=== PATIENT | female | born 1970 | race Hispanic/Latino ===

== ENCOUNTER 2024-11-06 13:07 | Emergency (ER) | payer OTHER, SELFPAY ==
[2024-11-06 13:12] VITALS: BP 153/74; PULSE 92; RESP 16; TEMP 36.8; O2SAT 100
--- NOTE | 2024-11-06 13:32 | ED.GENADULT ---
HPI - General Adult General Chief complaint: Upper Respiratory Infection Stated complaint: Chest Pain Time Seen by Provider: 11/06/24 13:32 Source: patient Mode of arrival: ambulatory Limitations: no limitations History of Present Illness HPI narrative: 54 y/o female with hx HTN presented for c/o palpitations and chest tightness today. States the palpitations cause her to cough. She was seen by cardiology in April for elevated heart rate, after she wore a monitor for a month she was told everything was ok. Denies dizziness, chest pain, n/v or fatigue.. Related Data Home Medications ?Medication ?Instructions ?Recorded ?Confirmed ?Last Taken ?Type amlodipine 10 mg tablet mg 11/06/24 Unknown History duloxetine 30 mg capsule,delayed mg PO 11/06/24 Unknown History release ergocalciferol (vitamin D2) 1,250 11/06/24 Unknown History mcg (50,000 unit) capsule famotidine 20 mg tablet mg 11/06/24 Unknown History folic acid 1 mg tablet 11/06/24 Unknown History lisinopril 20 tablet 11/06/24 Unknown History mg-hydrochlorothiazide 12.5 mg tablet meloxicam 15 mg tablet mg 11/06/24 Unknown History methotrexate sodium 2.5 mg tablet mg 11/06/24 Unknown History spironolactone 50 mg tablet mg 11/06/24 Unknown History Allergies Allergy/AdvReac Type Severity Reaction Status Date / Time No Known Allergies Allergy Verified 11/06/24 13:28 Review of Systems Review of Systems: CONSTITUTIONAL: Denies body aches, fever, chills, or sweats. EYES: Denies visual changes, redness, or discharge. ENT: Denies rhinorrhea, congestion, sore throat, or otalgia. CARDIOVASCULAR: Denies chest pain, reports palpitations RESPIRATORY: reports cough denies dyspnea. GASTROINTESTINAL: Denies abdominal pain, nausea, vomiting, or diarrhea. MUSCULOSKELETAL: Denies back pain, joint pain, or myalgia. NEUROLOGIC: Denies headache All systems reviewed & are unremarkable except as noted in HPI and below PMFSH Past Medical History Medical History (Updated 11/06/24 @ 14:05 by Tiffanie Puentes APRN) HTN (hypertension) Comments At time of signature, I have reviewed and agree with nursing past medical, surgical, social and family history unless otherwise noted. Please see nursing chart for further information. There is no relevant family history pertinent to the presenting complaint Exam Narrative: GENERAL: Well-appearing EYES: EOMI. No redness or drainage. Conjunctivae normal. ENT: Mucous membranes pink and moist. No rhinorrhea. TMs normal bilaterally. Throat normal. Uvula midline. NECK: Normal AROM. Supple. No lymphadenopathy. CHEST: No respiratory distress. Clear to auscultation. HEART: Regular rate and rhythm. murmur is appreciated. EXTREMITIES: Normal range of motion. No edema. SKIN: Warm, dry, no rash. Capillary refill normal. Normal skin turgor. NEURO: No focal deficits. Alert and oriented x3. Gait steady. PSYCH: Normal affect. Course Course Emergency Course: Patient is aware of diagnosis, understands and agrees to treatment plan. Anticipatory guidance given. Patient agrees to follow-up as directed and is aware of reasons to seek care at the emergency department. Portions of this record may have been created with voice recognition software Level of Care: Express Care Visit Vital Signs Vital signs: Vital Signs Temperature 98.2 F 11/06/24 13:12 Pulse Rate 92 11/06/24 13:12 Respiratory Rate 16 11/06/24 13:12 Blood Pressure 153/74 H 11/06/24 13:12 Pulse Oximetry 100 11/06/24 13:12 Oxygen Delivery Room Air 11/06/24 13:12 Temperature 98.2 F 11/06/24 13:12 Pulse Rate 92 11/06/24 13:12 Respiratory Rate 16 11/06/24 13:12 Blood Pressure 153/74 H 11/06/24 13:12 Pulse Oximetry 100 11/06/24 13:12 Oxygen Delivery Room Air 11/06/24 13:12 Medical Decision Making [facility] Narrative Medical decision making narrative: discussed physical exam findings EKG, normal sinus rhythm. Advised ER transfer for complaint of palpitations and chest tightness today Differential Diagnosis Differential Diagnosis: STEMI, AAA, PE, pneumothorax, cardiac tamponade, esophageal rupture, pneumonia, GERD, musculoskeletal pain, endocarditis, pericarditis, URI, bronchitis, anxiety Vital Signs Vital Signs: Vital Signs Temperature 98.2 F 11/06/24 13:12 Pulse Rate 92 11/06/24 13:12 Respiratory Rate 16 11/06/24 13:12 Blood Pressure 153/74 H 11/06/24 13:12 Pulse Oximetry 100 11/06/24 13:12 Oxygen Delivery Room Air 11/06/24 13:12 Temperature 98.2 F 11/06/24 13:12 Pulse Rate 92 11/06/24 13:12 Respiratory Rate 16 11/06/24 13:12 Blood Pressure 153/74 H 11/06/24 13:12 Pulse Oximetry 100 11/06/24 13:12 Oxygen Delivery Room Air 11/06/24 13:12 reviewed ECG Data EKG #1: Attestation: I personally reviewed and interpreted this ECG as follows: (NSR 89, [place] 182, QRS 90, QT/QTc 376/423) ECG completion date: 11/06/24 ECG completion time: 13:51 Prior ECG tracings: not available for review EKG Interpretation: normal rate and sinus rhythm Discharge Plan Discharge Clinical Impression: Heart palpitations Patient Disposition: Acute Care Hospital Condition: Stable Patient Language: Slovak Prescriptions: No Action lisinopril-hydrochlorothiazide 20-12.5 mg tablet meloxicam 15 mg tablet famotidine 20 mg tablet methotrexate sodium 2.5 mg tablet amlodipine 10 mg tablet folic acid 1 mg tablet ergocalciferol (vitamin D2) 1,250 mcg (50,000 unit) capsule spironolactone 50 mg tablet duloxetine 30 mg capsule,delayed release(DR/EC) PO Follow-up/Referrals: PHYSICIAN,CHIEF OF PRODUCTION [Primary Care Provider] - Time of Disposition: 14:04
--- NOTE | 2024-11-06 13:43 | ECG_ITS ---
Test Date: 2024-11-06 13:51:26 Measurements Intervals [place] Rate: 89 P: 57 LA: 182 QRS: 34 QRSD: 90 T: 62 QT: 376 QTc: 460 Interpretive Statements SINUS RHYTHM NONSPECIFIC T-WAVE ABNORMALITY No previous ECG available for comparison Electronically Signed On 11-06-2024 19:01:36 CAMBERING MACHINE OPERATOR by Neto Larkin
== END 2024-11-06 14:08 | disposition short-term general hospital (02) ==
PROVIDERS: Emergency Provider Nurse Practitioner Family
DX: R00.2 Palpitations (principal); I10 Essential (primary) hypertension
CPT/HCPCS: 93005; 99203; G0463

== ENCOUNTER 2025-01-12 13:38 | Emergency (ER) | payer OTHER, SELFPAY ==
--- OUTSIDE RECORDS SUMMARY | 2025-01-12 13:40 | XMS_ITS | Referral Summary ---
Author Organization [facility] Address [address] [facility] [place] [address] Care Team Providers Care Gospel Worker Name Role Phone Kerry Tejeda MD Unavailable Leo Bliss MD Unavailable [phone] Nasreen Nicholson PA-C Primary Care Pr ovider Source Comments [facility],non-owned Affiliates and Associated Physician Practices is amultiple site organization consisting of ambulatory clinics and hospital sitesin [place], [place], [place] and [place]. This disclosure is being madepursuant to the Care Everywhere program and may not contain all information available regarding this patient. Last updated 18.[facility] Encounters Date Type Department Care Team Description 12/29/2024 Refill [facility] - Rheumatology [address] [facility] [address] [place] [address] Lilibeth Smith MD Refill Request 12/18/2024 10:05 AM CORPORATE DIRECTOR - 12/18/2024 11:59 PM CORPORATE DIRECTOR Hospital Encounter [facility] Imaging Services - Radiology [address] [place], [place] [id number] David Childs MD Discharge Disposition: Home or Self Care 12/18/2024 Travel 12/18/2024 9:00 AM CORPORATE DIRECTOR Office Visit [facility] Care [address] [facility] [address] [facility] [place] [address] David Childs MD Lumbar facet arthropathy (Primary Dx); HNP (herniated nucleus pulposus), lumbar; Spinal stenosis of lumbar region, unspecified whether neurogenic claudication present; Lumbosacral radiculitis; Gait difficulty 12/16/2024 Refill [facility] Rheumatology [id number] [place] [address] [address] [place] [address] Lilibeth Smith MD Refill Request 12/11/2024 Travel 12/11/2024 1:15 PM CORPORATE DIRECTOR Office Visit [address] [place] [address] Lilibeth Smith MD Psoriatic arthritis (HCC) (Primary Dx); Immunosuppressed status (HCC); Vitamin D deficiency; Polyarthralgia; High risk medications (not anticoagulants) long-term use; Elevated sed rate 11/24/2024 Refill [facility] [id number] [place] [address] [address] [place] [address] Lilibeth Smith MD MEDICATION REFILL 11/19/2024 Refill [facility] [id number] [place] [address] [address] [place] [address] Lilibeth Smith MD Refill Request 10/13/[address] [address] Lilibeth Smith MD Refill Request from Last 3 Months Allergies No known active allergies Medications * Be aware that medications may not be up to date on this document. Alwaysverify current medications with the patient. Medication Sig Dispensed Refills Start Date End Date Status fluticasone propionate (FLONASE) 50 MCG/ACT nasal spray Augusta 1 [place]a into each nostril 2 times daily. 1 Bottle 0 1 Active HYDROcodone-ac etaminophen (NORCO) 5-325 MG tablet Take 1 Tab by mouth every 4 hours as needed for Pain 15 Tab 7 Active Additional Information Patient not taking.Reported on 08/16/2023 lisinopril-hyd roCHLOROthiazi de (PRINZIDE; ZESTORETIC) 20-12.5 MG tablet 0 Active amLODIPine (NORVASC) 5 MG tablet TK 1 T PO D FOR HIGH BP 0 Active acetaminophen CR (TYLENOL ARTHRITIS PAIN) 650 MG tablet Active cyclobenzaprin e (FLEXERIL) 5 MG tablet Take 1 (one) tablet by mouth nightly as needed Active traMADol-aceta minophen (Ultracet) 37.5-325 MG tablet Take 1 (one) tablet by mouth every 6 hours as needed for Pain 12 tablet 3 Active Additional Information Patient not taking.Reported on 04/09/2024 predniSONE (Deltasone) 5 MG tablet 4 tab po daily x 1 week, then 3 tab po daily x 1 week and then 2 tab po daily x 1 week and then 1 tab daily until finished and then stop 70 tablet 3 Active Additional Information Patient not taking.Reported on 12/20/2023 folic acid (Folvite) 1 MG tablet Take 1 (one) tablet by mouth once daily 90 tablet 1 4 Active meloxicam (Mobic) 15 MG tablet TAKE 1 TABLET BY MOUTH EVERY DAY WITH FOOD NEEDED FOR PAIN 90 tablet 4 Active vitamin D, ergocalciferol , (Drisdol) 1.25 MG (53524 UT) capsuleIndicat ions:Psoriatic arthritis (HCC),Immunosu ppressed status (HCC),Vitamin D deficiency Take 1 (one) capsule by mouth every 7 days 12 capsule 4 Active cefadroxil (Duricef) 500 MG capsule 4 Active famotidine (Pepcid) 20 MG tablet Take 1 (one) tablet by mouth 2 times daily Active omeprazole (PriLOSEC) 40 MG capsule Take 1 (one) capsule by mouth once daily 4 Active prednisoLONE acetate (Pred Forte) 1 % ophthalmic suspension INSTILL 1 DROP INTO LEFT EYE FOUR TIMES A DAY FOR 10 DAYS. 4 Active spironolactone (Aldactone) 50 MG tablet Take 1 (one) tablet by mouth once daily 4 Active DULoxetine (Cymbalta) 30 MG capsule Take 1 (one) capsule by mouth once daily 30 capsule 2 5 Active etanercept (Enbrel SureClick) 50 MG/ML auto-injector pen Inject 50 (fifty) mg subcutaneously every 7 days 4 mL 3 5 Active methotrexate 2.5 MG tabletIndicati ons:Psoriatic arthritis (HCC) TAKE 6 TABLETS BY MOUTH EVERY 7 DAYS. 72 tablet 5 Active methotrexate 2.5 MG tabletIndicati ons:Psoriatic arthritis (HCC) TAKE 6 TABLETS BY MOUTH EVERY 7 DAYS. 72 tablet 4 12/30/19 25 Discontinued etanercept (Enbrel SureClick) 50 MG/ML auto-injector pen Inject 50 (fifty) mg subcutaneously every 7 days 4 mL 3 5 12/16/19 25 Discontinued(Re order) Active Problems Patient Care Coordination No te Formatting of this note migh t be different from the original. Primary Care Provider: Kerry Tejeda MD [address] [phone] Referring Provider: Kerry Tejeda MD [address] [place] [address] Nurse prat: itzel nunez Problem Noted Date Diagnosed Date Gastroesophageal reflux disease 03/03/2022 Pain of upper abdomen 03/03/2022 Screen for colon cancer 03/03/2022 Anemia 03/03/2022 Chondromalacia of patellofemoral joint 7 Immunizations Name Administration Dates Next Due INFLUENZA VACCINE, TRIV. (AF LURIA, FLUZONE TRIVALENT; 6MO+) (IIV3) 09/22/2021 Covid Moderna primary monovalent 12+ yr 0.5mL ,02/17/2021 HEP A VACCINE, ADULT 02/05/2008 INFLUENZA VACCINE, QUADR. (A FLURIA, FLUZONE QUADRIVALENT; 6MO+) (IIV4) 10/29/2019 INFLUENZA VACCINE, QUADR. (F LUZONE; FLULAVAL; FLUARIX; AFLURIA QUADRIVALENT; 6MO+), 0.5 ML (IIV4) 12/18/2016 Social History Tobacco Use Types Packs/Day Years Used Date Smoking Tobacco: Never Smokeless Tobacco: Never Tobacco Cessation:Counseling Given: Not Answered Alcohol Use Standard Drinks/Week Comments No 0 (1 standard drink = 0.6 oz pur e alcohol) PHQ-2 Answer Date Recorded Patient Health Questionnaire-2 Score 0 12/18/2024 Sex and Gender Information Value Date Recorded Sex Assigned at Female 09/02/2021 8:47 PM CDT Gender Identity Female 09/02/2021 8:47 PM CDT Sexual Orientation Straight 09/02/2021 8: 47 PM CDT Last Filed Vital Signs Vital Sign Reading Time Taken Comments Blood Pressure 174/94 12/18/2024 9:22 AM CORPORATE DIRECTOR Pulse 94 12/18/2024 9:20 AM CORPORATE DIRECTOR Temperature 37 C (98.6 F) 08/14/2023 9:15 AM CDT Respiratory Rate 16 08/14/2023 9:15 AM CDT Oxygen Saturation 98% 08/07/2024 1:16 PM CDT Inhaled Oxygen Concentration - - Weight 81.6 kg (180 lb) 12/18/2024 9:20 AM CORPORATE DIRECTOR Height 149.9 cm (4' 11 ) 12/18/2024 9:20 AM CORPORATE DIRECTOR Body Mass Index 36.36 12/18/2024 9:20 AM CORPORATE DIRECTOR Functional Status Functional Status Response Date of Assess ment Is person deaf or have serious hearing difficult y? No 04/05/2022 Is person blind or have serious difficulty seein g? No 04/05/2022 Does person have serious dif ficulty walking/climbing stairs? No 04/05/2022 Does person have difficulty dressing/bathing? No 04/05/2022 Does person have difficulty doing errands alone? No 04/05/2022 Cognitive Status Response Date of Assessm ent Does person have difficulty concentrating/remembering/making decisions? No 04/05/2022 Plan of Treatment Upcoming Encounters Date Type Department Care Team (Late st Contact Info) Description 01/29/2025 9:20 AM CORPORATE DIRECTOR Office Visit [facility] [id number] [place] [address] [address] [facility] [place] [id number] [place] [id number] [place] [address] [address] [place] [address] 04/11/2025 8:30 AM CDT Office Visit [facility] - Rheumatology [address] [facility] [address] [place] [address] Ami Mclaughlin, NAIL MACHINE OPERATOR-SLAB INSPECTOR [address] [place] [address] Procedures Procedure Name Priority Date/Time Associated Diagnosis Comments XR LUMBAR SPINE 4VW OR MORE Routine 12/18/2024 10:17 AM CORPORATE DIRECTOR Lumbar facet arthropathy HNP (herniated nucleus pulposus), lumbar Spinal stenosis of lumbar region, unspecified whether neurogenic claudication present Lumbosacral radiculitis HEPATITIS SCREEN ACUTE ([facility]) Routine 12/04/2024 1:06 PM CORPORATE DIRECTOR Psoriatic arthritis (HCC) Immunosuppressed status (HCC) Vitamin D deficiency Polyarthralgia High risk medications (not anticoagulants) long-term use Elevated sed rate CBC W AUTO DIFFERENTIAL Routine 12/04/2024 1:06 PM CORPORATE DIRECTOR Psoriatic arthritis (HCC) Immunosuppressed status (HCC) Vitamin D deficiency Polyarthralgia High risk medications (not anticoagulants) long-term use Elevated sed rate VITAMIN D 25-HYDROXY Routine 12/04/2024 1:05 PM CORPORATE DIRECTOR Psoriatic arthritis (HCC) Immunosuppressed status (HCC) Vitamin D deficiency Polyarthralgia High risk medications (not anticoagulants) long-term use Elevated sed rate QUANTIFERON TB-GOLD Routine 12/04/2024 1 :05 PM CORPORATE DIRECTOR Psoriatic arthritis (HCC) Immunosuppressed status (HCC) Vitamin D deficiency Polyarthralgia High risk medications (not anticoagulants) long-term use Elevated sed rate ERYTHROCYTE SEDIMENTATION RATE Routine 12/04/2024 1:05 PM CORPORATE DIRECTOR Psoriatic arthritis (HCC) Immunosuppressed status (HCC) Vitamin D deficiency Polyarthralgia High risk medications (not anticoagulants) long-term use Elevated sed rate C-REACTIVE PROTEIN Routine 12/04/2024 1: 05 PM CORPORATE DIRECTOR Psoriatic arthritis (HCC) Immunosuppressed status (HCC) Vitamin D deficiency Polyarthralgia High risk medications (not anticoagulants) long-term use Elevated sed rate COMPREHENSIVE METABOLIC PANEL Routine 12/04/2024 1:05 PM CORPORATE DIRECTOR Psoriatic arthritis (HCC) Immunosuppressed status (HCC) Vitamin D deficiency Polyarthralgia High risk medications (not anticoagulants) long-term use Elevated sed rate MAMMO BILAT SCREENING W AZUCENA Routine 08/17/2023 2:49 PM CDT Encounter for screening mammogram for malignant neoplasm of breast HIV-1 HIV-2 ANTIBODY + HIV P24 AG PANEL STAT 07/03/2022 11:37 PM CDT ENDOSCOPY, COLON, SCREENING Routine 04/05/2022 8:43 AM CDT LIPID PROFILE AM Draw 12/18/2016 1:40 AM CORPORATE DIRECTOR from Last 3 Months or Most Recently Relevant to Health Maintenance Results * XR Lumbar Spine 4Vw or More (12/18/2024 10:17 AM CORPORATE DIRECTOR) Anatomical Region Laterality Modality Spine Computed Radiogr aphy 12/18/2024 2:34 PM CORPORATE DIRECTOR Impressions 12/18/2024 3:17 PM CORPORATE DIRECTOR IMPRESSION: No acute osseous abnormality. Edited by Tracey Hodges on 12/18/2024 2:51 PM > Interpreting Provider: Deshaun Bella MD on 12/18/2024 3:17 PM Narrative 12/18/2024 3:17 PM CORPORATE DIRECTOR PROCEDURE: XR LUMBAR SPINE 4VW OR MORE DATE/TIME OF EXAM: 12/18/2024 10:17 AM INDICATION: M47.816: Spondylosis without myelopathy or radiculopathy, lumbar region. M51.26: Other intervertebral disc displacement, lumbar region. M48.061: Spinal stenosis, lumbar region without neurogenic claudication. M54.17: Radiculopathy, lumbosacral region. Additional History: COMPARISON: None. TECHNIQUE: 5 views. FINDINGS: Mild endplate degenerative changes are present. There is no acute fracture, subluxation or dislocation. Procedure Note Deshaun Bella MD - 12/18/2024 PROCEDURE: XR LUMBAR SPINE 4VW OR MORE DATE/TIME OF EXAM: 12/18/2024 10:17 AM INDICATION: M47.816: Spondylosis without myelopathy or radiculopathy, lumbar region. M51.26: Other intervertebral disc displacement, lumbar region. M48.061: Spinal stenosis, lumbar region without neurogenic claudication. M54.17: Radiculopathy, lumbosacral region. Additional History: COMPARISON: None. TECHNIQUE: 5 views. FINDINGS: Mild endplate degenerative changes are present. There is no acutefracture, subluxation or dislocation. IMPRESSION: No acute osseous abnormality. Edited by Tracey Hodges on 12/18/2024 2:51 PM > Interpreting Provider: Deshaun Bella MD on 12/18/2024 3:17 PM David Childs MD DIAGNOSTIC IMAGING O RDERABLES * HEPATITIS SCREEN ACUTE ([facility]) (12/04/2024 1:06 PM CORPORATE DIRECTOR) Hepatitis A Virus Antibody IgM Negative Negative [facility] ACCOUNT BILL Comment: A negative anti-HAV IgM result suggests no recent or current HAV infection. Hepatitis B Virus Surface Antigen Negative Negative [facility] ACCOUNT BILL Hepatitis B Core Virus Antibody IgM Negative Negative [facility] ACCOUNT BILL Hepatitis C Antibody Non Reactive Non Reactive [facility] ACCOUNT BILL Comment: Performed at: - [facility] [address] [id number] Relations Mgr: Asa Perdomo PhD, Phone: [phone] Interpretation Comment [facility] ACCOUNT BILL Comment: Not infected with HCV unless early or acute infection is suspected (which may be delayed in an immunocompromised individual), or other evidence exists to indicate HCV infection. Blood BLOOD SPECIMEN / Unknown 12/04/2024 1:06 PM CORPORATE DIRECTOR 12/04/2024 Narrative [facility] ACCOUNT BILL - 12/05/2024 7:09 AM CORPORATE DIRECTOR Performed at: - [facility] [address] [id number] Relations Mgr: Asa Perdomo PhD, Phone: [phone] Lilibeth Smith MD LAB - CHEMISTRY ROBERTH STEPHENSON [facility] ACCOUNT BILL [address] [place] [address] * (ABNORMAL) CBC WITH DIFFERENTIAL (12/04/2024 1:06 PM CORPORATE DIRECTOR) WBC 6.3 3.4 - 10.8 x10E3/uL [facility] ACCOUNT BILL RBC 3.72(L) 3.77 - 5.28 x10E6/uL [facility] ACCOUNT BILL Hemoglobin 12.0 11.1 - 15.9 g/dL [facility] ACCOUNT BILL Hematocrit 36.8 34.0 - 46.6 % [facility] ACCOUNT BILL MCV 99(H) 79 - 97 fL [facility] ACCOUNT BILL MCH 32.3 26.6 - 33.0 pg [facility] ACCOUNT BILL MCHC 32.6 31.5 - 35.7 g/dL [facility] ACCOUNT BILL RDW 12.8 11.7 - 15.4 % [facility] ACCOUNT BILL Platelet Count 307 150 - 450 x10E3/uL [facility] ACCOUNT BILL Granulocytes % 55 Not Estab. % [facility] ACCOUNT BILL Lymphocytes % 28 Not Estab. % [facility] ACCOUNT BILL Monocytes % 10 Not Estab. % [facility] ACCOUNT BILL Eosinophils % 5 Not Estab. % [facility] ACCOUNT BILL Basophils % 1 Not Estab. % [facility] ACCOUNT BILL Granulocytes Absolute 3.5 1.4 - 7.0 x10E3/uL [facility] ACCOUNT BILL Lymphocytes Absolute 1.8 0.7 - 3.1 x10E3/uL [facility] ACCOUNT BILL Monocytes Absolute 0.6 0.1 - 0.9 x10E3/uL [facility] ACCOUNT BILL Eosinophils Absolute 0.3 0.0 - 0.4 x10E3/uL [facility] ACCOUNT BILL Basophils Absolute 0.0 0.0 - 0.2 x10E3/uL [facility] ACCOUNT BILL Immature Granulocytes 1 Not Estab. % [facility] ACCOUNT BILL Immature Granulocytes Absolute 0.1 0.0 - 0.1 x10E3/uL [facility] ACCOUNT BILL Blood BLOOD SPECIMEN / Unknown 12/04/2024 1:06 PM CORPORATE DIRECTOR 12/04/2024 Narrative [facility] ACCOUNT BILL - 12/05/2024 6:10 AM CORPORATE DIRECTOR Performed at: - [address], [place], [place] [id number] Relations Mgr: Asa Perdomo PhD, Phone: [phone] Lilibeth Smith MD LAB - HEMATOLOGY ORD ERABLES [facility] ACCOUNT BILL [address] [place] [address] * C-REACTIVE PROTEIN (12/04/2024 1:05 PM CORPORATE DIRECTOR) C-Reactive Protein 2 0 - 10 mg/L [facility] ACCOUNT BILL Blood BLOOD SPECIMEN / Unknown 12/04/2024 1:05 PM CORPORATE DIRECTOR 12/04/2024 Narrative [facility] ACCOUNT BILL - 12/05/2024 7:09 AM CORPORATE DIRECTOR Performed at: - [facility] [address] [id number] Relations Mgr: Asa Perdomo PhD, Phone: [phone] Lilibeth Smith MD LAB - CHEMISTRY ORDE RABCHIQUITA Performing Organization Address City/[facility]/ZIP Co de Phone Number [facility] ACCOUNT BILL [address] [place] [address] * VITAMIN D 25-HYDROXY (12/04/2024 1:05 PM CORPORATE DIRECTOR) Vitamin D, 25 Hydroxy 37.3 30.0 - 100.0 ng/mL [facility] ACCOUNT BILL Comment: Vitamin D deficiency has been defined by the Roosevelt of Medicine and an Endocrine Society practice guideline as a level of serum 25-OH vitamin D less than 20 ng/mL (1,2). The Endocrine Society went on to further define vitamin D insufficiency as a level between 21 and 29 ng/mL (2). 1. IOM (Roosevelt of Medicine). 2010. Dietary reference intakes for calcium and D. [place]: The National Academies Press. 2. Gunjan MF, Kam [place], Huy BELLO, et al. Evaluation, treatment, and prevention of vitamin D deficiency: an Endocrine Society clinical practice guideline. JCEM. 2010; 96(7):1911-30. Blood BLOOD SPECIMEN / Unknown 12/04/2024 1:05 PM CORPORATE DIRECTOR 12/04/2024 Narrative [facility] ACCOUNT BILL - 12/05/2024 8:13 AM CORPORATE DIRECTOR Performed at: [address] [place] [id number] Relations Mgr: Asa Perdomo PhD, Phone: [phone] Lilibeth Smith MD LAB - CHEMISTRY ROBERTH STEPHENSON [facility] ACCOUNT BILL [address] [place] [address] * QUANTIFERON TB-GOLD (12/04/2024 1:05 PM CORPORATE DIRECTOR) [facility] QuantiFERON Incubation Incubation performed. [facility] ACCOUNT BILL QuantiFERON-TB Gold Plus Negative Negative [facility] ACCOUNT BILL Comment: No response to M tuberculosis antigens detected. Infection with M tuberculosis is unlikely, but high risk individuals should be considered for additional testing (ATS/IDSA/CDC Clinical Practice Guidelines, 2017). The reference range is an Antigen minus Nil result of <0.35 IU/mL. Chemiluminescence immunoassay methodology Performed at: [address] [place] [id number] Relations Mgr: Asa Perdomo PhD, Phone: [phone] QuantiFERON Criteria Comment [facility] ACCOUNT BILL Comment: QuantiFERON-TB Gold Plus is a qualitative indirect test for M tuberculosis infection (including disease) and is intended for use in conjunction with risk assessment, radiography, and other medical and diagnostic evaluations. The QuantiFERON-TB Gold Plus result is determined by subtracting the Nil value from either TB antigen (Ag) value. The Mitogen tube serves as a control for the test. QuantiFERON TB1 Ag Value 0.05 IU/mL [facility] ACCOUNT BILL QuantiFERON TB2 Ag Value 0.07 IU/mL [facility] ACCOUNT BILL QuantiFERON Nil Value 0.01 IU/mL [facility] ACCOUNT BILL QuantiFERON Mitogen Value >10.00 IU/mL [facility] ACCOUNT BILL Blood BLOOD SPECIMEN / Unknown 12/04/2024 1:05 PM CORPORATE DIRECTOR 12/04/2024 Narrative [facility] ACCOUNT BILL - 12/06/2024 7:07 PM CORPORATE DIRECTOR Performed at: [address] [place] [id number] Relations Mgr: Asa Perdomo PhD, Phone: [phone] Lilibeth Smith MD LAB - CHEMISTRY ORDKarina STEPHENSON Performing Organization Address City/[facility] Co de Phone Number [facility] ACCOUNT BILL [address] [place] [address] * ERYTHROCYTE SEDIMENTATION RATE (12/04/2024 1:05 PM CORPORATE DIRECTOR) Erythrocyte Sedimentation Rate Westergren 23 0 - 40 mm/hr [facility] ACCOUNT BILL Blood BLOOD SPECIMEN / Unknown 12/04/2024 1:05 PM CORPORATE DIRECTOR 12/04/2024 Narrative [facility] ACCOUNT BILL - 12/05/2024 7:09 AM CORPORATE DIRECTOR Performed at: - [address] [id number] Relations Mgr: Asa Perdomo PhD, Phone: [phone] Lilibeth Smith MD LAB - HEMATOLOGY ORD LANA Performing Organization Address [facility] Co de Phone Number [facility] ACCOUNT BILL [address] [place] [address] * (ABNORMAL) COMPREHENSIVE METABOLIC PANEL (12/04/2024 1:05 PM CORPORATE DIRECTOR) Pathologist [facility] Glucose 139(H) 70 - 99 mg/dL [facility] ACCOUNT BILL BUN 11 6 - 24 mg/dL [facility] ACCOUNT BILL Creatinine 0.56(L) 0.57 - 1.00 mg/dL [facility] ACCOUNT BILL eGFR by CKD-EPI 109 >59 mL/min/1.7 3 [facility] ACCOUNT BILL BUN/Creatinine Ratio 20 9 - 23 [facility] ACCOUNT BILL Sodium 139 134 - 144 mmol/L [facility] ACCOUNT BILL Potassium 3.9 3.5 - 5.2 mmol/L [facility] ACCOUNT BILL Chloride 101 96 - 106 mmol/L [facility] ACCOUNT BILL CO2 22 20 - 29 mmol/L [facility] ACCOUNT BILL Calcium 10.1 8.7 - 10.2 mg/dL [facility] ACCOUNT BILL Protein Total 7.9 6.0 - 8.5 g/dL [facility] ACCOUNT BILL Albumin 4.4 3.8 - 4.9 g/dL [facility] ACCOUNT BILL Globulin Total 3.5 1.5 - 4.5 g/dL [facility] ACCOUNT BILL Bilirubin Total <0.2 0.0 - 1.2 mg/dL [facility] ACCOUNT BILL Alkaline Phosphatase 84 44 - 121 IU/L [facility] ACCOUNT BILL AST 26 0 - 40 IU/L [facility] ACCOUNT BILL ALT 30 0 - 32 IU/L [facility] ACCOUNT BILL Blood BLOOD SPECIMEN / Unknown 12/04/2024 1:05 PM CORPORATE DIRECTOR 12/04/2024 Narrative [facility] ACCOUNT BILL - 12/05/2024 7:09 AM CORPORATE DIRECTOR Performed at: 01 - [facility] [address], [place] [id number] Relations Mgr: Asa Perdomo PhD, Phone: [phone] Lilibeth Smith MD LAB - CHEMISTRY ROBERTH STEPHENSON [facility] ACCOUNT BILL [address] [place] [address] * MAMMO BILAT SCREENING W AZUCENA (08/17/2023 2:49 PM CDT) Anatomical Region Laterality Modality Breast Bilateral Mammography 08/18/2023 8:23 AM CDT Impressions 08/18/2023 8:34 AM CDT : There is no mammographic evidence of malignancy. OVERALL FINAL ASSESSMENT: BI-RADS Category 2: Benign. Annual screening mammography is recommended. > Interpreting Provider: Jigna Mcbride MD on 08/18/2023 8:34 AM Narrative 08/18/2023 8:34 AM CDT EXAMINATION: BILATERAL DIGITAL SCREENING MAMMOGRAM AND BILATERAL BREAST TOMOSYNTHESIS HISTORY: Screening. COMPARISON: Serial examinations dating back to 2020. TECHNIQUE: BILATERAL digital breast tomosynthesis (DBT) and synthetic 2D digital mammogram images were obtained (bilateral craniocaudal and mediolateral oblique projections) including computer aided detection (CAD.) BREAST PARENCHYMAL COMPOSITION:Category C: The breasts are heterogeneously dense which may obscure small masses. MAMMOGRAM FINDINGS: There are no new suspicious masses, calcifications, or areas of architectural distortion in either breast, and there has been no significant interval change. There is a stable benign cyst in the left breast. Melisa Marvin NAIL MACHINE OPERATOR-SLAB INSPECTOR MAMMO ORDERABLES * HIV-1 HIV-2 ANTIBODY + HIV P24 AG PANEL (07/03/2022 11:37 PM CDT) HIV1/2 Ab + P24 Ag Non Reactive Non Reactive 07/04/2022 12:37 AM CDT [facility] Blood BLOOD SPECIMEN / Unknown Venipuncture / Unknown 07/03/2022 11:37 PM CDT 07/03/2022 11:56 PM CDT Narrative [facility] - 07/04/2022 12:37 AM CDT No Laboratory evidence of HIV infection. Lizette Mazariegos MD LAB - CHEMISTRY ROBERTH STEPHENSON [facility] Organization Address City/State/ZIP Co de Phone Number [facility] [address] [place] [address] * ENDOSCOPY, COLON, SCREENING (04/05/2022 8:43 AM CDT) Report Endoscopy POC _ Patient Name: Ghada Coto Procedure Date: 04/05/2022 8:43 AM Date of : 1970 Admit Type: Outpatient Age: 51 Gender: Female Attending MD: Shira Hogan MD _ Procedure: Colonoscopy Indications: Screening for colorectal malignant neoplasm Providers: Shira Hogan MD (Doctor) Referring MD: Ivet Tejeda MD (Referring MD) Medicines: Monitored Anesthesia Care Complications: No immediate complications. _ Estimated Blood Loss: Estimated blood loss: none. Procedure: Pre-Anesthesia Assessment: - Prior to the procedure, a History and Physical was performed, and patient medications and allergies were reviewed. The patient's tolerance of previous anesthesia was also reviewed. The risks and benefits of the procedure and the sedation options and risks were discussed with the patient. All questions were answered, and informed consent was obtained. Prior Anticoagulants: The patient has taken no previous anticoagulant or antiplatelet agents. After reviewing the risks and benefits, the patient was deemed in satisfactory condition to undergo the procedure. After I obtained informed consent, the scope was passed under direct vision. Throughout the procedure, the patient's blood pressure, pulse, and oxygen saturations were monitored continuously. The Colonoscope was introduced through the anus and advanced to the terminal ileum. The colonoscopy was performed without difficulty. The patient tolerated the procedure well. The quality of the bowel preparation was evaluated using the BBPS (Dillon Bowel Preparation Scale) with scores of: Right Colon = 3, Transverse Colon = 3 and Left Colon = 3 (entire mucosa seen well with no residual staining, small fragments of stool or opaque liquid). The total BBPS score equals 9. Findings: The perianal and digital rectal examinations were normal. A 3 mm polyp was found in the sigmoid colon. The polyp was sessile. The polyp was removed with a cold biopsy forceps. Resection and retrieval were complete. The exam was otherwise without abnormality on direct and retroflexion views. The terminal ileum appeared normal. Internal hemorrhoids were found during retroflexion. _ Impression: - One 3 mm polyp in the sigmoid colon, removed with a cold biopsy forceps. Resected and retrieved. - The examination was otherwise normal on direct and retroflexion views. - The examined portion of the ileum was normal. - Internal hemorrhoids. Recommendation: - Repeat colonoscopy in 5 years for surveillance. Procedure Code(s): --- Professional --- 84152, Colonoscopy, flexible; with biopsy, single or multiple --- Technical --- 31130, Colonoscopy, flexible; with biopsy, single or multiple Diagnosis Code(s): --- Professional --- Z12.11, Encounter for screening for malignant neoplasm of colon K63.5, Polyp of colon --- Technical --- Z12.11, Encounter for screening for malignant neoplasm of colon K63.5, Polyp of colon CPT copyright 2019 [employer]. All rights reserved. The codes documented in this report are preliminary and upon dynamic balancer set up worker review may be revised to meet current compliance requirements. __ Shira Hogan MD 04/05/2022 10:22:06 AM Number of Addenda: 0 Note Initiated On: 04/05/2022 8:43 AM [facility] 04/05/2022 8:43 AM CDT Shira Hogan MD GI PROCEDURE ORDERAB LES [facility] [place] [address] * LIPID PROFILE (12/18/2016 1:40 AM CORPORATE DIRECTOR) Cholesterol 193 <200 mg/dL 12/18/2016 2:25 AM CORPORATE DIRECTOR [facility] Triglycerides 135 <150 mg/dL 12/18/2016 2:25 AM CORPORATE DIRECTOR [facility] HDL Cholesterol 47 >40 mg/dL 7 2:25 AM CORPORATE DIRECTOR [facility] LDL Calculated 119 <130 mg/dL 12/18/2016 2:25 AM CORPORATE DIRECTOR [facility] VLDL Calculated 27 <=30 mg/dL 7 2:25 AM [facility] Chol HDL Ratio 4.1 <4.5 12/18/2016 2:25 AM CORPORATE DIRECTOR [facility] LDL/HDL Ratio 2.5 <5.0 12/18/2016 2:25 AM [facility] Blood BLOOD SPECIMEN / Unknown 12/18/2016 1:40 AM CORPORATE DIRECTOR 12/18/2016 2:02 AM CORPORATE DIRECTOR Matt Busch DO LAB - CHEMISTRY ORD ERABLES [facility] [address] [place] [address] from Last 3 Months or Most Recently Relevant to Health Maintenance Administered Medications Advance Directives * Full Code (Latest Code Status on File) Date Activated Date Inactivated Comments 12/17/2016 6:19 AM 12/18/2016 3:34 PM Care Teams Gospel Worker Relationship Specialty Start Date End Date Nasreen Nicholson PA-C [address] [place] [address] PCP - General Physician Frame Trimmer 12/11/24 Kerry Tejeda MD [address] [place] [address] Internal Medicine 08/05/20 [place] [address] [place] [id number] Orthopedic Surgery 07/26/17
--- OUTSIDE RECORDS SUMMARY | 2025-01-12 13:40 | XMS_ITS | Clinical Summary ---
Author Organization [facility] Address [address] [place] [address] Care Team Providers Care Insurance Case Manager Name Role Phone Nasreen Nicholson Primary Care Prov ider Allergies No known active allergies Medications lisinopril-hydr oCHLOROthiazide (ZESTORETIC) 20-12.5 mg per tablet Take 1 tablet by mouth daily Active etanercept (ENBREL) 25 mg/0.5 mL (0.5) injection Inject 1 mL (50 mg total) under the skin once a week Takes on Monday Active methotrexate 2.5 mg tablet Take 1 tablet (2.5 mg total) by mouth every 7 days Takes on Mondays Active folic acid (FOLVITE) 1 mg tablet Take 1 tablet (1 mg total) by mouth daily Active amLODIPine (NORVASC) 5 mg tablet Take 1 tablet (5 mg total) by mouth daily Active omeprazole (PriLOSEC) 40 mg capsule Take 1 capsule (40 mg total) by mouth daily 30 capsule Active Active Problems Problem Noted Date Diagnosed Date Anxiety 03/05/2024 Diastolic dysfunction 02/13/2024 Left ventricular hypertrophy 02/13/2024 Low vitamin D level 02/13/2024 Migraine 02/13/2024 Mitral valve insufficiency 02/13/2024 Psoriatic arthritis 02/13/2024 Overview (07/18/2024): RHEUM follows Palpitations 02/09/2024 Assessment & Plan (02/09/2024 4:59 AM CDT): Patient presents with tachycardia from home. Appears to be spontaneous and has never happened before. ECG read by myself, sinus tachycardia, no axis deviation, no ST-T deviations, probable left atrial enlargement noted. There was a soft murmur noted on physical exam. She did have a feeling of impending doom with 1 episode of tachycardia. Differential includes but not limited to SVT and/or anxiety and/or other arrhythmia and/or endocrine disorder (thyroid disorder ruled out) - continue on telemetry - daily CBC, CMP, magnesium, phosphorus - echocardiogram - PT/OT Arthritis 02/09/2024 Assessment & Plan (02/09/2024 5:00 AM CDT): Unsure of type of arthritis, patient had DMARD therapy. Most likely rheumatoid arthritis due to deformity in the nails. -continue home methotrexate and etanercept Essential hypertension 02/09/2024 Assessment & Plan (02/09/2024 4:59 AM CDT): Continue home amlodipine and lisinopril, blood pressure not controlled Class 1 obesity 02/09/2024 Assessment & Plan (02/09/2024 4:59 AM CDT): Body mass index is 34.5 kg/m . - nutrition consultation Anemia 03/03/2022 Gastroesophageal reflux disease without esophagi tis 03/03/2022 Pain of upper abdomen 03/03/2022 Chondromalacia of patellofemoral joint 7 Facial cellulitis 03/14/2015 Lip pain 03/14/2015 Lip swelling 03/14/2015 Encounters Date Type Department Care Team Description 11/06/2024 6:27 PM TIRE BEADER MAKER - 11/06/2024 8:21 PM TIRE BEADER MAKER Emergency [facility] Emergency Department [address] [place] [address] Chest pain, unspecified type (Primary Dx) Discharge Disposition: Discharge to home or self care 10/31/2024 12:20 PM TIRE BEADER MAKER - 10/31/2024 11:59 PM TIRE BEADER MAKER Hospital Encounter [facility] [address] [place] [address] Encounter for disability determination Discharge Disposition: Discharge to home or self care from Last 3 Months Immunizations Immunization Administration Dates Next Due Hep A, Adult 02/05/2008 Influenza, Quadrivalent, Split, Intramuscular Influenza, Quadrivalent, Spl it, Preservative Free, Intramuscular 12/18/2016 Influenza, Trivalent, IM (MDV) 09/22/2021 Moderna SARS-CoV-2 Monovalent Vaccination (12+ Y RS) 03/17/2021,02/17/2021 PPD TEST 06/27/2008 Surgical History Surgery Date Site/Laterality Comments TUBAL LIGATION Medical History Medical History Date Comments Personal history of other di seases of the female genital tract History of - (Adde d by TW Conv) Hypertension Family History Medical History Relation Name Comments Diabetes Mother Heart disease Mother Kidney disease Mother Heart attack Sister Kidney disease Sister Diabetes Son Relation Name Status Comments Mother Sister Son Social History Tobacco Use Types Packs/Day Years Used Date Smoking Tobacco: Never Smokeless Tobacco: Never Tobacco Cessation:Counseling Given: No [employer] Utilities Answer Date Recorded In the past 12 months has [place], gas, oil, or water isocket threatened to shut off services in your home? No 02/09/2024 Social Connection and Isolat ion Panel [NHANES] Answer Date Recorded In a typical week, how many times do you talk on the phone with family, friends, or neighbors? Three times a week 02/09/2024 How often do you get togethe r with friends or relatives? More than three times a week 02/09/2024 How often [facility] you attend [facility] or [facility] services? Never 02/09/2024 Do you belong to any clubs o r organizations such as jain groups, unions, fraternal or athletic groups, or school groups? No 02/09/2024 How often do you attend meet ings of the clubs or organizations you belong to? Never 02/09/2024 Are you , , di vorced, , never , or living with a partner? 02/09/2024 AUDIT-C Answer Date Recorded Q1: How often do you have a drink containing alcohol? Never 02/09/2024 Q2: How many drinks containi ng alcohol do you have on a typical day when you are drinking? Patient does not drink Q3: How often do you have si x or more drinks on one occasion? Never 02/09/2024 Overall Financial Resource Strain (CARDIA) Answe r Date Recorded How hard is it for you to pa y for the very basics like food, housing, medical care, and heating? Not very hard 02/09/2024 Hunger Vital Sign Answer Date Recorded Within the past 12 months, y ou worried that your food would run out before you got the money to buy more. Never true 02/09/20 24 Within the past 12 months, t he food you bought just didn't last and you didn't have money to get more. Never true 02/09/2024 PRAPARE - Transportation Answer Date Re corded In the past 12 months, has l ack of transportation kept you from medical appointments or from getting medications? No 01/25 In the past 12 months, has l ack of transportation kept you from meetings, work, or from getting things needed for daily living? No 02/09/2024 Housing Stability Vital Sign Answer Ismael e Recorded In the last 12 months, was t here a time when you were not able to pay the mortgage or rent on time? No 02/09/2024 In the last 12 months, how many places have you lived? 1 02/09/2024 In the last 12 months, was t here a time when you did not have a steady place to sleep or slept in a usp (including now)? No 02/09/2024 Personal Safety Answer Date Recorded Have you ever been in or are you currently in a harmful physical or emotional relationship or is someone making you feel afraid or unsafe? Denies 11/06/2024 Education Answer Date Recorded What is the highest level of school you have completed or the highest degree you have received? Associate degree: occupational, technical, or vocational program 02/09/2024 Comments No Sex and Gender Information Value Date Recorded Sex Assigned at Not on file Legal Sex Female 7:24 AM TIRE BEADER MAKER Gender Identity Not on file Sexual Orientation Not on file Obstetrics History Para Term AB IAB SAB Ectopic Multiple Livin g Live Births 4 4 4 0 0 0 0 0 0 0 0 Date Outcome GA Total Labor Labor/2nd/3rd Weight Sex Type Anes PTL Renetta A1 A5 Name Clin 992 Term M Vag-Sp ont 999 Term M CS-Uns pec 005 Term F CS-Uns pec 009 Term F CS-Uns pec Last Filed Vital Signs Vital Sign Reading Time Taken Comments Blood Pressure 128/59 11/06/2024 7:53 PM TIRE BEADER MAKER Pulse 86 11/06/2024 7:53 PM TIRE BEADER MAKER Temperature 36.8 C (98.2 F) 11/06/2024 2:41 PM TIRE BEADER MAKER Respiratory Rate 15 11/06/2024 7:53 PM TIRE BEADER MAKER Oxygen Saturation 97% 11/06/2024 7:53 PM TIRE BEADER MAKER Inhaled Oxygen Concentration - - Weight 78.9 kg (174 lb) 11/06/2024 2:41 PM TIRE BEADER MAKER Height 149.9 cm (4' 11 ) 11/06/2024 2:41 PM TIRE BEADER MAKER Body Mass Index 35.14 11/06/2024 2:41 PM TIRE BEADER MAKER Plan of Treatment Health Maintenance Due Date Last Done Comments Colon Cancer Screening-Colonoscopy 1971 Depression Screening 1971 Hepatitis C Screening 1971 Pneumococcal vaccine <65 (1 of 2 - PCV) 1977 DTaP/Tdap/Td Vaccine (1 - Tdap) 1982 Hepatitis B Screening 1989 Zoster Vaccine (1 of 2) 1990 Covid-19 Vaccine (3 - Modern a risk series) 04/14/2021 03/17/2021, 02/17/2021 Influenza Vaccine (#1) 2024 , 10/29/2019, 12/18/2016 Breast Cancer Screening-Mammogram 08/08/2025 08/08/2024, 08/17/2023, 08/17/2023, Additional history exists Cervical Cancer Screening 08/08/2025 08/08/2024, 10/2024 Regular Well Visit/Exam 18-64 08/08/2025 08/08/2024 Procedures Procedure Name Priority Date/Time Associated Diagnosis Comments PRO B-TYPE NATRIURETIC PEPTIDE STAT 11/06/2024 7:14 PM TIRE BEADER MAKER TROPONIN T HIGH-SENSITIVITY 4-HR Timed 11/06/2024 7:14 PM TIRE BEADER MAKER XR CHEST 1 VIEW ED 11/06/2024 4:05 PM TIRE BEADER MAKER EGFR STAT 11/06/2024 2:54 PM TIRE BEADER MAKER DIFFERENTIAL AUTO STAT 11/06/2024 2:5 4 PM TIRE BEADER MAKER TROPONIN T HIGH-SENSITIVITY SERIES (BASELINE, 2HR, 4HR, 6HR) STAT 11/06/2024 2:54 PM TIRE BEADER MAKER COMPREHENSIVE METABOLIC PANEL STAT 11/06/2024 2:54 PM TIRE BEADER MAKER CBC WITH AUTO DIFFERENTIAL STAT 11/06/2024 2:54 PM TIRE BEADER MAKER ECG 12-LEAD STAT 11/06/2024 2:38 PM TIRE BEADER MAKER XR HAND RIGHT 2 VIEWS Schedule Routine, Read Routine (OP Routine) 10/31/2024 12:33 PM TIRE BEADER MAKER Encounter for disability determination XR HAND LEFT 2 VIEWS Schedule Routine, Read Routine (OP Routine) 10/31/2024 12:33 PM TIRE BEADER MAKER Encounter for disability determination HIGH RISK HPV DNA DETECTION WITH GENOTYPING Routine 08/08/2024 11:11 AM CDT Screening for malignant neoplasm of cervix SCREENING MAMMOGRAM BILATERAL W FRANCISCO J Schedule Routine, Read Routine (OP Routine) 08/08/2024 11:04 AM CDT Encounter for screening mammogram for malignant neoplasm of breast from Last 3 Months or Most Recently Relevant to Health Maintenance Results * Troponin T high-sensitivity 4-hour (11/06/2024 7:14 PM TIRE BEADER MAKER) Trop T hs <6 <=14 ng/L Comment: Interpretive Data For further hscTnT resources including the diagnostic algorithm and an aid in interpretation, copy and paste this link: https://nrl.testcatalog.org/show/hsTrop Current Interpretive Data last revised 2020. Trop T hs delta 0 ng/L [facility] ([facility]) Trop T hs interp Insignificant [facility] ([facility]) Blood 11/06/2024 7:14 PM TIRE BEADER MAKER 11/06/2024 7:17 PM TIRE BEADER MAKER us Angel Parekh MD LAB BLOOD ORDERABLES Final R esult [facility] ([place]) 1 [facility] Department [place] [address] * Pro B-type natriuretic peptide (11/06/2024 7:14 PM TIRE BEADER MAKER) NT-proBNP <36 <=300 pg/mL Comment: Interpretive Comments: A. Dyspnea in Acute Care Setting All Ages: < 300 pg/ml, acute heart failure unlikely. < 50 yrs: 300 - 450 pg/ml, further investigation warranted. > 450 pg/ml, acute heart failure likely. 50 - 74 yrs: 300 - 900 pg/ml, further investigation warranted. > 900 pg/ml, acute heart failure likely . > or = 75 yrs: 450 - 1800 pg/ml, further investigation warranted. > 1800 pg/ml, acute heart failure likely. B. Non-acute Setting < 75 yrs < 125 pg/ml, rules out heart failure. > or = 125 pg/ml, further investigation warranted. > or = 75 yrs < 450 pg/ml, rules out heart failure. > or = 450 pg/ml, further investigation warranted. - Knowledge of each individual patient's NT-proBNP range may be more useful than using similar cut-points for every patient. Please note that marked elevations in NT-proBNP levels may be observed in state other than Left Ventricular Congestive Failure, including: acute coronary syndromes, right heart strain/failure (including pulmonary embolism and cor pulmonale), critical illness, renal failure, as well as advanced age. - References: 1. Omar BELTRAN et.al. Eur Heart J. 2006:27:330-337. 2. Norman KEITH, Janet LOPEZ. J. AM Robson Cardiol: Cardiovasc Imag. 2009;2: 216- 225. Interpretive Data Last Revised Date: 2018. Blood 11/06/2024 7:14 PM TIRE BEADER MAKER 11/06/2024 7:17 PM TIRE BEADER MAKER us Shyanne HARPER LAB BLOOD ORDERABLES Final Resu lt [facility] NANCY) 1 [facility] [place] [address] * XR Chest 1 Vw Portable (if patient condition/safety warrant portable) (11/06/2024 4:05 PM TIRE BEADER MAKER) Anatomical Region Laterality Modality Body, Chest N/A Computed Radiogr aphy 11/06/2024 4:32 PM TIRE BEADER MAKER Narrative 11/06/2024 4:34 PM TIRE BEADER MAKER EXAM DESCRIPTION: XR CHEST 1 VIEW REASON FOR STUDY: chest pain Pt to ED for c/o heart palpitations, chest pressure and heart burn x 1-2 hours. No cardiac hx. TECHNIQUE: Sing radiographic view(s) of the chest. COMPARISON: Radiograph dated February 14, 2024 FINDINGS: LUNGS: No focal opacity, pleural effusion, or pneumothorax. HEART/MEDIASTINUM: Cardiac silhouette normal in size. Mediastinal and hilar contours appear normal. LINES/TUBES: None. BONES: No acute osseous abnormality. IMPRESSION: No acute cardiopulmonary abnormality. THIS IS AN ELECTRONICALLY VERIFIED FINAL REPORT 11/06/2024 4:34 PM - Electronically signed by Tong Monge M.D. JA: SHARLENE Report ID: [id number] Reading Location: [id number] Procedure Note Tong Monge MD - 11/06/2024 EXAM DESCRIPTION: XR CHEST 1 VIEW REASON FOR STUDY: chest pain Pt to ED for c/o heart palpitations, chest pressure and heart burn x 1-2 hours. No cardiac hx. TECHNIQUE: Sing radiographic view(s) of the chest. COMPARISON: Radiograph dated February 14, 2024 FINDINGS: LUNGS: No focal opacity, pleural effusion, or pneumothorax. HEART/MEDIASTINUM: Cardiac silhouette normal in size. Mediastinal andhilar contours appear normal. LINES/TUBES: None. BONES: No acute osseous abnormality. IMPRESSION: No acute cardiopulmonary abnormality. THIS IS AN ELECTRONICALLY VERIFIED FINAL REPORT 11/06/2024 4:34 PM - Electronically signed by Tong Monge M.D. JA: SHARLENE Report ID: [id number] Reading Location: [id number] Angel Parekh MD IMG XR PROCEDURES Final Resu lt * Troponin T high-sensitivity series (baseline, 2hr, 4hr, 6hr) (11/06/2024 2:54 PM TIRE BEADER MAKER) Trop T hs <6 <=14 ng/L Comment: Interpretive Data For further hscTnT resources including the diagnostic algorithm and an aid in interpretation, copy and paste this link: https://nrl.testcatalog.org/show/hsTrop Current Interpretive Data last revised 2020. Blood 11/06/2024 2:54 PM TIRE BEADER MAKER 11/06/2024 2:59 PM TIRE BEADER MAKER Angel Parekh MD LAB BLOOD ORDERABLES Final R esult [facility] [place]) [address] [facility] Department [place] [address] * eGFR (11/06/2024 2:54 PM TIRE BEADER MAKER) eGFR >90 >=60 mL/min/1. 73 m2 Comment: Interpretive Data Reference Interval Normal >/= 90 mL/min/1.73m2 Mildly decreased* 60 - 89 mL/min/1.73m2 Mildly to moderately decreased 45 - 59 mL/min/1.73m2 Moderately to severely decreased 30 - 44 mL/min/1.73m2 Severely decreased 15 - 29 mL/min/1.73m2 Kidney Failure < 15 mL/min/1.73m2 *Relative to young adult level Estimated glomerular filtration rate is determined by the 2020 CKD-EPI equation recommended by the National Kidney Foundation (A Unifying Approach to GFR Estimation: Recommendations of the NKF-ASK Task Force on Reassessing the Inclusion of Race in Diagnosing Kidney Disease, JASN 2020). The CKD-EPI equation should not be used for patients with unstable renal function and has not been validated in children and those over 70. Current interpretive data was last reviewed 2021. Blood 11/06/2024 2:54 PM TIRE BEADER MAKER 11/06/2024 2:59 PM TIRE BEADER MAKER us Angel Parekh MD LAB BLOOD ORDERABLES Final R esult [facility] ([place]) 1 [facility] Department [place] [address] * (ABNORMAL) Differential, auto (11/06/2024 2:54 PM TIRE BEADER MAKER) Neutrophil abs 5.0 1.5 - 6.5 K/cumm Imm gran abs 0.1 0.0 - 0.1 K/cumm [facility] ([place]) Lymphocyte abs 2.3 0.8 - 3.3 K/cumm [facility] ([place]) Monocyte abs 0.9(H) 0.2 - 0.8 K/cumm [facility] ([place]) Eosinophil abs 0.3 0.0 - 0.5 K/cumm [facility] ([place]) Basophil abs 0.1 0.0 - 0.1 K/cumm [facility] ([place]) Neutrophil pct 57.5 % [facility] ([place]) Comment: Interpretive Data Percent cell count reference ranges are not reported, since discordance with absolute values may lead to misinterpretation of CBC data. Current Interpretive Data was last revised on 2018. Imm gran pct 1.2 % [facility] ([place]) Comment: Interpretive Data Percent cell count reference ranges are not reported, since discordance with absolute values may lead to misinterpretation of CBC data. Current Interpretive Data was last revised on 2018. Lymphocyte pct 27.1 % [facility] ([place]) Comment: Interpretive Data Percent cell count reference ranges are not reported, since discordance with absolute values may lead to misinterpretation of CBC data. Current Interpretive Data was last revised on 2018. Monocyte pct 10.3 % [facility] ([place]) Comment: Interpretive Data Percent cell count reference ranges are not reported, since discordance with absolute values may lead to misinterpretation of CBC data. Current Interpretive Data was last revised on 2018. Eosinophil pct 3.3 % [facility] ([place]) Comment: Interpretive Data Percent cell count reference ranges are not reported, since discordance with absolute values may lead to misinterpretation of CBC data. Current Interpretive Data was last revised on 2018. Basophil pct 0.6 % [facility] ([place]) Comment: Interpretive Data Percent cell count reference ranges are not reported, since discordance with absolute values may lead to misinterpretation of CBC data. Current Interpretive Data was last revised on 2018. Blood 11/06/2024 2:54 PM TIRE BEADER MAKER 11/06/2024 2:59 PM TIRE BEADER MAKER Angel Parekh MD LAB BLOOD ORDERABLES Final R esult [facility] ([place]) 1 [facility] Department [place] [address] * (ABNORMAL) CBC with auto differential (11/06/2024 2:54 PM TIRE BEADER MAKER) WBC 8.6 3.8 - 9.9 K/cumm Hgb 12.5 11.9 - 15.5 g/dL [facility] ([place]) Hct 36.9 35.6 - 45.5 % [facility]) Plt 319 150 - 400 K/cumm [facility] ([place]) MPV 9.4 9.1 - 12.3 fL [facility]) RBC 3.82(L) 3.90 - 5.20 M/cumm [facility] ([place]) MCV 96.6(H) 81.3 - 96.4 fL [facility] ([place]) MCH 32.7 27.1 - 33.3 pg [facility] ([place]) MCHC 33.9 32.3 - 35.7 g/dL [facility] ([place]) RDW CV 14.2 11.1 - 14.9 % [facility] ([place]) RDW SD 50.1(H) 35.7 - 48.1 fL [facility] ([place]) NRBC abs 0.00 0.00 - 0.01 K/cumm [facility] Blood (Blood, Venous) 11/06/2024 2:54 PM TIRE BEADER MAKER 11/06/2024 2:59 PM TIRE BEADER MAKER Angel Parekh MD LAB BLOOD ORDERABLES Final R esult [facility] [address] [facility] Department [place] [address] * (ABNORMAL) Comprehensive metabolic panel (11/06/2024 2:54 PM TIRE BEADER MAKER) Sodium 133(L) 135 - 145 mmol/L Potassium, pl 4.0 3.3 - 4.9 mmol/L [facility] ([place]) Chloride 100 97 - 110 mmol/L [facility] CO2 24 22 - 32 mmol/L [facility] ([place]) Anion gap 9 2 - 15 mmol/L [facility] ([place]) BUN 17 6 - 25 mg/dL [facility] ([place]) Creatinine 0.63 0.60 - 1.10 mg/dL [facility] ([place]) Glucose 93 70 - 199 mg/dL [facility] Comment: Interpretive Data Fasting glucose >/= 126 mg/dl is diagnostic for diabetes. Fasting is defined as no caloric intake for at least 8 hours. Fasting glucose between 100 mg/dl to 125 mg/dl is diagnostic of prediabetes. In a patient with classic symptoms of hyperglycemia or hyperglycemic crisis, a random glucose >/= 200 mg/dl is diagnostic for diabetes. In the absence of unequivocal hyperglycemia, results should be confirmed by repeat testing. The classification and Diagnosis of Diabetes Diabetes Care 202; 46: S19-S40. Current interpretive data was last revised 2022. Calcium 10.2 8.5 - 10.3 mg/dL [facility] ([place]) Bilirubin, total 0.3 0.1 - 1.2 mg/dL [facility] ([place]) Protein, pl 8.6(H) 6.5 - 8.5 g/dL [facility] ([place]) Albumin 4.7 3.5 - 5.0 g/dL [facility] ([place]) Alk phos 68 40 - 130 Units/L [facility] ([place]) ALT 40 7 - 45 Units/L [facility] ([place]) AST 40 10 - 45 Units/L [facility] ([place]) Blood 11/06/2024 2:54 PM TIRE BEADER MAKER 11/06/2024 2:59 PM TIRE BEADER MAKER Angel Parekh MD LAB BLOOD ORDERABLES Final R esult Performing Organization Address [facility] Co de Phone Number [facility] ([place]) [address] [facility] [place] [address] * ECG 12 lead (11/06/2024 2:38 PM TIRE BEADER MAKER) 11/06/2024 2:38 PM TIRE BEADER MAKER Narrative [facility] 11/06/2024 5:32 PM TIRE BEADER MAKER Vent Rate: 93 bpm RR Interval: 639 msec MI Interval: 169 msec QRS Duration: 113 msec QT Interval: 372 msec QTC Interval: 423 msec P-R-T [place]: 53 - 25 - 75 degrees IMPRESSION: SINUS RHYTHM MODERATE INTRAVENTRICULAR CONDUCTION DELAY [110+ ms QRS DURATION] NONSPECIFIC ST \T\ T-WAVE ABNORMALITY BORDERLINE ECG No change from prior EKG Electronically Signed By: Jaden Perry MD Angel Parekh MD ECG ORDERABLES Final Result Performing Organization Address [facility] Co de Phone Number [facility] * XR Hand Right 2 Views (10/31/2024 12:33 PM TIRE BEADER MAKER) Anatomical Region Laterality Modality Upper Extremities, Hand Right Computed Radiography 10/31/2024 9:47 PM TIRE BEADER MAKER Narrative 10/31/2024 9:48 PM TIRE BEADER MAKER EXAM DESCRIPTION: XR HAND LEFT 2 VIEWS; XR HAND RIGHT 2 VIEWS REASON FOR STUDY: Encounter for disability determination Arthritis. NKI Encounter for disability FINDINGS: Two views each hand submitted without comparison. Left hand: There are no erosions. There are no fractures. Ulnar positive variance is present. There is moderate basal thumb and mild polyarticular interphalangeal joint osteoarthritis. There is no dorsal wrist soft tissue swelling. Right hand: There are no erosions. There are no fractures. There is mild basal thumb and polyarticular interphalangeal joint osteoarthritis. There is no dorsal wrist soft tissue swelling. IMPRESSION: No radiographic evidence of inflammatory arthritis. 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 THIS IS AN ELECTRONICALLY VERIFIED FINAL REPORT 10/31/2024 9:48 PM - Electronically signed by Isaac Khan M.D. MF: QUINTIN Report ID: [id number] Reading Location: [id number] Procedure Note Isaac Khan MD - 10/31/2024 EXAM DESCRIPTION: XR HAND LEFT 2 VIEWS; XR HAND RIGHT 2 VIEWS REASON FOR STUDY: Encounter for disability determination Arthritis. NKI Encounter for disability FINDINGS: Two views each hand submitted without comparison. Left hand: There are no erosions. There are no fractures. Ulnar positive varianceis present. There is moderate basal thumb and mild polyarticularinterphalangeal joint osteoarthritis. There is no dorsal wrist soft tissue swelling. Right hand: There are no erosions. There are no fractures. There is mild basal thumband polyarticular interphalangeal joint osteoarthritis. There is no dorsalwrist soft tissue swelling. IMPRESSION: No radiographic evidence of inflammatory arthritis. 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 THIS IS AN ELECTRONICALLY VERIFIED FINAL REPORT 10/31/2024 9:48 PM - Electronically signed by Isaac Khan M.D. MF: QUINTIN Report ID: [id number] Reading Location: [id number] James Smith MD IMG XR PROCEDURES Final Result * XR Hand Left 2 Views (10/31/2024 12:33 PM TIRE BEADER MAKER) Anatomical Region Laterality Modality Upper Extremities, Hand Left Computed Radiography 10/31/2024 9:47 PM TIRE BEADER MAKER Narrative 10/31/2024 9:48 PM TIRE BEADER MAKER EXAM DESCRIPTION: XR HAND LEFT 2 VIEWS; XR HAND RIGHT 2 VIEWS REASON FOR STUDY: Encounter for disability determination Arthritis. NKI Encounter for disability FINDINGS: Two views each hand submitted without comparison. Left hand: There are no erosions. There are no fractures. Ulnar positive variance is present. There is moderate basal thumb and mild polyarticular interphalangeal joint osteoarthritis. There is no dorsal wrist soft tissue swelling. Right hand: There are no erosions. There are no fractures. There is mild basal thumb and polyarticular interphalangeal joint osteoarthritis. There is no dorsal wrist soft tissue swelling. IMPRESSION: No radiographic evidence of inflammatory arthritis. 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 THIS IS AN ELECTRONICALLY VERIFIED FINAL REPORT 10/31/2024 9:48 PM - Electronically signed by Isaac RIBEIRO: QUINTIN Report ID: [id number] Reading Location: [id number] Procedure Note Isaac Khan MD - 10/31/2024 EXAM DESCRIPTION: XR HAND LEFT 2 VIEWS; XR HAND RIGHT 2 VIEWS REASON FOR STUDY: Encounter for disability determination Arthritis. NKI Encounter for disability FINDINGS: Two views each hand submitted without comparison. Left hand: There are no erosions. There are no fractures. Ulnar positive varianceis present. There is moderate basal thumb and mild polyarticularinterphalangeal joint osteoarthritis. There is no dorsal wrist soft tissue swelling. Right hand: There are no erosions. There are no fractures. There is mild basal thumband polyarticular interphalangeal joint osteoarthritis. There is no dorsalwrist soft tissue swelling. IMPRESSION: No radiographic evidence of inflammatory arthritis. 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 THIS IS AN ELECTRONICALLY VERIFIED FINAL REPORT 10/31/2024 9:48 PM - Electronically signed by Isaac Khan M.D. MF: QUINTIN Report ID: [id number] Reading Location: [id number] James Smith MD IMG XR PROCEDURES Final Result * High Risk HPV DNA Detection with Genotyping (Molecular component) (08/08/2024 11:11 AM CDT) HPV HR 16 Not Detected Not Detected [facility] Comment:Testing performed by : [facility], [address] [facility], [id number] HPV HR 18 Not Detected Not Detected [facility] Comment:Testing performed by : [facility], [address] [facility], [id number] HPV HR Non 16/18 Not Detected Not Detected [facility] Comment: Interpretive Data Nucleic acid amplification for detection of high-risk Human Papilloma virus (HPV) is performed by the Dipesh Jose 6800 HPV test. This assay specifically detects HPV-16 and HPV-18 genotypes. The following HPV genotypes are detected as high-risk HPV: HPV-31, 33, 35, ,39, 45, 51, 52, 56, 58, 59, 66, and 68. This assay has been approved by the [place] Food and Drug Administration for detection of HPV in cervical specimens collected by a physician using an endocervical brush/spatula or cervical broom and placed in the ThinPrep Pap Test PreservCyt collection containers. The performance characteristics of this test have been verified by the [facility] Molecular Infectious Disease laboratory. Correlate with separately reported cytology results, as applicable. Interpretive data last revised 23 Testing performed by: [facility], [address] [place]., [address] Endocervical 08/08/2024 11:1 1 AM CDT 08/09/2024 12:01 PM CDT Narrative [facility] - 08/09/2024 11:38 PM CDT Clinical history and diagnosis->Liquid-based PAP test with high risk HPV test- Z12.4 Number of vials->1 Testing type->Screening Last menstrual period (date if known)->02/12/24 us Teto Mcdowell DO LAB BODY FLUIDS AND STO OLS ORDERABLES Final Result [facility] [address] Department [place] [address] [facility] * Screening Mammogram Bilateral W Francisco J (08/08/2024 11:04 AM CDT) Anatomical Region Laterality Modality Breast Bilateral Mammography 08/12/2024 9:47 AM CDT Addenda Addendum by Mahnaz Garrison MD on 08/30/2024 4:56 PM CDT Density: The breasts are extremely dense, which lowers the sensitivity of mammography. Electronically signed by: Mahnaz Garrison M.D. Impressions 08/12/2024 9:47 AM CDT There is no mammographic evidence of malignancy. A 1 year screening mammogram is recommended. BI-RADS: 1 - Negative. The patient has been or will be contacted. The patient will be entered into a reminder system with a target due date of 1 year for her next mammogram. Electronically signed by: Mahnaz Garrison M.D. Narrative 08/12/2024 9:47 AM CDT EXAMINATION: SCREENING MAMMOGRAM BILATERAL W FRANCISCO J ORDERING HEALTHCARE PROVIDER: TETO MCODWELL HISTORY: Routine screening mammography. COMPARISON: 08/17/2023, 09/07/2022, 08/16/2022, 06/22/2021 TECHNIQUE: CC and MLO views of the bilateral breasts were obtained with digital technique using breast tomosynthesis with C view. Computer aided detection was utilized. FINDINGS: DENSITY: The tissue of the breasts is extremely dense, which lowers the sensitivity of mammography. BREASTS: There are no suspicious masses, suspicious calcifications, or other suspicious findings in either breast. There has been no suspicious interval change. Procedure Note Mahnaz Garrison MD - 08/12/2024 EXAMINATION: SCREENING MAMMOGRAM BILATERAL W FRANCISCO J ORDERING HEALTHCARE PROVIDER: TETO MCDOWELL HISTORY: Routine screening mammography. COMPARISON: 08/17/2023, 09/07/2022, 08/16/2022, 06/22/2021 TECHNIQUE: CC and MLO views of the bilateral breasts were obtained with digital technique using breast tomosynthesis with C view. Computer aided detection was utilized. FINDINGS: DENSITY: The tissue of the breasts is extremely dense, which lowers the sensitivity of mammography. BREASTS: There are no suspicious masses, suspicious calcifications, or other suspicious findings in either breast. There has been no suspicious interval change. IMPRESSION: There is no mammographic evidence of malignancy. A 1 year screening mammogram is recommended. BI-RADS: 1 - Negative. The patient has been or will be contacted. The patient will be entered into a reminder system with a target due date of 1 year for her next mammogram. Electronically signed by: Mahnaz Garrison M.D. Teto Mcdowell DO IMG MAMMO PROCEDURES Ed ited Result - Final from Last 3 Months or Most Recently Relevant to Health Maintenance Insurance [facility] CHO[facility] PLUS [facility] CHO[facility] PLUS [place] [employer] Care Teams Insurance Case Manager Relationship Specialty Start Date End Date Nasreen Nicholson PA PCP - General Neurosurgery 03/19/24
--- OUTSIDE RECORDS SUMMARY | 2025-01-12 13:40 | XMS_ITS | Patient Health Summary ---
Author Organization [facility] Address [address] [place] [address] Care Team Providers Care Change Over Name Role Phone Kerry Tejeda MD Unavailable Leo Bliss MD Unavailable [phone] Nasreen Nicholson PA-C Primary Care Pr ovider Note from [facility],non-owned Affiliates and Associated Physician Practices is amultiple site organization consisting of ambulatory clinics and hospital sitesin [place], [place], [place] and [place]. This disclosure is being madepursuant to the Care Everywhere program and may not contain all information available regarding this patient. Last updated 18.[facility] Allergies No known active allergies Medications * Be aware that medications may not be up to date on this document. Alwaysverify current medications with the patient. * fluticasone propionate (FLONASE) 50 MCG/ACT nasal spray(Started 04/24/2011) Fanwood 1 Fanwood into each nostril 2 times daily. * HYDROcodone-acetaminophen (NORCO) 5-325 MG tablet(Started 08/06/2017) Take 1 Tab by mouth every 4 hours as needed for Pain * lisinopril-hydroCHLOROthiazide (PRINZIDE; ZESTORETIC) 20-12.5 MG tablet (Started 07/05/2020) * amLODIPine (NORVASC) 5 MG tablet(Started 06/29/2020) TK 1 T PO D FOR HIGH BP * acetaminophen CR (TYLENOL ARTHRITIS PAIN) 650 MG tablet * cyclobenzaprine (FLEXERIL) 5 MG tablet Take 1 (one) tablet by mouth nightly as needed * traMADol-acetaminophen (Ultracet) 37.5-325 MG tablet(Started 08/16/2023) Take 1 (one) tablet by mouth every 6 hours as needed for Pain * predniSONE (Deltasone) 5 MG tablet(Started 11/02/2023) 4 tab po daily x 1 week, then 3 tab po daily x 1 week and then 2 tab po daily x 1 week and then 1 tab daily until finished and then stop * folic acid (Folvite) 1 MG tablet(Started 04/09/2024) Take 1 (one) tablet by mouth once daily 1 refill by 04/09/2025 * meloxicam (Mobic) 15 MG tablet(Started 09/09/2024) TAKE 1 TABLET BY MOUTH EVERY DAY WITH FOOD NEEDED FOR PAIN * vitamin D, ergocalciferol, (Drisdol) 1.25 MG (20316 UT) capsule(Started 10/04/2024) Take 1 (one) capsule by mouth every 7 days * cefadroxil (Duricef) 500 MG capsule(Started 02/15/2024) * famotidine (Pepcid) 20 MG tablet Take 1 (one) tablet by mouth 2 times daily * omeprazole (PriLOSEC) 40 MG capsule(Started 11/06/2024) Take 1 (one) capsule by mouth once daily * prednisoLONE acetate (Pred Forte) 1 % ophthalmic suspension(Started 02/24/2024) INSTILL 1 DROP INTO LEFT EYE FOUR TIMES A DAY FOR 10 DAYS. * spironolactone (Aldactone) 50 MG tablet(Started 07/05/2024) Take 1 (one) tablet by mouth once daily * DULoxetine (Cymbalta) 30 MG capsule(Started 12/11/2024) Take 1 (one) capsule by mouth once daily 2 refills by 12/11/2025 * etanercept (Enbrel SureClick) 50 MG/ML auto-injector pen(Started 12/16/2024) Inject 50 (fifty) mg subcutaneously every 7 days 3 refills by 12/16/2025 * methotrexate 2.5 MG tablet(Started 12/30/2024) TAKE 6 TABLETS BY MOUTH EVERY 7 DAYS. Ended Medications* methotrexate 2.5 MG tablet(Started 10/04/2024)(Discontinued) TAKE 6 TABLETS BY MOUTH EVERY 7 DAYS. * etanercept (Enbrel SureClick) 50 MG/ML auto-injector pen(Started 12/11/2024) (Discontinued) Inject 50 (fifty) mg subcutaneously every 7 days 3 refills by 12/11/2025 Active Problems Problem Noted Date Diagnosed Date Gastroesophageal reflux disease 03/03/2022 Pain of upper abdomen 03/03/2022 Screen for colon cancer 03/03/2022 Anemia 03/03/2022 Chondromalacia of patellofemoral joint 7 Immunizations * INFLUENZA VACCINE, TRIV. (AFLURIA, FLUZONE TRIVALENT; 6MO+) (IIV3)(Given 09/22/2021) * Covid Moderna primary monovalent 12+ yr 0.5mL(Given 03/17/2021, 02/17/2021) * HEP A VACCINE, ADULT(Given 02/05/2008) * INFLUENZA VACCINE, QUADR. (AFLURIA, FLUZONE QUADRIVALENT; 6MO+) (IIV4)(Given 10/29/2019) * INFLUENZA VACCINE, QUADR. (FLUZONE; FLULAVAL; FLUARIX; AFLURIA QUADRIVALENT; 6MO+), 0.5 ML (IIV4)(Given 12/18/2016) Social History Tobacco Use Types Packs/Day Years [...] Comments Blood Pressure 174/94 12/18/2024 9:22 AM [employer] Pulse 94 12/18/2024 9:20 AM [employer] Temperature 37 C (98.6 F) 08/14/2023 9:15 AM CDT Respiratory Rate 16 08/14/2023 9:15 AM CDT Oxygen Saturation 98% 08/07/2024 1:16 PM CDT Inhaled Oxygen Concentration - - Weight 81.6 kg (180 lb) 12/18/2024 9:20 AM [employer] Height 149.9 cm (4' 11 ) 12/18/2024 9:20 AM [employer] Body Mass Index 36.36 12/18/2024 9:20 AM [employer] Procedures * XR LUMBAR SPINE 4VW OR MORE(Performed 12/18/2024) Performed for Lumbar facet arthropathy, HNP (herniated nucleus pulposus), lumbar, Spinal stenosis of lumbar region, unspecified whether neurogenic claudication present, Lumbosacral radiculitis * HEPATITIS SCREEN ACUTE ([facility])(Performed 12/04/2024) Performed for Psoriatic arthritis (HCC), Immunosuppressed status (HCC), Vitamin D deficiency, Polyarthralgia, High risk medications (not anticoagulants) long- term use, Elevated sed rate * CBC W AUTO DIFFERENTIAL(Performed 12/04/2024) Performed for Psoriatic arthritis (HCC), Immunosuppressed status (HCC), Vitamin D deficiency, Polyarthralgia, High risk medications (not anticoagulants) long- term use, Elevated sed rate * VITAMIN D 25-HYDROXY(Performed 12/04/2024) Performed for Psoriatic arthritis (HCC), Immunosuppressed status (HCC), Vitamin D deficiency, Polyarthralgia, High risk medications (not anticoagulants) long- term use, Elevated sed rate * QUANTIFERON TB-GOLD(Performed 12/04/2024) Performed for Psoriatic arthritis (HCC), Immunosuppressed status (HCC), Vitamin D deficiency, Polyarthralgia, High risk medications (not anticoagulants) long- term use, Elevated sed rate * ERYTHROCYTE SEDIMENTATION RATE(Performed 12/04/2024) Performed for Psoriatic arthritis (HCC), Immunosuppressed status (HCC), Vitamin D deficiency, Polyarthralgia, High risk medications (not anticoagulants) long- term use, Elevated sed rate * C-REACTIVE PROTEIN(Performed 12/04/2024) Performed for Psoriatic arthritis (HCC), Immunosuppressed status (HCC), Vitamin D deficiency, Polyarthralgia, High risk medications (not anticoagulants) long- term use, Elevated sed rate * COMPREHENSIVE METABOLIC PANEL(Performed 12/04/2024) Performed for Psoriatic arthritis (HCC), Immunosuppressed status (HCC), Vitamin D deficiency, Polyarthralgia, High risk medications (not anticoagulants) long- term use, Elevated sed rate * ERYTHROCYTE SEDIMENTATION RATE(Performed 08/01/2024) Performed for Psoriatic arthritis (HCC), Immunosuppressed status (HCC), Polyarthralgia, High risk medications (not anticoagulants) long-term use, Vitamin D deficiency * C-REACTIVE PROTEIN(Performed 08/01/2024) Performed for Psoriatic arthritis (HCC), Immunosuppressed status (HCC), Polyarthralgia, High risk medications (not anticoagulants) long-term use, Vitamin D deficiency * COMPREHENSIVE METABOLIC PANEL(Performed 08/01/2024) Performed for Psoriatic arthritis (HCC), Immunosuppressed status (HCC), Polyarthralgia, High risk medications (not anticoagulants) long-term use, Vitamin D deficiency * CBC W AUTO DIFFERENTIAL(Performed 08/01/2024) Performed for Psoriatic arthritis (HCC), Immunosuppressed status (HCC), Polyarthralgia, High risk medications (not anticoagulants) long-term use, Vitamin D deficiency * T3 FREE(Performed 03/28/2024) * TSH(Performed 03/28/2024) * T4 FREE(Performed 03/28/2024) * COMPREHENSIVE METABOLIC PANEL(Performed 03/28/2024) * C-REACTIVE PROTEIN(Performed 03/28/2024) * ERYTHROCYTE SEDIMENTATION RATE(Performed 03/28/2024) * VITAMIN D 25-HYDROXY(Performed 03/28/2024) * CBC W AUTO DIFFERENTIAL(Performed 03/28/2024) * INTERPRETATION REFLEXED(Performed 11/28/2023) Performed for Psoriatic arthritis (HCC), Immunosuppressed status (HCC), Polyarthralgia, Elevated sed rate, High risk medications (not anticoagulants) long-term use, Vitamin D deficiency * HEPATITIS SCREEN ACUTE ([facility])(Performed 11/28/2023) Performed for Psoriatic arthritis (HCC), Immunosuppressed status (HCC), Polyarthralgia, Elevated sed rate, High risk medications (not anticoagulants) long-term use, Vitamin D deficiency * QUANTIFERON TB-GOLD(Performed 11/28/2023) Performed for Psoriatic arthritis (HCC), Immunosuppressed status (HCC), Polyarthralgia, Elevated sed rate, High risk medications (not anticoagulants) long-term use, Vitamin D deficiency * VITAMIN D 25-HYDROXY(Performed 11/28/2023) Performed for Psoriatic arthritis (HCC), Immunosuppressed status (HCC), Polyarthralgia, Elevated sed rate, High risk medications (not anticoagulants) long-term use, Vitamin D deficiency * ERYTHROCYTE SEDIMENTATION RATE(Performed 11/28/2023) Performed for Psoriatic arthritis (HCC), Immunosuppressed status (HCC), Polyarthralgia, Elevated sed rate, High risk medications (not anticoagulants) long-term use, Vitamin D deficiency * C-REACTIVE PROTEIN(Performed 11/28/2023) Performed for Psoriatic arthritis (HCC), Immunosuppressed status (HCC), Polyarthralgia, Elevated sed rate, High risk medications (not anticoagulants) long-term use, Vitamin D deficiency * COMPREHENSIVE METABOLIC PANEL(Performed 11/28/2023) Performed for Psoriatic arthritis (HCC), Immunosuppressed status (HCC), Polyarthralgia, Elevated sed rate, High risk medications (not anticoagulants) long-term use, Vitamin D deficiency * CBC W AUTO DIFFERENTIAL(Performed 11/28/2023) Performed for Psoriatic arthritis (HCC), Immunosuppressed status (HCC), Polyarthralgia, Elevated sed rate, High risk medications (not anticoagulants) long-term use, Vitamin D deficiency * MAMMO BILAT SCREENING W AZUCENA(Performed 08/17/2023) Performed for Encounter for screening mammogram for malignant neoplasm of breast * XR PELVIS 1 OR 2VW(Performed 08/14/2023) Performed for Fall, initial encounter * XR CHEST 1VW PORTABLE(Performed 08/14/2023) Performed for Fall, initial encounter * CT CERVICAL SPINE WO CONTRAST(Performed 08/14/2023) Performed for Fall, initial encounter * CT FACIAL BONES WO CONTRAST(Performed 08/14/2023) Performed for Fall, initial encounter * CT HEAD WO CONTRAST(Performed 08/14/2023) Performed for Fall, initial encounter * CBC W AUTO DIFFERENTIAL(Performed 07/24/2023) Performed for Psoriatic arthritis (HCC), Vitamin D deficiency, Polyarthralgia, Elevated sed rate, High risk medications (not anticoagulants) long-term use, Immunosuppressed status (HCC) * VITAMIN D 25-HYDROXY(Performed 07/24/2023) Performed for Psoriatic arthritis (HCC), Vitamin D deficiency, Polyarthralgia, Elevated sed rate, High risk medications (not anticoagulants) long-term use, Immunosuppressed status (HCC) * ERYTHROCYTE SEDIMENTATION RATE(Performed 07/24/2023) Performed for Psoriatic arthritis (HCC), Vitamin D deficiency, Polyarthralgia, Elevated sed rate, High risk medications (not anticoagulants) long-term use, Immunosuppressed status (HCC) * C-REACTIVE PROTEIN(Performed 07/24/2023) Performed for Psoriatic arthritis (HCC), Vitamin D deficiency, Polyarthralgia, Elevated sed rate, High risk medications (not anticoagulants) long-term use, Immunosuppressed status (HCC) * COMPREHENSIVE METABOLIC PANEL(Performed 07/24/2023) Performed for Psoriatic arthritis (HCC), Vitamin D deficiency, Polyarthralgia, Elevated sed rate, High risk medications (not anticoagulants) long-term use, Immunosuppressed status (HCC) * CARDIAC EKG ORDER(Performed 06/23/2023) * B-TYPE NATRIURETIC PEPTIDE(Performed 06/21/2023) * TROPONIN I(Performed 06/21/2023) * COMPREHENSIVE METABOLIC PANEL(Performed 06/21/2023) * CBC W AUTO DIFFERENTIAL(Performed 06/21/2023) * EKG 12-LEAD(Performed 06/21/2023) Performed for Leg swelling * VAS BILATERAL VENOUS DUPLEX LE(Performed 06/21/2023) Performed for Leg swelling * XR CHEST 1VW(Performed 06/21/2023) Performed for Leg swelling * INTERPRETATION REFLEXED(Performed 09/07/2022) Performed for Psoriatic arthritis (HCC), Polyarthralgia, Elevated sed rate, High risk medications (not anticoagulants) long-term use, Immunosuppressed status (HCC), Vitamin D deficiency * HEPATITIS SCREEN ACUTE ([facility])(Performed 09/07/2022) Performed for Psoriatic arthritis (HCC), Polyarthralgia, Elevated sed rate, High risk medications (not anticoagulants) long-term use, Immunosuppressed status (HCC), Vitamin D deficiency * QUANTIFERON TB-GOLD(Performed 09/07/2022) Performed for Psoriatic arthritis (HCC), Polyarthralgia, Elevated sed rate, High risk medications (not anticoagulants) long-term use, Immunosuppressed status (HCC), Vitamin D deficiency * VITAMIN D 25-HYDROXY(Performed 09/07/2022) Performed for Psoriatic arthritis (HCC), Polyarthralgia, Elevated sed rate, High risk medications (not anticoagulants) long-term use, Immunosuppressed status (HCC), Vitamin D deficiency * ERYTHROCYTE SEDIMENTATION RATE(Performed 09/07/2022) Performed for Psoriatic arthritis (HCC), Polyarthralgia, Elevated sed rate, High risk medications (not anticoagulants) long-term use, Immunosuppressed status (HCC), Vitamin D deficiency * C-REACTIVE PROTEIN(Performed 09/07/2022) Performed for Psoriatic arthritis (HCC), Polyarthralgia, Elevated sed rate, High risk medications (not anticoagulants) long-term use, Immunosuppressed status (HCC), Vitamin D deficiency * COMPREHENSIVE METABOLIC PANEL(Performed 09/07/2022) Performed for Psoriatic arthritis (HCC), Polyarthralgia, Elevated sed rate, High risk medications (not anticoagulants) long-term use, Immunosuppressed status (HCC), Vitamin D deficiency * CBC W AUTO DIFFERENTIAL(Performed 09/07/2022) Performed for Psoriatic arthritis (HCC), Polyarthralgia, Elevated sed rate, High risk medications (not anticoagulants) long-term use, Immunosuppressed status (HCC), Vitamin D deficiency * US BREAST LEFT LTD(Performed 09/07/2022) Performed for Abnormal mammogram * MAMMO LEFT DIAGNOSTIC W AZUCENA(Performed 09/07/2022) Performed for Abnormal mammogram * MAMMO BILAT SCREENING W AZUCENA(Performed 08/16/2022) Performed for Encounter for screening mammogram for malignant neoplasm of breast * PROCALCITONIN LEVEL(Performed 07/03/2022) * LACTIC ACID BLOOD REFLEX TO REPEAT(Performed 07/03/2022) * CULTURE BLOOD(Performed 07/03/2022) * SARS-COV-2 (COVID-19) RAPID(Performed 07/03/2022) * COMPREHENSIVE METABOLIC PANEL(Performed 07/03/2022) * CBC W AUTO DIFFERENTIAL(Performed 07/03/2022) * HIV-1 HIV-2 ANTIBODY + HIV P24 AG PANEL(Performed 07/03/2022) * CULTURE BLOOD(Performed 07/03/2022) * VITAMIN D 25-HYDROXY(Performed 05/12/2022) Performed for Psoriatic arthritis (HCC), Polyarthralgia, Vitamin D deficiency, Elevated sed rate, High risk medications (not anticoagulants) long-term use, Immunosuppressed status (HCC) * ERYTHROCYTE SEDIMENTATION RATE(Performed 05/12/2022) Performed for Psoriatic arthritis (HCC), Polyarthralgia, Vitamin D deficiency, Elevated sed rate, High risk medications (not anticoagulants) long-term use, Immunosuppressed status (HCC) * C-REACTIVE PROTEIN(Performed 05/12/2022) Performed for Psoriatic arthritis (HCC), Polyarthralgia, Vitamin D deficiency, Elevated sed rate, High risk medications (not anticoagulants) long-term use, Immunosuppressed status (HCC) * COMPREHENSIVE METABOLIC PANEL(Performed 05/12/2022) Performed for Psoriatic arthritis (HCC), Polyarthralgia, Vitamin D deficiency, Elevated sed rate, High risk medications (not anticoagulants) long-term use, Immunosuppressed status (HCC) * CBC W AUTO DIFFERENTIAL(Performed 05/12/2022) Performed for Psoriatic arthritis (HCC), Polyarthralgia, Vitamin D deficiency, Elevated sed rate, High risk medications (not anticoagulants) long-term use, Immunosuppressed status (HCC) * HELICOBACTER PYLORI UREA BREATH TEST(Performed 05/02/2022) Performed for H. pylori infection * PATHOLOGY TISSUE EXAM ([facility])(Performed 04/05/2022) Performed for Diagnosis deferred * HCG BLOOD QUALITATIVE(Performed 04/05/2022) Performed for Preop examination * [place] ED EGD FLEX TRANSORAL DX(Performed 04/05/2022) * COLONOSCOPY SCREEN(Performed 04/05/2022) * EGD(Performed 04/05/2022) * ENDOSCOPY, COLON, SCREENING(Performed 04/05/2022) * LIPASE BLOOD(Performed 03/30/2022) Performed for Pain of upper abdomen * IRON + TIBC + FERRITIN(Performed 03/30/2022) Performed for Anemia, unspecified type * ERYTHROCYTE SEDIMENTATION RATE(Performed 01/26/2022) Performed for Psoriatic arthritis (HCC), Polyarthralgia, Elevated sed rate, Vitamin D deficiency, High risk medications (not anticoagulants) long-term use, Immunosuppressed status (HCC) * C-REACTIVE PROTEIN(Performed 01/26/2022) Performed for Psoriatic arthritis (HCC), Polyarthralgia, Elevated sed rate, Vitamin D deficiency, High risk medications (not anticoagulants) long-term use, Immunosuppressed status (HCC) * COMPREHENSIVE METABOLIC PANEL(Performed 01/26/2022) Performed for Psoriatic arthritis (HCC), Polyarthralgia, Elevated sed rate, Vitamin D deficiency, High risk medications (not anticoagulants) long-term use, Immunosuppressed status (HCC) * CBC W AUTO DIFFERENTIAL(Performed 01/26/2022) Performed for Psoriatic arthritis (HCC), Polyarthralgia, Elevated sed rate, Vitamin D deficiency, High risk medications (not anticoagulants) long-term use, Immunosuppressed status (HCC) * XR PELVIS W BILAT HIP 2VW(Performed 09/07/2021) Performed for Polyarthralgia, Elevated sed rate, Vitamin D deficiency * XR SI JOINTS 3VW OR MORE(Performed 09/07/2021) Performed for Polyarthralgia, Elevated sed rate, Vitamin D deficiency * XR HAND BILAT 1VW(Performed 09/07/2021) Performed for Polyarthralgia, Elevated sed rate, Vitamin D deficiency * COMPLEMENT C3 C4 PANEL(Performed 09/07/2021) Performed for Polyarthralgia, Elevated sed rate, Vitamin D deficiency * SIMEON PANEL COMPREHENSIVE(Performed 09/07/2021) Performed for Polyarthralgia, Elevated sed rate, Vitamin D deficiency * QUANTIFERON TB-GOLD(Performed 09/07/2021) Performed for Polyarthralgia, Elevated sed rate, Vitamin D deficiency * RHEUMATOID ARTHRITIS PANEL(Performed 09/07/2021) Performed for Polyarthralgia, Elevated sed rate, Vitamin D deficiency * HEPATITIS SCREEN ACUTE(Performed 09/07/2021) Performed for Polyarthralgia, Elevated sed rate, Vitamin D deficiency * VITAMIN D 25-HYDROXY(Performed 09/07/2021) Performed for Polyarthralgia, Elevated sed rate, Vitamin D deficiency * ERYTHROCYTE SEDIMENTATION RATE(Performed 09/07/2021) Performed for Polyarthralgia, Elevated sed rate, Vitamin D deficiency * C-REACTIVE PROTEIN(Performed 09/07/2021) Performed for Polyarthralgia, Elevated sed rate, Vitamin D deficiency * COMPREHENSIVE METABOLIC PANEL(Performed 09/07/2021) Performed for Polyarthralgia, Elevated sed rate, Vitamin D deficiency * CK BLOOD(Performed 09/07/2021) Performed for Polyarthralgia, Elevated sed rate, Vitamin D deficiency * CBC W AUTO DIFFERENTIAL(Performed 09/07/2021) Performed for Polyarthralgia, Elevated sed rate, Vitamin D deficiency * US BREAST BILATERAL LTD(Performed 06/22/2021) Performed for Bilateral nipple discharge * MAMMO BILAT DIAGNOSTIC(Performed 06/22/2021) Performed for Bilateral nipple discharge * XR LUMBAR SPINE 4VW OR MORE(Performed 06/10/2021) Performed for Lumbar facet arthropathy, Lumbar facet joint pain * XR LUMBAR SPINE 4VW OR MORE(Performed 08/05/2020) Performed for Fall, initial encounter * XR WRIST LEFT 3VW OR MORE(Performed 08/05/2020) Performed for Fall, initial encounter * XR FINGERS RIGHT 2VW OR MORE(Performed 08/05/2020) Performed for Fall, initial encounter * XR KNEE LEFT 4VW OR MORE(Performed 08/06/2017) Performed for Acute pain of left knee * URIC ACID BLOOD(Performed 07/23/2017) * ERYTHROCYTE SEDIMENTATION RATE(Performed 07/23/2017) * COMPREHENSIVE METABOLIC PANEL(Performed 07/23/2017) * CBC W AUTO DIFFERENTIAL(Performed 07/23/2017) * XR KNEE LEFT 4VW OR MORE(Performed 07/23/2017) Performed for Acute pain of left knee * CARDIAC RHYTHM STRIP ORDER(Performed 12/19/2016) * CARDIAC EKG ORDER(Performed 12/19/2016) * TROPONIN I(Performed 12/18/2016) Performed for Headache, unspecified headache type * LIPID PROFILE(Performed 12/18/2016) * TROPONIN I(Performed 12/17/2016) * URINE MICROSCOPIC ONLY REFLEX TO CULTURE(Performed 12/17/2016) * URINALYSIS REFLEX MICROSCOPIC REFLEX CULTURE(Performed 12/17/2016) * CULTURE URINE(Performed 12/17/2016) * PT EVAL AND TREAT(Performed 12/17/2016) * ED CRITICAL CARE(Performed 12/17/2016) Performed for Headache, unspecified headache type * CT ANGIO BRAIN AND NECK(Performed 12/17/2016) Performed for Headache, unspecified headache type * CT HEAD WO CONTRAST(Performed 12/17/2016) Performed for Headache, unspecified headache type * XR CHEST 1VW PORTABLE(Performed 12/17/2016) Performed for Headache, unspecified headache type * HEMOGLOBIN A1C(Performed 12/17/2016) * HCG BLOOD QUALITATIVE(Performed 12/17/2016) * PT-INR(Performed 12/17/2016) * TROPONIN I(Performed 12/17/2016) * COMPREHENSIVE METABOLIC PANEL(Performed 12/17/2016) * CBC W AUTO DIFFERENTIAL(Performed 12/17/2016) * EKG 12-LEAD(Performed 12/17/2016) Performed for Headache, unspecified headache type * URINALYSIS REFLEX TO MICROSCOPIC NO CULTURE(Performed 09/05/2014) * EKG 12-LEAD(Performed 09/04/2014) Performed for HTN (hypertension) * TROPONIN I(Performed 09/04/2014) * COMPREHENSIVE METABOLIC PANEL(Performed 09/04/2014) * CBC W AUTO DIFFERENTIAL(Performed 09/04/2014) * US BREAST BILATERAL COMPLETE(Performed 04/01/2014) Performed for Abnormal mammogram, Breast pain * MAMMO BILAT DIAGNOSTIC(Performed 04/01/2014) Performed for Other screening mammogram * MAMMO BILAT SCREENING(Performed 01/31/2014) Performed for Other screening mammogram * CULTURE STREP GROUP A(Performed 04/24/2011) * XR CHEST 2VW(Performed 07/29/2010) Performed for Cough Results * XR Lumbar Spine 4Vw or More (12/18/2024 10:17 AM [employer]) Only the most recent of3 resultswithin the time period is included. Anatomical Region Laterality Modality Spine Computed Radiogr aphy 12/18/2024 2:34 PM [employer] Impressions 12/18/2024 3:17 PM [employer] IMPRESSION: No acute osseous abnormality. Edited by Tracey Hodges on 12/18/2024 2:51 PM > Interpreting Provider: Deshaun Bella MD on 12/18/2024 3:17 PM Narrative 12/18/2024 3:17 PM [employer] PROCEDURE: XR LUMBAR SPINE 4VW OR MORE [...] HEPATITIS SCREEN ACUTE ([facility]) (12/04/2024 1:06 PM [employer]) Only the most recent of3 resultswithin the time period is included. Hepatitis A Virus Antibody IgM Negative Negative [facility] ACCOUNT BILL Comment: A negative anti-HAV IgM result suggests no recent or current HAV infection. Hepatitis B Virus Surface Antigen Negative Negative [facility] ACCOUNT BILL Hepatitis B Core Virus Antibody IgM Negative Negative [facility] ACCOUNT BILL Hepatitis C Antibody Non Reactive Non Reactive [facility] ACCOUNT BILL Comment: Performed at: - [facility] [address] [id number] [employer]: Asa Perdomo PhD, Phone: [phone] Interpretation Comment [facility] ACCOUNT BILL Comment: Not infected with HCV unless early or acute infection is suspected (which may be delayed in an immunocompromised individual), or other evidence exists to indicate HCV infection. Blood BLOOD SPECIMEN / Unknown 12/04/2024 1:06 PM [employer] 12/04/2024 Narrative [facility] ACCOUNT BILL - 12/05/2024 7:09 AM [employer] Performed at: - [facility] [address] [id number] [employer]: Asa Perdomo PhD, Phone: [phone] Lilibeth Smith MD LAB - CHEMISTRY ROBERTH STEPHENSON [facility] ACCOUNT BILL [address] [place] [address] * (ABNORMAL) CBC WITH DIFFERENTIAL (12/04/2024 1:06 PM [employer]) Only the most recent of14 resultswithin the time period is included. WBC 6.3 3.4 - 10.8 x10E3/uL [facility] [...] BLOOD SPECIMEN / Unknown 12/04/2024 1:06 PM [employer] 12/04/2024 Narrative [facility] ACCOUNT BILL - 12/05/2024 6:10 AM [employer] Performed at: 01 - [address] [id number] [employer]: Asa Perdomo PhD, Phone: [phone] Lilibeth Smith MD LAB - HEMATOLOGY ORD ERABLES [facility] ACCOUNT BILL [address] [place] [address] * C-REACTIVE PROTEIN (12/04/2024 1:05 PM [employer]) Only the most recent of9 resultswithin the time period is included. C-Reactive Protein 2 0 - 10 mg/L [facility] ACCOUNT BILL Blood BLOOD SPECIMEN / Unknown 12/04/2024 1:05 PM SUPERVISOR PRODUCTION MANAGING 12/04/2024 Narrative [facility] ACCOUNT BILL - 12/05/2024 7:09 AM SUPERVISOR PRODUCTION MANAGING Performed at: - [facility] [address] [id number] [employer] Coxswain: Asa Perdomo PhD, Phone: [phone] Lilibeth Smith MD LAB - CHEMISTRY ORDKarina STEPHENSON Performing Organization Address City/[facility] Co de Phone Number [facility] ACCOUNT BILL [address] [place] [address] * VITAMIN D 25-HYDROXY (12/04/2024 1:05 PM SUPERVISOR PRODUCTION MANAGING) Only the most recent of7 resultswithin the time period is included. Vitamin D, 25 Hydroxy 37.3 30.0 - 100.0 ng/mL [facility] ACCOUNT BILL Comment: Vitamin D deficiency has been defined by the [place] of [employer] and an Endocrine Society practice guideline as a level of serum 25-OH vitamin D less than 20 ng/mL (1,2). The Endocrine Society went on to further define vitamin D insufficiency as a level between 21 and 29 ng/mL (2). 1. IOM ([place] of [employer]). 2010. Dietary reference intakes for calcium and D. [place]: The National Academies Press. 2. Gunjan MF, Kam QUIGLEY, Huy BELLO, et al. Evaluation, treatment, and prevention of vitamin D deficiency: an Endocrine Society clinical practice guideline. JCEM. 2010; 96(7):1911-30. Blood BLOOD SPECIMEN / Unknown 12/04/2024 1:05 PM SUPERVISOR PRODUCTION MANAGING 12/04/2024 Narrative [facility] ACCOUNT BILL - 12/05/2024 8:13 AM SUPERVISOR PRODUCTION MANAGING Performed at: [address] [place] [id number] [employer] Coxswain: Asa Perdomo PhD, Phone: [phone] Lilibeth Smith MD LAB - CHEMISTRY ROBERTH Lopez Organization Address City/State/ZIP Co de Phone Number [facility] ACCOUNT BILL [address] [place] [address] * QUANTIFERON TB-GOLD (12/04/2024 1:05 PM SUPERVISOR PRODUCTION MANAGING) Only the most recent of4 resultswithin the time period is included. [facility] QuantiFERON Incubation Incubation performed. [facility] ACCOUNT BILL QuantiFERON-TB Gold Plus Negative Negative [facility] ACCOUNT BILL Comment: No response to M tuberculosis antigens detected. Infection with M tuberculosis is unlikely, but high risk individuals should be considered for additional testing (ATS/IDSA/CDC Clinical Practice Guidelines, 2017). The reference range is an Antigen minus Nil result of <0.35 IU/mL. Chemiluminescence immunoassay methodology Performed at: [address] [place] [id number] [employer] Coxswain: Asa Perdomo PhD, Phone: [phone] QuantiFERON Criteria Comment [facility] ACCOUNT BILL Comment: [...] BLOOD SPECIMEN / Unknown 12/04/2024 1:05 PM SUPERVISOR PRODUCTION MANAGING 12/04/2024 Narrative [facility] ACCOUNT BILL - 12/06/2024 7:07 PM SUPERVISOR PRODUCTION MANAGING Performed at: 01 - [facility] [place] [address] [place] [id number] [employer] Coxswain: Asa Perdomo PhD, Phone: [phone] Lilibeth Smith MD LAB - CHEMISTRY ORDE RABLES Performing Organization Address [facility] Co de Phone Number [facility] ACCOUNT BILL [address] [place] [address] * ERYTHROCYTE SEDIMENTATION RATE (12/04/2024 1:05 PM SUPERVISOR PRODUCTION MANAGING) Only the most recent of10 resultswithin the time period is included. Erythrocyte Sedimentation Rate Westergren 23 0 - 40 mm/hr [facility] ACCOUNT BILL Blood BLOOD SPECIMEN / Unknown 12/04/2024 1:05 PM SUPERVISOR PRODUCTION MANAGING 12/04/2024 Narrative [facility] ACCOUNT BILL - 12/05/2024 7:09 AM SUPERVISOR PRODUCTION MANAGING Performed at: - [facility] [address] [id number] [employer] Cox[employer]ain: Asa Perdomo PhD, Phone: [phone] Lilibeth Smith MD LAB - HEMATOLOGY ORD ERABLES Performing Organization Address [facility] de Phone Number [facility] ACCOUNT BILL [address] [place] [address] * (ABNORMAL) COMPREHENSIVE METABOLIC PANEL (12/04/2024 1:05 PM SUPERVISOR PRODUCTION MANAGING) Only the most recent of14 resultswithin the time period is included. Glucose 139(H) 70 - 99 mg/dL [facility] [...] BLOOD SPECIMEN / Unknown 12/04/2024 1:05 PM SUPERVISOR PRODUCTION MANAGING 12/04/2024 Narrative [facility] ACCOUNT BILL - 12/05/2024 7:09 AM SUPERVISOR PRODUCTION MANAGING Performed at: [address] [id number] [employer] Coxswain: Asa Perdomo PhD, Phone: [phone] Lilibeth Smith MD LAB - CHEMISTRY ROBERTH STEPHENSON Performing Organization Address City/[facility] Co de Phone Number [facility] ACCOUNT BILL [address] [place] [address] * T3 FREE (03/28/2024 4:17 PM CDT) T3 Free 3.4 2.0 - 4.4 pg/mL [facility] ACCOUNT BILL 03/28/2024 4:17 PM CDT 03/28/2024 Narrative Resulting Agency Comment Lab Testing performed at: [facility] [place] [id number] [facility] [id number] Lilibeth Smith MD LAB - CHEMISTRY ROBERTH STEPHENSON Performing Organization Address City/[facility]/ZIP Co de Phone Number [facility] ACCOUNT BILL [address] [place] [address] * TSH (03/28/2024 4:17 PM CDT) TSH 2.080 0.450 - 4.500 uIU/mL [facility] ACCOUNT BILL 03/28/2024 4:17 PM CDT 03/28/2024 Narrative Resulting Agency Comment Lab Testing performed at: [facility] [place] [address] [facility] [id number] Lilibeth Smith MD LAB - CHEMISTRY ORDE RABCHIQUITA Performing Organization Address City/[facility]/ZIP Co de Phone Number [facility] ACCOUNT BILL [address] [place] [address] * T4 FREE (03/28/2024 4:17 PM CDT) T4 Free 1.05 0.82 - 1.77 ng/dL [facility] ACCOUNT BILL 03/28/2024 4:17 PM CDT 03/28/2024 Narrative Resulting Agency Comment Lab Testing performed at: [facility] [place] [address] [facility] [id number] Lilibeth Smith MD LAB - CHEMISTRY ORDE SEEMA Performing Organization Address [facility] Co de Phone Number [facility] ACCOUNT BILL [address] [place] [address] * INTERPRETATION REFLEXED (11/28/2023 12:58 PM SUPERVISOR PRODUCTION MANAGING) Only the most recent of2 resultswithin the time period is included. Interpretation [facility] ACCOUNT BILL Comment: Not infected with HCV unless early or acute infection is suspected (which may be delayed in an immunocompromised individual), or other evidence exists to indicate HCV infection. 11/28/2023 12:5 8 PM SUPERVISOR PRODUCTION MANAGING 11/28/2023 Narrative Resulting Agency Comment Lab Testing performed at: [facility] [place] [address] [facility] [id number] Lilibeth Smith MD LAB - SEROLOGY ORDER ELIDA Performing Organization Address City/[facility]/ZIP Co de Phone Number [facility] ACCOUNT BILL [address] [place] [address] * MAMMO BILAT SCREENING W AZUCENA (08/17/2023 2:49 PM CDT) Only the most recent of2 resultswithin the time period is included. Anatomical Region Laterality Modality Breast Bilateral Mammography [...] cyst in the left breast. Melisa Marvin CALENDER MACHINE OPERATOR HELPER-HEALTH DATA ANALYST MAMMO ORDERABLES * XR CHEST 1VW PORTABLE (08/14/2023 8:43 AM CDT) Only the most recent of2 resultswithin the time period is included. Anatomical Region Laterality Modality Chest Radiographic Tiara ging 08/14/2023 8:47 AM CDT Impressions 08/14/2023 8:47 AM CDT Impression: No acute disease. > Interpreting Provider: Blaine May MD on 08/14/2023 8:47 AM Narrative 08/14/2023 8:47 AM CDT Portable Chest AP History: Fall. Chest pain. COMPARISON: June 21, 2023. FINDINGS: The lungs are clear without airspace consolidation or pulmonary edema. No pneumothorax or pleural effusion is seen. The cardiomediastinal contour is unremarkable. Procedure Note Blaine May MD - 08/14/2023 Portable Chest AP History: Fall. Chest pain. COMPARISON: June 21, 2023. FINDINGS: The lungs are clear without airspace consolidation orpulmonary edema. No pneumothorax or pleural effusion is seen. Thecardiomediastinal contour is unremarkable. Impression: No acute disease. > Interpreting Provider: Blaine May MD on 08/14/2023 8:47 AM Suhaib Chito Ased DO DIAGNOSTIC IMAGING ORDERABLES * XR PELVIS 1 OR 2VW (08/14/2023 8:43 AM CDT) Anatomical Region Laterality Modality Pelvis Radiographic Tiara ging 08/14/2023 9:02 AM CDT Narrative 08/14/2023 9:02 AM CDT Pelvis AP INDICATION: Pelvic pain. FINDINGS: No fracture or malalignment is seen. > Interpreting Provider: Blaine May MD on 08/14/2023 9:02 AM Procedure Note Blaine May MD - 08/14/2023 Pelvis AP INDICATION: Pelvic pain. FINDINGS: No fracture or malalignment is seen. > Interpreting Provider: Blaine May MD on 08/14/2023 9:02 AM Suhaib Chito Ased DO DIAGNOSTIC IMAGING ORDERABLES * CT CERVICAL SPINE WO CONTRAST (08/14/2023 8:15 AM CDT) Anatomical Region Laterality Modality Spine Computed Tomogra phy 08/14/2023 8:34 AM CDT Impressions 08/14/2023 8:35 AM CDT Impression: No visible fracture. > Interpreting Provider: Deshaun Goodman DO on 08/14/2023 8:35 AM Narrative 08/14/2023 8:[address] Cervical Spine Without Contrast Indication: Neck Pain, Trauma Comparison: December 17, 2016 Technique: Multiple axial CT images of the cervical spine were obtained along with coronal and sagittal multiplanar reformats. Radiation dose reduction technique was utilized. Findings: The lung apices are clear. The vertebral body alignment is preserved. No prevertebral soft tissue swelling is seen. No fracture is visible. Mild degenerative changes are noted in the lower cervical spine. Procedure Note Deshaun Goodman DO - 08/14/2023 CT Cervical Spine Without Contrast Indication: Neck Pain, Trauma Comparison: December 17, 2016 Technique: Multiple axial CT images of the cervical spine were obtained along with coronal and sagittal multiplanar reformats. Radiation dose reduction technique was utilized. Findings: The lung apices are clear. The vertebral body alignment is preserved. No prevertebral soft tissue swelling is seen. No fracture is visible. Mild degenerative changes are noted in the lower cervical spine. Impression: No visible fracture. > Interpreting Provider: Deshaun Goodman DO on 08/14/2023 8:35 AM Suhaib Chito Ased DO CT ORDERABLES * CT SINUS FACIAL BONES NON CONTRAST (08/14/2023 8:14 AM CDT) Anatomical Region Laterality Modality Head Computed Tomogra phy 08/14/2023 8:19 AM CDT Narrative 08/14/2023 8:22 AM CDT Examination: CT facial bones. Indication for examination: Facial trauma with facial pain and swelling. An emergency noncontrast CT examination of the facial bones is performed with thin section helical technique in axial projection with additional coronal reconstructions. No discrete acute facial bone fracture is identified. Margins of the orbits appear intact. There is no deep soft tissue edema. Paranasal sinuses are well aerated. CONCLUSION: No discrete acute facial bone fracture identified. > Interpreting Provider: Blaine Best MD on 08/14/2023 8:22 AM Procedure Note Blaine Best MD - 08/14/2023 Examination: CT facial bones. Indication for examination: Facial trauma with facial pain and swelling. An emergency noncontrast CT examination of the facial bones is performed with thin section helical technique in axial projection with additional coronal reconstructions. No discrete acute facial bone fracture is identified. Margins of theorbits appear intact. There is no deep soft tissue edema. Paranasal sinuses are well aerated. CONCLUSION: No discrete acute facial bone fracture identified. > Interpreting Provider: Blaine Best MD on 08/14/2023 8:22 AM Suhaib Chito Ased DO CT ORDERABLES * CT HEAD WO CONTRAST (08/14/2023 7:58 AM CDT) Only the most recent of2 resultswithin the time period is included. Anatomical Region Laterality Modality Head Computed Tomogra phy 08/14/2023 8:17 AM CDT Narrative 08/14/2023 8:19 AM CDT Examination: Noncontrast CT brain. Indication for examination: Trauma, head injury with head pain. An emergency noncontrast CT examination of the brain is performed with 5 mm helical technique. Viz AI postprocessing was employed for hemorrhage detection. Comparison is made with a prior study of December 17, 2016. No acute intracranial hemorrhage is identified. There is no mass lesion or fluid collection. No focal parenchymal abnormality is observed. Ventricles and subarachnoid pathways are normal in size and configuration. Paranasal sinuses are well aerated. CONCLUSION: No acute intracranial abnormality identified. > Interpreting Provider: Blaine Best MD on 08/14/2023 8:19 AM Procedure Note Blaine Best MD - 08/14/2023 Examination: Noncontrast CT brain. Indication for examination: Trauma, head injury with head pain. An emergency noncontrast CT examination of the brain is performed with 5mm helical technique. Viz AI postprocessing was employed for hemorrhage detection. Comparison is made with a prior study of December 17, 2016. No acute intracranial hemorrhage is identified. There is no mass lesionor fluid collection. No focal parenchymal abnormality is observed.Ventricles and subarachnoid pathways are normal in size and configuration.Paranasal sinuses are well aerated. CONCLUSION: No acute intracranial abnormality identified. > Interpreting Provider: Blaine Best MD on 08/14/2023 8:19 AM Celine Dale Ased DO CT ORDERABLES * CARDIAC EKG ORDER (06/23/2023 3:26 AM CDT) Only the most recent of2 resultswithin the time period is included. Narrative 06/23/2023 3:26 AM CDT Ordered by an unspecified provider. Scanned Document CARDIAC SERVICES ORD ERABLES * TROPONIN I (06/21/2023 3:04 PM CDT) Only the most recent of5 resultswithin the time period is included. Troponin I <0.010 <0.038 ng/mL 06/21/2023 3:49 PM CDT [facility] Blood BLOOD SPECIMEN / Unknown Venipuncture / Unknown 06/21/2023 3:04 PM CDT 06/21/2023 3:20 PM CDT Melyssa Kimball PA-C LAB - CHEMISTRY ORD ERABLES Performing Organization Address [facility] Co de Phone Number [facility] [address] [place] [address] * B-TYPE NATRIURETIC PEPTIDE (06/21/2023 3:04 PM CDT) Pathologist [facility] BNP <10 <=100 pg/mL 06/21/2023 3:50 PM CDT [facility] Blood BLOOD SPECIMEN / Unknown Venipuncture / Unknown 06/21/2023 3:04 PM CDT 06/21/2023 3:20 PM CDT Melyssa Kimball PA-C LAB - CHEMISTRY ORD ERABLES Performing Organization Address [facility] Co de Phone Number [facility] [address] [place] [address] * EKG 12-LEAD (06/21/2023 2:54 PM CDT) Only the most recent of3 resultswithin the time period is included. Pathologist [facility] Ventricular Rate 85 BPM [facility] Atrial Rate 85 BPM [facility] P-R Interval 178 ms [facility] QRS Duration ms 88 ms [facility] Q-T Interval ms 396 ms [facility] QTC Calculation (Bezet) 471 ms [facility] Calculated P [place] 57 degrees [facility] Calculated R [place] 47 degrees [facility] Calculated T [place] 59 degrees [facility] Interpretation EKG Normal sinus rhythm Normal ECG When compared with ECG of 17-DEC-2016 01:33, No significant change was found Confirmed by JOSE UREÑA, BRIGETTE FRASER ([id number]) on 06/22/2023 11:10:58 PM [facility] 06/21/2023 2:54 PM CDT 06/22/2023 11:10 PM CDT Melyssa Kimball PA-C ECG ORDERABLES [facility] * VAS BILATERAL VENOUS DUPLEX LE (06/21/2023 2:52 PM CDT) Anatomical Region Laterality Modality Lower Extremity Ultrasound 06/21/2023 2:15 PM CDT Narrative Procedure Note Lorne Malagon MD - 06/22/2023 [facility] [address] [place] [address] Lower Extremity Venous Ultrasound Report Pat.Name: GHADA BARRERA Pat.ID: [id number] .Date: 06/21/2023 Refer.MD: Melyssa Kimball Exam Time: 2:15:00 PM Study Type:LE Venous Age: 807/10/1970,52Y Sex: FEMALE Sonogrphr: Kristi Mccoy RVT Pat. Stat.:Inpatient ICD - 9: M79.89 CPT - 4: 39259 Reason for Study: Swelling -Leg, bilateral Procedures: Lower Extremity Venous - Bilateral Visit ID: [id number] ++++++++++++++++++++++++++++++++++++ SUMMARY: ++++++++++++++++++++++++++++++++++++ There is no evidence of an acute deep or superficial venous thrombosis in either the right or left lower extremity. ++++++++++++++++++++++++++++++++++++ FINDINGS: ++++++++++++++++++++++++++++++++++++ Procedure: Venous duplex imaging of both lower extremities was performed using color flow and spectral Doppler analysis. Study Quality: This study is of adequate technical quality. Bilateral: All vessels seen appear patent and compressible. There was spontaneous and phasic flow seen in all the proximal major veins of both lower extremities. Appropriate augmentation with distal compression. Signed 06/22/2023 09:45 AM Lorne Malagon MD Melyssa Kimball PA-C VASCULAR LAB ORDERA BLES * XR CHEST PA OR AP (1VW ONLY, THIS IS NOT PORTABLE) (06/21/2023 1:31 PM CDT) Anatomical Region Laterality Modality Chest Radiographic Tiara ging 06/21/2023 1:36 PM CDT Impressions 06/21/2023 1:37 PM CDT IMPRESSION: No acute cardiopulmonary abnormalities. > Interpreting Provider: Deshaun Goodman DO on 06/21/2023 1:37 PM Narrative 06/21/2023 1:37 PM CDT PROCEDURE: XR CHEST 1VW DATE/TIME OF EXAM: 06/21/2023 1:31 PM CLINICAL INFORMATION: Hypertension, leg swelling. Indication: M79.89: Other specified soft tissue disorders Additional History: COMPARISON: December 17, 2016. FINDINGS: Single frontal view of the chest demonstrates a normal sized heart and pulmonary vasculature. No focal consolidation, pleural effusion or pneumothorax. No acute osseous abnormalities. Procedure Note Deshaun Goodman DO - 06/21/2023 PROCEDURE: XR CHEST 1VW DATE/TIME OF EXAM: 06/21/2023 1:31 PM CLINICAL INFORMATION: Hypertension, leg swelling. Indication: M79.89: Other specified soft tissue disorders Additional History: COMPARISON: December 17, 2016. FINDINGS: Single frontal view of the chest demonstrates a normal sized heart and pulmonary vasculature. No focal consolidation, pleural effusion or pneumothorax. No acute osseous abnormalities. IMPRESSION: No acute cardiopulmonary abnormalities. > Interpreting Provider: Deshaun Goodman DO on 06/21/2023 1:37 PM Melyssa Kimball PA-C DIAGNOSTIC IMAGING ORDERABLES * US BREAST LEFT LTD (09/07/2022 3:28 PM CDT) Anatomical Region Laterality Modality Breast Left Ultrasound 09/07/2022 3:48 PM CDT Impressions 09/07/2022 3:50 PM CDT IMPRESSION:There is a benign cyst in the inferior central left breast as described above. These results have been discussed with the patient by Dr. Jigna Mcbride. OVERALL FINAL ASSESSMENT: BI-RADS Category 2: Benign. Annual screening mammography is recommended. > Interpreting Provider: Jigna Mcbride MD on 09/07/2022 3:50 PM Narrative 09/07/2022 3:50 PM CDT EXAMINATION: DIGITAL MAMMO LEFT DIAGNOSTIC W AZUCENA, US BREAST LEFT LTD DATE: 09/07/2022 HISTORY: EXAMINATION: LEFT DIGITAL DIAGNOSTIC MAMMOGRAM INCLUDING CAD AND LEFT DIGITAL BREAST TOMOSYNTHESIS; LEFT BREAST SONOGRAM HISTORY: Abnormal screening mammogram. Recent screening mammogram showed a 14 mm mass in the posterior central left breast. COMPARISON: 08/16/2022 TECHNIQUE: Full field digital mammographic views of the left breast were performed, including computer aided detection (CAD) and LEFT digital breast tomosynthesis (DBT). Directed ultrasound evaluation of the left breast was performed. BREAST PARENCHYMAL COMPOSITION: The breasts are heterogenously dense, which may obscure small masses. MAMMOGRAM FINDINGS: Additional views reveal persistence of the 14 mm mass in the central inferior left breast. Targeted ultrasound examination will also be performed. LEFT BREAST SONOGRAM FINDINGS: Directed exam in the 5:30 position 6 cm from nipple reveals an oval anechoic 11 mm avascular mass which correlates well with the mammographic finding. Melisa Marvin APRN-HEALTH DATA ANALYST US ORDERABLES * MAMMO LEFT DIAGNOSTIC W AZUCENA (09/07/2022 3:10 PM CDT) Anatomical Region Laterality Modality Breast Left Mammography 09/07/2022 3:48 PM CDT Impressions 09/07/2022 3:50 PM CDT IMPRESSION:There is a benign cyst in the inferior central left breast as described above. These results have been discussed with the patient by Dr. Jigna Mcbride. OVERALL FINAL ASSESSMENT: BI-RADS Category 2: Benign. Annual screening mammography is recommended. > Interpreting Provider: Jigna Mcbride MD on 09/07/2022 3:50 PM Narrative 09/07/2022 3:50 PM CDT EXAMINATION: DIGITAL MAMMO LEFT DIAGNOSTIC W AZUCENA, US BREAST LEFT LTD DATE: 09/07/2022 HISTORY: EXAMINATION: LEFT DIGITAL DIAGNOSTIC MAMMOGRAM INCLUDING CAD AND LEFT DIGITAL BREAST TOMOSYNTHESIS; LEFT BREAST SONOGRAM HISTORY: Abnormal screening mammogram. Recent screening mammogram showed a 14 mm mass in the posterior central left breast. COMPARISON: 08/16/2022 TECHNIQUE: Full field digital mammographic views of the left breast were performed, including computer aided detection (CAD) and LEFT digital breast tomosynthesis (DBT). Directed ultrasound evaluation of the left breast was performed. BREAST PARENCHYMAL COMPOSITION: The breasts are heterogenously dense, which may obscure small masses. MAMMOGRAM FINDINGS: Additional views reveal persistence of the 14 mm mass in the central inferior left breast. Targeted ultrasound examination will also be performed. LEFT BREAST SONOGRAM FINDINGS: Directed exam in the 5:30 position 6 cm from nipple reveals an oval anechoic 11 mm avascular mass which correlates well with the mammographic finding. Melisa Marvin APRN-HEALTH DATA ANALYST MAMMO ORDERABLES * LACTIC ACID BLOOD REFLEX TO REPEAT (07/03/2022 11:43 PM CDT) Lactic Acid 1.62 <=2 mmol/L 07/04/2022 12:14 AM CDT [facility] Blood BLOOD SPECIMEN / Unknown Venipuncture / Unknown 07/03/2022 11:43 PM CDT 07/03/2022 11:53 PM CDT Duran Fuller DO LAB - CHEMISTRY ROBERTH STEPHENSON [facility] [address] [place] [address] * (ABNORMAL) PROCALCITONIN LEVEL (07/03/2022 11:43 PM CDT) Procalcitonin 0.11(H) <0.10 ng/mL 07/04/2022 12:38 AM CDT [facility] Blood BLOOD SPECIMEN / Unknown Venipuncture / Unknown 07/03/2022 11:43 PM CDT 07/03/2022 11:56 PM CDT Narrative [facility] - 07/04/2022 12:38 AM CDT The change in procalcitonin (PCT) concentration over time provides support in decision making on antibiotic discontinuation for suspected or confirmed septic patients. Follow-up samples should be tested once every 1-2 days based upon physician discretion taking into account the patient s evolution and progress. Consider discontinuation of antibiotic therapy if the PCT current is <= 0.5 ng/mL or if the delta PCT is > 80%. Duration of antibiotics should not be determined solely on PCT; established guidelines for the indication should be followed. PCT peak: Highest observed PCT concentration PCT current: Most recent PCT concentration Calculate delta PCT using the following equation: Delta PCT = PCT Peak PCT current X 100% PCT Peak The Change in Procalcitonin Calculator is available at [email or web address] If clinical picture has not improved and PCT remains high, reevaluate and consider treatment failure or other causes. Duran Fuller LAB - CHEMISTRY ROBERTH STEPHENSON Performing Organization Address City/[facility] Co de Phone Number [facility] [address] [place] [address] * CULTURE BLOOD (07/03/2022 11:43 PM CDT) Only the most recent of2 resultswithin the time period is included. [facility] Culture No growth day 5 JEFF 07/09/2022 2:03 AM CDT [facility] MICROBIOLOGY Blood PERIPHERAL BLOOD / Unknown Venipuncture / Unknown 07/03/2022 11:43 PM CDT 07/03/2022 11:57 PM CDT [facility] - MICRO[facility]OLOGY O RDERABLES [facility] MICROBIOLOGY [address] [place] [id number] [place] [address] * SARS-COV-2 (COVID-19) RAPID (07/03/2022 11:38 PM CDT) [facility] COVID-19 PCR Not detected Not detected 07/04/20 12:37 AM CDT [facility] Microbiology SPECIMEN FROM NASOPHARYNGEAL STRUCTURE / Unknown Collection / Unknown 07/03/2022 11:38 PM CDT 07/03/2022 11:53 PM CDT Narrative [facility] - 07/04/2022 12:37 AM CDT The Cepheid Xpert Xpress SARS-COV-2 has been authorized by the Food and Drug Administration (FDA) under an Emergency Use Authorization (EUA). This test has been validated in accordance with the FDA's guidance document Policy for Diagnostic Testing in Laboratories Certified to perform High Complexity Testing under CLIA prior to Emergency Use Authorization for Coronavirus Disease-2019 during the Public Health Emergency issued on January 25, 2020. FDA independent review of this validation is pending. This test is only authorized for the duration of the time the declaration that circumstances exist justifying the authorization of emergency use of in vitro diagnostic tests for detection of SARS-COV-2 virus and/or diagnosis of COVID-19 infection under 564(b) (1) of the Act. 21 U.S.C. 360bbb-3 (b) (1), unless the authorization is terminated or revoked sooner. Fact Sheets for this EUA assay are available upon request. Lizette Mazariegos MD LAB - MICROBIOLOGY O RDERABLES Performing Organization Address [facility] Co de Phone Number [facility]ATRIC LABORATORY [address] [place] [address] * HIV-1 HIV-2 ANTIBODY + HIV P24 AG PANEL (07/03/2022 11:37 PM CDT) [facility] HIV1/2 Ab + P24 Ag Non Reactive Non Reactive 07/04/2022 12:37 AM CDT [facility] Blood BLOOD SPECIMEN / Unknown Venipuncture / Unknown 07/03/2022 11:37 PM CDT 07/03/2022 11:56 PM CDT Narrative [facility] - 07/04/2022 12:37 AM CDT No Laboratory evidence of HIV infection. Lizette Mazariegos MD LAB - CHEMISTRY ROBERTH STEPHENSON Performing Organization Address City/[facility]/ZIP Co de Phone Number PS[facility]IATRIC LABORATORY [address] [place], [place] [id number] * HELICOBACTER PYLORI UREA BREATH TEST (05/02/2022 8:11 AM CDT) Helicobacter pylori Breath Negative Negative [facility] INSURANCE BILL Comment:FASTING Microbiology BREATH / Unknown 05/02/2022 8:11 AM CDT 05/02/2022 Narrative Resulting Agency Comment Lab Testing performed at: [facility] [place] [address] [facility] [id number] Shira Hogan MD LAB - MICROBIOLOGY O RDERABLES [facility] INSURANCE BILL [address] [place] [address] * PATHOLOGY TISSUE EXAM (STL) (04/05/2022 9:41 AM CDT) Case Report Surgical Pathology Report Case: [id number] Authorizing Provider: Shira Hogan MD Collected: 04/05/2022 09:41 AM Ordering Location: [facility] Received: 04/05/2022 11:14 AM Pathologist: Mariza Bangura MD Specimens: A) - Duodenal Biopsy B) - Antrum/Gastric Biopsy C) - Esophageal Biopsy, distal esophagus D) - Polyp Sigmoid, cold x1 04/07/2022 8:49 AM CDT [facility] Final Diagnosis A. Duodenum, biopsy: -- Active duodenitis and foveolar metaplasia -- No dysplasia or malignancy B. Stomach, biopsy: -- Oxyntic and antral-type gastric mucosa with chronic active gastritis -- No dysplasia or malignancy C. Esophagus, distal, biopsy: -- Squamocolumnar mucosa with nonspecific chronic inflammation -- No intestinal metaplasia, dysplasia, or malignancy D. Sigmoid colon polyp, biopsy: -- Hyperplastic polyp 04/07/2022 8:49 AM CDT [facility] Addendum 1 A Helicobacter pylor i immunostain performed on block B1 is positive for organisms. 04/07/2022 8:49 AM CDT [facility] Addendum electronically signed by Mariza Bangura MD on 04/07/2022 at 8:49 AM Clinical History The patient is a 51-year-old woman with a 3 mm polyp in the sigmoid colon, duodenal erosion, and a variable Z-line. 04/07/2022 8:49 AM CDT [facility] Gross Description Received in formalin labeled with patient's name and duodenal biopsy are 3 fragments of almaguer soft tissue measuring 2 mm each. Submitted entirely cassette A1. Received in formalin labeled with patient's name and gastric antrum biopsy are 4 fragments of almaguer soft tissue measuring 3 x 3 x 1 mm in aggregate. Submitted entirely cassette B1. Received in formalin labeled with patient's name and distal esophagus 2 fragments of almaguer soft tissue. One fragment measures 1 mm. The other fragment measures 3 mm. Submitted entirely in cassette C1. Received in formalin labeled with patient's name and sigmoid polyp is 1 fragment of almaguer tissue measuring 2 mm. Submitted entirely cassette D1. 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 In addition, there is focal, mild intraepithelial acute inflammation, which is a nonspecific finding and could be secondary to medications or infection. There is no evidence of dysplasia or malignancy. A Helicobacter pylori immunostain will be performed on block B1 and the result will be reported in an addendum. 04/07/2022 8:49 AM CDT [facility] Disclaimer All histochemical and/or immunohistochemical results are interpreted with controls that demonstrate appropriate staining reactions before reporting results. Note on use of immunocytochemistry reagents: This test was developed and its performance characteristic determined by [facility], Department of Laboratory Medicine. It has not been cleared or approved by the U.S. Food and Drug Administration (FDA). The FDA has determined that such clearance or approval is not necessary. The test is used for clinical purpose. It should not be regarded as investigational or for research. This laboratory is certified to perform high complexity testing. The performance characteristics of the IHC/WEN assays have been validated on formalin-fixed paraffin embedded tissues only. The assays have not been validated on decalcified tissues. Results should be interpreted with caution. 04/07/2022 8:49 AM CDT [facility] Embedded Images 04/07/2022 8:49 AM CDT [facility] Pathology/Cytology DUODENAL BIOPSY SPECIMEN / Unknown 04/05/2022 9:41 AM CDT 04/05/2022 11:14 AM CDT Miscellaneous samples (specimen) GASTRIC ANTRAL BIOPSY SPECIMEN / Unknown 04/05/2022 9:41 AM CDT 04/05/2022 11:14 AM CDT Miscellaneous samples (specimen) ESOPHAGEAL BIOPSY SPECIMEN / Unknown 04/05/2022 9:41 AM CDT 04/05/2022 11:14 AM CDT Miscellaneous samples (specimen) POLYP OF SIGMOID COLON / Unknown 04/05/2022 10:08 AM CDT 04/05/2022 11:14 AM CDT Shira Hogan MD LAB - PATHOLOGY/CYTO LOGY ORDERABLES Performing Organization Address [facility] Co de Phone Number PSYCHIATRIC LABORATORY [id number] [place] [address] * HCG BLOOD QUALITATIVE (04/05/2022 9:07 AM CDT) Only the most recent of2 resultswithin the time period is included. HCG Qual Serum Negative Negative 04/05/2022 9:27 AM CDT [facility] Blood BLOOD SPECIMEN / Unknown Venipuncture / Unknown 04/05/2022 9:07 AM CDT 04/05/2022 9:11 AM CDT Shira Hogan MD LAB - CHEMISTRY ORDE RABLES Performing Organization Address [facility] Co de Phone Number [facility]AT[facility] LAB[facility]ATORY [address] [place] [address] * EGD (04/05/2022 8:45 AM CDT) Report Endoscopy POC __ _ Patient Name: Ghada Barrera Procedure Date: 04/05/2022 8:45 AM Date of : 1970 Admit Type: Outpatient Age: 51 Gender: Female Attending MD: Shira Hogan MD __ _ Procedure: Upper GI endoscopy Indications: Abdominal pain, Unexplained iron deficiency anemia, Dysphagia, Suspected gastro-esophageal reflux disease Providers: Shira Hogan MD (Doctor) Referring MD: Ivet Tejeda MD (Referring MD) Medicines: Monitored Anesthesia Care Complications: No immediate complications. __ _ Estimated Blood Loss: Estimated blood loss: [...] satisfactory condition to undergo the procedure. After obtaining informed consent, the endoscope was passed under direct vision. Throughout the procedure, the patient's blood pressure, pulse, and oxygen saturations were monitored continuously. The Endoscope was introduced through the mouth, and advanced to the second part of duodenum. The upper GI endoscopy was accomplished without difficulty. The patient tolerated the procedure well. Findings: The examined esophagus was normal. The Z-line was variable and was found 35 cm from the incisors. Biopsies were taken with a cold forceps for histology. The gastroesophageal flap valve was visualized endoscopically and classified as Hill Grade I (prominent fold, tight to endoscope). The entire examined stomach was normal. Biopsies were taken with a cold forceps for histology. A single localized erosion without bleeding was found in the duodenal bulb. Biopsies were taken with a cold forceps for histology of the bulb and second portion. The exam of the duodenum was otherwise normal. __ _ Impression: - Normal esophagus. - Z-line variable, 35 cm from the incisors. Biopsied. - Gastroesophageal flap valve classified as Hill Grade I (prominent fold, tight to endoscope). - Normal stomach. Biopsied. - Duodenal erosion without bleeding. Biopsied. Recommendation: - Await pathology results. Procedure Code(s): --- Professional --- 34391, Esophagogastroduode noscopy, flexible, transoral; with biopsy, single or multiple --- Technical --- 82408, Esophagogastroduode noscopy, flexible, transoral; with biopsy, single or multiple Diagnosis Code(s): --- Professional --- K22.8, Other specified diseases of esophagus K26.9, Duodenal ulcer, unspecified as acute or chronic, without hemorrhage or perforation R10.9, Unspecified abdominal pain D50.9, Iron deficiency anemia, unspecified R13.10, Dysphagia, unspecified --- Technical --- K22.8, Other specified diseases of esophagus K26.9, Duodenal ulcer, unspecified as acute or chronic, without hemorrhage or perforation R10.9, Unspecified abdominal pain D50.9, Iron deficiency anemia, unspecified R13.10, Dysphagia, unspecified CPT copyright 2019 [employer]. All rights reserved. The codes documented in this report are preliminary and upon information coder review may be revised to meet current compliance requirements. Shira Hogan MD 04/05/2022 10:17:23 AM Number of Addenda: 0 Note Initiated On: 04/05/2022 8:45 AM PSYCHIATRIC ENDOSCOPY 04/05/2022 8:45 AM CDT Shira Hogan MD GI PROCEDURE ORDERAB LES [facility] [address] [place] [id number] * ENDOSCOPY, COLON, SCREENING (04/05/2022 8:43 AM CDT) Report Endoscopy POC _ Patient Name: Ghada Barrera Procedure Date: 04/05/2022 8:43 AM Date of [...] bowel preparation was evaluated using the BBPS ([place] Bowel Preparation Scale) with scores of: Right [...] for surveillance. Procedure Code(s): --- Professional --- 89160, Colonoscopy, flexible; with biopsy, single or multiple --- Technical --- 50736, Colonoscopy, flexible; with biopsy, single or multiple Diagnosis Code(s): --- Professional --- Z12.11, Encounter for screening for malignant neoplasm of colon K63.5, Polyp of colon --- Technical --- Z12.11, Encounter for screening for malignant neoplasm of colon K63.5, Polyp of colon CPT copyright 2019 [employer]. All rights reserved. The codes documented in this report are preliminary and upon information coder review may be revised to meet current compliance requirements. __ Shira Hogan MD 04/05/2022 10:22:06 AM Number of Addenda: 0 Note Initiated On: 04/05/2022 8:43 AM PSYCHIATRIC ENDOSCOPY 04/05/2022 8:43 AM CDT Shira Hogan MD GI PROCEDURE ORDERAB LES [place] [address] * (ABNORMAL) IRON + TIBC + FERRITIN (03/30/2022 2:51 PM CDT) TIBC 457(H) 250 - 450 ug/dL [facility] INSURANCE BILL UIBC 424 131 - 425 ug/dL [facility] INSURANCE BILL Iron 33 27 - 159 ug/dL [facility] INSURANCE BILL Iron Saturation 7(LL) 15 - 55 % [facility] INSURANCE BILL Ferritin 6(L) 15 - 150 ng/mL [facility] INSURANCE BILL Blood BLOOD SPECIMEN / Unknown 03/30/2022 2:51 PM CDT 03/30/2022 Narrative Resulting Agency Comment Lab Testing performed at: [place] [id number] [facility] [id number] Pavithra Bacon CALENDER MACHINE OPERATOR HELPER-HEALTH DATA ANALYST LAB - CHEMISTR Y ORDERABLES [facility] INSURANCE BILL [address] [place] [address] * LIPASE BLOOD (03/30/2022 2:51 PM CDT) Lipase 41 14 - 72 U/L [facility] INSURANCE BILL Blood BLOOD SPECIMEN / Unknown 03/30/2022 2:51 PM CDT 03/30/2022 Narrative Resulting Agency Comment Lab Testing performed at: [place] [id number] [facility] [id number] Pavithra Bacon CALENDER MACHINE OPERATOR HELPER-HEALTH DATA ANALYST LAB - CHEMISTR Y ORDERABLES [facility] [address] [place] [address] * XR HAND BILAT 1VW (09/07/2021 2:13 PM CDT) Anatomical Region Laterality Modality Wrist / Hand, Upper Extremity Ra diographic Imaging 09/07/2021 3:32 PM CDT Narrative 09/07/2021 3:33 PM CDT SINGLE AP VIEW RIGHT HAND SINGLE AP VIEW LEFT HAND INDICATION: Bilateral hand pain FINDINGS: Single AP view right hand shows no fracture, dislocation or osseous destruction. There is mild joint space narrowing and hypertrophic spurring at the basilar joint and at the interphalangeal joint of the thumb. Single AP view left hand shows no fracture, dislocation or osseous destruction. There is mild joint space narrowing and hypertrophic spurring at the basilar joint and at the interphalangeal joint of the thumb. *Reading Radiologist: Jairo Wright on 09/07/2021 at 3:33 PM Procedure Note Jairo Wright MD - 09/07/2021 SINGLE AP VIEW RIGHT HAND SINGLE AP VIEW LEFT HAND INDICATION: Bilateral hand pain FINDINGS: Single AP view right hand shows no fracture, dislocation or osseous destruction. There is mild joint space narrowing and hypertrophic spurring at the basilar joint and at the interphalangeal joint of the thumb. Single AP view left hand shows no fracture, dislocation or osseous destruction. There is mild joint space narrowing and hypertrophic spurring at the basilar joint and at the interphalangeal joint of the thumb. *Reading Radiologist: Jairo Wright on 09/07/2021 at 3:33 PM Lilibeth Smith MD DIAGNOSTIC IMAGING O RDERABLES * XR PELVIS W BILAT HIP 2VW (09/07/2021 2:13 PM CDT) Anatomical Region Laterality Modality Pelvis, Lower Extremity Radiogra phic Imaging 09/07/2021 2:37 PM CDT Impressions 09/07/2021 2:39 PM CDT Minimal hip arthroses. Mild right inferior SI joint arthrosis. The primary finding is lower lumbar facet arthrosis. *Reading Radiologist: Jorgito Stevens on 09/07/2021 at 2:39 PM Narrative 09/07/2021 2:39 PM CDT Sacroiliac joints 3 more views AP pelvis, two-view bilateral hip HISTORY: Buttock pain hip pain FINDINGS: No comparison. Facet arthropathy L4-5 and L5-S1. Both sacroiliac joints are open. Sclerotic changes right sacroiliac joint. No ankylosis across either SI joint. No pars defects. AP pelvis: The anterior bony pelvic girdle is intact. Right hip: The femoral head is smooth. The femoral neck is smooth. Minimal spurring off the inferior aspect of the right femoral head Left: The femoral head is smooth. The femoral neck is smooth. Minimal spurring at the inferior aspect of left femoral head. Procedure Note Jorgito Stevens MD - 09/07/2021 Sacroiliac joints 3 more views AP pelvis, two-view bilateral hip HISTORY: Buttock pain hip pain FINDINGS: No comparison. Facet arthropathy L4-5 and L5-S1. Both sacroiliac joints are open. Sclerotic changes right sacroiliac joint. No ankylosis across either SI joint. No pars defects. AP pelvis: The anterior bony pelvic girdle is intact. Right hip: The femoral head is smooth. The femoral neck is smooth. Minimal spurring off the inferior aspect of the right femoral head Left: The femoral head is smooth. The femoral neck is smooth. Minimal spurring at the inferior aspect of left femoral head. IMPRESSION Minimal hip arthroses. Mild right inferior SI joint arthrosis. The primary finding is lower lumbar facet arthrosis. *Reading Radiologist: Jorgito Stevens on 09/07/2021 at 2:39 PM Lilibeth Smith MD DIAGNOSTIC IMAGING O RDERABLES * XR SI JOINTS 3VW OR MORE (09/07/2021 2:13 PM CDT) Anatomical Region Laterality Modality Pelvis, Lower Extremity Radiogra phic Imaging 09/07/2021 2:37 PM CDT Impressions 09/07/2021 2:39 PM CDT Minimal hip arthroses. Mild right inferior SI joint arthrosis. The primary finding is lower lumbar facet arthrosis. *Reading Radiologist: Jorgito Stevens on 09/07/2021 at 2:39 PM Narrative 09/07/2021 2:39 PM CDT Sacroiliac joints 3 more views AP pelvis, two-view bilateral hip HISTORY: Buttock pain hip pain FINDINGS: No comparison. Facet arthropathy L4-5 and L5-S1. Both sacroiliac joints are open. Sclerotic changes right sacroiliac joint. No ankylosis across either SI joint. No pars defects. AP pelvis: The anterior bony pelvic girdle is intact. Right hip: The femoral head is smooth. The femoral neck is smooth. Minimal spurring off the inferior aspect of the right femoral head Left: The femoral head is smooth. The femoral neck is smooth. Minimal spurring at the inferior aspect of left femoral head. Procedure Note Jorgito Stevens MD - 09/07/2021 Sacroiliac joints 3 more views AP pelvis, two-view bilateral hip HISTORY: Buttock pain hip pain FINDINGS: No comparison. Facet arthropathy L4-5 and L5-S1. Both sacroiliac joints are open. Sclerotic changes right sacroiliac joint. No ankylosis across either SI joint. No pars defects. AP pelvis: The anterior bony pelvic girdle is intact. Right hip: The femoral head is smooth. The femoral neck is smooth. Minimal spurring off the inferior aspect of the right femoral head Left: The femoral head is smooth. The femoral neck is smooth. Minimal spurring at the inferior aspect of left femoral head. IMPRESSION Minimal hip arthroses. Mild right inferior SI joint arthrosis. The primary finding is lower lumbar facet arthrosis. *Reading Radiologist: Jorgito Stevens on 09/07/2021 at 2:39 PM Lilibeth Smith MD DIAGNOSTIC IMAGING O RDERABLES * SIMEON PANEL COMPREHENSIVE (09/07/2021 1:44 PM CDT) Anti-dsDNA Quantitative 1 0 - 9 IU/mL [facility] INSURANCE BILL Comment: Negative <5 Equivocal 5 - 9 Positive >9 PEANUT BUTTER MAKER Antibody 0.2 0.0 - 0.9 AI [facility] INSURANCE BILL Vaz (FAN) Antibody <0.2 0.0 - 0.9 AI [facility] INSURANCE BILL Antiscleroderma-70 Antibody <0.2 0.0 - 0.9 AI [facility] INSURANCE BILL Sjogren's Antibodies (SSA) <0.2 0.0 - 0.9 AI [facility] INSURANCE BILL Sjogren's Antibodies (SSB) <0.2 0.0 - 0.9 AI [facility] INSURANCE BILL Antichromatin Antibodies <0.2 0.0 - 0.9 AI [facility] INSURANCE BILL No-1 Antibody <0.2 0.0 - 0.9 AI [facility] INSURANCE BILL Centromere B Antibody <0.2 0.0 - 0.9 AI [facility] INSURANCE BILL See Below [facility] INSURANCE BILL Comment: Autoantibody Disease Association Condition Frequency --------- Antinuclear Antibody, SLE, mixed connective Direct (SIMEON-D) tissue diseases --------- dsDNA SLE 40 - 60% --------- Chromatin Drug induced SLE 90% SLE 48 - 97% --------- SSA (Ro) SLE 25 - 35% Sjogren's Syndrome 40 - 70% Lupus 100% --------- SSB (La) SLE 10% Sjogren's Syndrome 30% --------- Sm (anti-Vaz) SLE 15 - 30% --------- PEANUT BUTTER MAKER Mixed Connective Tissue Disease 95% (U1 nRNP, SLE 30 - 50% anti-ribonucleoprotein) Polymyositis and/or Dermatomyositis 20% --------- Scl-70 (antiDNA Scleroderma (diffuse) 20 - 35% topoisomerase) Crest 13% --------- No-1 Polymyositis and/or Dermatomyositis 20 - 40% --------- Centromere B Scleroderma - Crest variant 80% Blood BLOOD SPECIMEN / Unknown 09/07/2021 1:44 PM CDT 09/07/2021 Narrative Resulting Agency Comment Lab Testing performed at: [address] [id number] Lilibeth Smith MD LAB - SEROLOGY ORDER ELIDA Performing Organization Address City/[facility] Co de Phone Number [facility] INSURANCE BILL [address] [place] [address] * RHEUMATOID ARTHRITIS PANEL (09/07/2021 1:44 PM CDT) Rheumatoid Factor <10.0 0.0 - 13.9 IU/mL [facility] INSURANCE BILL CCP Antibodies IgG/IgA 11 0 - 19 units [facility] INSURANCE BILL Comment: Negative <20 Weak positive 20 - 39 Moderate positive 40 - 59 Strong positive >59 Blood BLOOD SPECIMEN / Unknown 09/07/2021 1:44 PM CDT 09/07/2021 Narrative Resulting Agency Comment Lab Testing performed at: [address] [id number] Lilibeth Smith MD LAB - SEROLOGY ORDER ELIDA Performing Organization Address [facility] Co de Phone Number [facility] INSURANCE BILL [address] [place] [address] * CK BLOOD (09/07/2021 1:44 PM CDT) CK 148 32 - 182 U/L [facility] INSURANCE BILL Blood BLOOD SPECIMEN / Unknown 09/07/2021 1:44 PM CDT 09/07/2021 Narrative Resulting Agency Comment Lab Testing performed at: [facility] [address] [facility] [id number] Lilibeth Smith MD LAB - CHEMISTRY ROBERTH STEPHENSON Performing Organization Address City/[facility]/ZIP Co de Phone Number [facility] INSURANCE BILL [address] [place] [address] * COMPLEMENT C3 C4 PANEL (09/07/2021 1:44 PM CDT) Complement C3 133 82 - 167 mg/dL [facility] INSURANCE BILL Complement C4 17 12 - 38 mg/dL [facility] INSURANCE BILL Blood BLOOD SPECIMEN / Unknown 09/07/2021 1:44 PM CDT 09/07/2021 Narrative Resulting Agency Comment Lab Testing performed at: [facility] [place] [address] [facility] [id number] Lilibeth Smith MD LAB - CHEMISTRY ROBERTH STEPHENSON Performing Organization Address [facility] Co de Phone Number [facility] INSURANCE BILL [address] [place] [address] * HEPATITIS SCREEN ACUTE (09/07/2021 1:44 PM CDT) Hepatitis A Virus Antibody IgM Negative Negative [facility] INSURANCE BILL Hepatitis B Virus Surface Antigen Negative Negative [facility] INSURANCE BILL Hepatitis B Core Virus Antibody IgM Negative Negative [facility] INSURANCE BILL Hepatitis C Antibody 0.2 0.0 - 0.9 s/co ratio [facility] INSURANCE BILL Comment: Negative: < 0.8 Indeterminate: 0.8 - 0.9 Positive: > 0.9 . The CDC recommends that a positive HCV antibody result be followed up with a HCV Nucleic Acid Amplification test (521557). Blood BLOOD SPECIMEN / Unknown 09/07/2021 1:44 PM CDT 09/07/2021 Narrative Resulting Agency Comment Lab Testing performed at: [facility] [place] [address] [facility] [id number] Lilibeth Smith MD LAB - CHEMISTRY ROBERTH STEPHENSON Performing Organization Address [facility] de Phone Number [facility] INSURANCE BILL [address] [place] [address] * US BREAST BILATERAL LTD (06/22/2021 2:44 PM CDT) Anatomical Region Laterality Modality Breast Bilateral Ultrasound 06/22/2021 2:45 PM CDT Impressions 06/22/2021 2:54 PM CDT No evidence of malignancy OVERALL ASSESSMENT:BI-RADS CATEGORY 2: BENIGN. RECOMMENDATION: Clinical follow-up regarding nonspontaneous bilateral nipple discharge and palpable cyst in the upper outer quadrant of the right breast Patient was given contact information for nurse navigator Elis Malin if she would like to schedule ultrasound-guided cyst aspiration Bilateral screening mammogram in one year Findings and recommendation were discussed with the patient by Dr. Villalba Thank you for allowing us to participate in the care of your patient. [facility] utilizes hereO as a reminder system to notify patients of their next recommended mammogram. *Reading Radiologist: Johanna Villalba on 06/22/2021 at 2:54 PM Narrative 06/22/2021 2:54 PM CDT EXAMINATION: Digital bilateral diagnostic mammogram and limited bilateral ultrasound on 06/22/2021. Low-dose digital breast tomosynthesis examination was performed with 3D acquisitions and synthetic 2D mammogram. Computer assisted detection was utilized. PRIOR: 2013 HISTORY: 50-year-old female presents for diagnostic evaluation of a palpable abnormality in the right upper outer quadrant as well as bilateral nonspontaneous nipple discharge yellow/brown in color BREAST PARENCHYMAL DENSITY:Category D: The breasts are extremely dense, which lowers the sensitivity of mammography. FINDINGS: A marker was placed over the area of clinical concern in the upper outer right breast. There is a partially obscured mass with lobulated margins deep to the marker. In the lower inner quadrant of the right breast there is a small circumscribed oval mass at posterior depth. Limited ultrasound of the subareolar left breast demonstrates mild duct ectasia without intraductal mass or debris. Limited ultrasound of the subareolar right breast, upper outer quadrant and lower inner quadrant was performed. There is subareolar duct ectasia without intraductal mass or debris. Corresponding to the palpable abnormality in the 10:00 position 7 cm from the nipple is an anechoic mass measuring 1.8 cm consistent with a cyst. In the lower inner quadrant 4:00 position 9 cm from the nipple there is a hypoechoic mass with an echogenic center measuring 6 mm most consistent with a benign intramammary lymph node. Melisa Marvin CALENDER MACHINE OPERATOR HELPER-HEALTH DATA ANALYST US ORDERABLES * MAMMO BILAT DIAGNOSTIC (06/22/2021 1:55 PM CDT) Only the most recent of2 resultswithin the time period is included. Anatomical Region Laterality Modality Breast Bilateral Mammography 06/22/2021 2:45 PM CDT Impressions 06/22/2021 2:54 PM CDT No evidence of malignancy OVERALL ASSESSMENT:BI-RADS CATEGORY 2: BENIGN. RECOMMENDATION: Clinical follow-up regarding nonspontaneous bilateral nipple discharge and palpable cyst in the upper outer quadrant of the right breast Patient was given contact information for nurse navigator Elis Malin if she would like to schedule ultrasound-guided cyst aspiration Bilateral screening mammogram in one year Findings and recommendation were discussed with the patient by Dr. Villalba Thank you for allowing us to participate in the care of your patient. [facility] utilizes hereO as a reminder system to notify patients of their next recommended mammogram. *Reading Radiologist: Johanna Villalba on 06/22/2021 at 2:54 PM Narrative 06/22/2021 2:54 PM CDT EXAMINATION: Digital bilateral diagnostic mammogram and limited bilateral ultrasound on 06/22/2021. Low-dose digital breast tomosynthesis examination was performed with 3D acquisitions and synthetic 2D mammogram. Computer assisted detection was utilized. PRIOR: 2013 HISTORY: 50-year-old female presents for diagnostic evaluation of a palpable abnormality in the right upper outer quadrant as well as bilateral nonspontaneous nipple discharge yellow/brown in color BREAST PARENCHYMAL DENSITY:Category D: The breasts are extremely dense, which lowers the sensitivity of mammography. FINDINGS: A marker was placed over the area of clinical concern in the upper outer right breast. There is a partially obscured mass with lobulated margins deep to the marker. In the lower inner quadrant of the right breast there is a small circumscribed oval mass at posterior depth. Limited ultrasound of the subareolar left breast demonstrates mild duct ectasia without intraductal mass or debris. Limited ultrasound of the subareolar right breast, upper outer quadrant and lower inner quadrant was performed. There is subareolar duct ectasia without intraductal mass or debris. Corresponding to the palpable abnormality in the 10:00 position 7 cm from the nipple is an anechoic mass measuring 1.8 cm consistent with a cyst. In the lower inner quadrant 4:00 position 9 cm from the nipple there is a hypoechoic mass with an echogenic center measuring 6 mm most consistent with a benign intramammary lymph node. Melisa Marvin APRN-HEALTH DATA ANALYST MAMMO ORDERABLES * XR WRIST LEFT 3VW OR MORE (08/05/2020 10:48 AM CDT) Anatomical Region Laterality Modality Wrist / Hand Radiographic Tiara ging 08/05/2020 11:0 1 AM CDT Narrative 08/05/2020 11:03 AM CDT 3 views left wrist 3 views right second finger 5 views lumbar spine Clinical indications: Acute left wrist pain, right second finger pain, low back pain. Recent injury. Initial encounter. FINDINGS: Left wrist: Mild hypertrophic arthritic change first carpometacarpal joint. No acute fracture or malalignment. No osseous erosions. Right second finger: Diffuse soft tissue swelling. Anatomic alignment. No acute fracture. No significant degenerative disease. No osseous erosions. Lumbar spine: Anatomic alignment. No acute fracture. Moderate to severe bilateral facet hypertrophy L4-L5 and L5-S1. *Reading Radiologist: Preston Rodriguez on 08/05/2020 at 11:03 AM Procedure Note Preston Rodriguez MD - 08/05/2020 3 views left wrist 3 views right second finger 5 views lumbar spine Clinical indications: Acute left wrist pain, right second finger pain, low back pain. Recent injury. Initial encounter. FINDINGS: Left wrist: Mild hypertrophic arthritic change first carpometacarpal joint. No acute fracture or malalignment. No osseous erosions. Right second finger: Diffuse soft tissue swelling. Anatomic alignment. No acute fracture. No significant degenerative disease. No osseous erosions. Lumbar spine: Anatomic alignment. No acute fracture. Moderate to severe bilateral facet hypertrophy L4-L5 and L5-S1. *Reading Radiologist: Preston Rodriguez on 08/05/2020 at 11:03 AM Irene Payne PA-C DIAGNOSTIC TIARA GING ORDERABLES * XR FINGERS RIGHT 2VW OR MORE (08/05/2020 10:47 AM CDT) Anatomical Region Laterality Modality Upper Extremity, Wrist / Hand Ra diographic Imaging 08/05/2020 11:0 1 AM CDT Narrative 08/05/2020 11:03 AM CDT 3 views left wrist 3 views right second finger 5 views lumbar spine Clinical indications: Acute left wrist pain, right second finger pain, low back pain. Recent injury. Initial encounter. FINDINGS: Left wrist: Mild hypertrophic arthritic change first carpometacarpal joint. No acute fracture or malalignment. No osseous erosions. Right second finger: Diffuse soft tissue swelling. Anatomic alignment. No acute fracture. No significant degenerative disease. No osseous erosions. Lumbar spine: Anatomic alignment. No acute fracture. Moderate to severe bilateral facet hypertrophy L4-L5 and L5-S1. *Reading Radiologist: Preston Rodriguez on 08/05/2020 at 11:03 AM Procedure Note Preston Rodriguez MD - 08/05/2020 3 views left wrist 3 views right second finger 5 views lumbar spine Clinical indications: Acute left wrist pain, right second finger pain, low back pain. Recent injury. Initial encounter. FINDINGS: Left wrist: Mild hypertrophic arthritic change first carpometacarpal joint. No acute fracture or malalignment. No osseous erosions. Right second finger: Diffuse soft tissue swelling. Anatomic alignment. No acute fracture. No significant degenerative disease. No osseous erosions. Lumbar spine: Anatomic alignment. No acute fracture. Moderate to severe bilateral facet hypertrophy L4-L5 and L5-S1. *Reading Radiologist: Preston Rodriguez on 08/05/2020 at 11:03 AM Irene Payne PA-C DIAGNOSTIC TIARA GING ORDERABLES * XR KNEE 4+ VW LEFT (08/06/2017 1:51 PM CDT) Only the most recent of2 resultswithin the time period is included. Anatomical Region Laterality Modality Lower Extremity Radiographic Tiara ging 08/06/2017 1:58 PM CDT Narrative 08/06/2017 1:59 PM CDT Left Knee 4 View INDICATION: Left knee pain FINDINGS: No fracture or dislocation. There is a small to moderate left knee effusion. Mild osteoarthritis is present. Procedure Note Katie James MD - 08/06/2017 Left Knee 4 View INDICATION: Left knee pain FINDINGS: No fracture or dislocation. There is a small to moderate left knee effusion. Mild osteoarthritis is present. Simona Diggs PA-C DIAGNOSTIC IMAGING ORDERABLES * URIC ACID BLOOD (07/23/2017 12:44 PM CDT) Uric Acid 3.9 3.0 - 8.5 mg/dL 07/23/2017 1:15 PM CDT [facility] Blood BLOOD SPECIMEN / Unknown Venipuncture / Unknown 07/23/2017 12:44 PM CDT 07/23/2017 12:50 PM CDT Lonnie Chisholm MD LAB - CHEMISTRY [facility]ER[facility] STEPHENSON Performing Organization Address [facility] Co de Phone Number [facility] [id number] [place] [address] * CARDIAC RHYTHM STRIP ORDER (12/19/2016 6:30 PM [employer]) Narrative 12/19/2016 6:30 PM [employer] Ordered by an unspecified provider. Scanned Document CARDIAC SERVICES ORD ERABLES * LIPID PROFILE (12/18/2016 1:40 AM [employer]) Cholesterol 193 <200 mg/dL 12/18/2016 2:25 AM [employer] [facility] Triglycerides 135 <150 mg/dL 12/18/2016 2:25 AM [facility] HDL Cholesterol 47 >40 mg/dL 7 2:25 AM [employer] [facility] LDL Calculated 119 <130 mg/dL 12/18/2016 2:25 AM [facility] VLDL Calculated 27 <=30 mg/dL 7 2:25 AM [facility] Chol HDL Ratio 4.1 <4.5 12/18/2016 2:25 AM [facility] LDL/HDL Ratio 2.5 <5.0 12/18/2016 2:25 AM [facility] Blood BLOOD SPECIMEN / Unknown 12/18/2016 1:40 AM [employer] 12/18/2016 2:02 AM [employer] Matt Busch DO LAB - CHEMISTRY ORD ERABLES Performing Organization Address [facility]/ZIP Co de Phone Number [facility] [address] [place] [address] * (ABNORMAL) URINALYSIS MICROSCOPIC ONLY W/REFLEX CULTURE (12/17/2016 9:07 AM [employer]) Bacteria UA 4+(A) None Seen 12/17/2016 9:53 AM [employer] [facility] Epithelial Cell UA 2-5 0-2, 2-5 # /hpf 12/17/2016 9:53 AM [employer] [facility] Urine URINE SPECIMEN OBTAINED BY CLEAN CATCH PROCEDURE / Unknown 12/17/2016 9:07 AM [facility] 12/17/2016 9:10 AM [facility] Matt Busch DO LAB - URINALYSIS OR DERABLES [facility] [id number] [place] [address] * (ABNORMAL) URINALYSIS ROUTINE W/REFLEX TO CULTURE (12/17/2016 9:07 AM [facility]) Color UA Yellow Straw, Yellow, Dark Yellow 12/17/2016 9:29 AM [facility] Clarity UA Clear 12/17/2016 9:29 AM [facility] Specific [place] UA >1.030(H) 1.005 - 1.030 12/17/2016 9:29 AM [facility] pH UA 5.5 5.0 - 8.0 pH 12/17/2016 9:29 AM [facility] Protein UA Negative Negative 12/17/2016 9:29 AM [facility] Blood UA 1+(A) Negative 12/17/2016 9:29 AM [facility] Leukocyte UA Negative Negative 12/17/2016 9:29 AM [facility] Nitrite UA Positive(A) Negative 12/17/2016 9:29 AM [facility] Glucose UA Negative Negative 12/17/2016 9:29 AM [facility] Ketone UA Negative Negative 12/17/2016 9:29 AM [facility] Bilirubin UA Negative Negative 12/17/2016 9:29 AM [facility] Urobilinogen UA 0.2 0.1 - 1.0 EU/dL 12/17/2016 9:29 AM [facility] WBC UA Auto 10-20(A) 0-2, 2-5 # /hpf 12/17/2016 9:29 AM [facility] RBC UA Auto 5-10(A) 0-2, 2-5 # /hpf 12/17/2016 9:29 AM [facility] Bacteria UA Auto Reflex to manual(A) None seen 12/17/2016 9:29 AM [facility] Hyaline Casts UA Auto 0-2 0 - 2 #/lpf 12/17/2016 9:29 AM [employer] [facility] Reflex Status Culture to follow 12/17/2016 9:29 AM [employer] [facility] Urine URINE SPECIMEN OBTAINED BY CLEAN CATCH PROCEDURE / Unknown 12/17/2016 9:07 AM [employer] 12/17/2016 9:10 AM [employer] Matt Busch DO LAB - URINALYSIS OR DERABLES Performing Organization Address City/[facility]/ZIP Co de Phone Number [facility] [address] [place] [address] * (ABNORMAL) CULTURE URINE (12/17/2016 9:07 AM [employer]) Culture >100,000 CFU/mL Escherichia coli(A) JEFF 12/19/2016 5:14 AM [employer] [facility] MICROBIOLOGY Urine URINE SPECIMEN OBTAINED BY CLEAN CATCH PROCEDURE / Unknown 12/17/2016 9:07 AM [employer] 12/17/2016 9:10 AM [employer] Narrative Organism Antibiotic Method Susceptibility Escherichia coli Amikacin JEFF 4 ug/mL: Susceptible Escherichia coli Ampicillin JEFF >=32 ug/mL: Resistant Escherichia coli Ampicillin-sulbactam JEFF >=32 ug/mL: Resistant Escherichia coli Cefazolin JEFF <=4 ug/mL: Susceptible Escherichia coli Cefepime JEFF <=1 ug/mL: Susceptible Escherichia coli Ceftriaxone JEFF <=1 ug/mL: Susceptible Escherichia coli Ciprofloxacin JEFF <=0.25 ug/mL: Susceptible Escherichia coli Extended-Spectrum Beta-Lactamase JEFF NEG ug/mL: Neg Escherichia coli Gentamicin JEFF <=1 ug/mL: Susceptible Escherichia coli Meropenem JEFF <=0.25 ug/mL: Susceptible Escherichia coli Nitrofurantoin JEFF <=16 ug/mL: Susceptible Escherichia coli Piperacillin-tazobactam JEFF <=4 ug/mL: Susceptible Escherichia coli Tobramycin JEFF <=1 ug/mL: Susceptible Escherichia coli Trimethoprim-sulfamethoxazole JEFF <=20 ug/mL: Susceptible Matt Busch DO LAB - MICROBIOLOGY ORDERABLES [facility] MICROBIOLOGY [address] [place] [id number] [place] [address] * ED CRITICAL CARE (12/17/2016 6:07 AM SU[employer]) Narrative Matt Busch DO - 12/17/2016 6:07 AM [employer] Matt Busch, 12/17/2016 6:07 AM Critical Care Performed by: MATT BUSCH Authorized by: MATT BUCSH Total critical care time: 46 minutes Critical care time was exclusive of separately billable procedures and treating other patients. Critical care was necessary to treat or prevent imminent or life-threatening deterioration of the following conditions: CLINICAL APPEALS REVIEWER failure or compromise. Critical care was time spent personally by me on the following activities: discussions with consultants, discussions with primary provider, interpretation of cardiac output measurements, evaluation of patient's response to treatment, examination of patient, obtaining history from patient or surrogate, ordering and performing treatments and interventions, ordering and review of laboratory studies, ordering and review of radiographic studies, pulse oximetry, re-evaluation of patient's condition and review of old charts. Matt Busch DO PROCEDURE/MINOR ESTUARDO GICAL ORDERABLES * CT ANGIO NECK HEAD W WO CONTRAST (12/17/2016 3:32 AM [employer]) Anatomical Region Laterality Modality Head Computed Tomogra phy 12/17/2016 3:37 AM [employer] Narrative 12/17/2016 3:[address] [employer] CT angiography neck CT angiography head CT 3D Reconstruction Clinical Indication: Headache dizziness and giddiness. Severe headache radiating down the right side of the neck. Technique: Axial CT images from the transverse aortic arch through the cranial vertex were obtained following the administration of 70 mL Omnipaque 350 intravenous contrast. Multiplanar reformatted, maximum intensity projection, and 3D volume rendered reconstructions of the arterial vasculature of the neck and brain were performed on an independent workstation. An attempt was made to evaluate the vessels using the NASCET criteria. The CTA protocol is not the standard for the evaluation of aneurysms. This report was transcribed with a computerized speech recognition system. In an effort to expedite patient care, it has not been adjusted for typographical, grammatical or syntax problems by a trained medical instructor. For questions about the report, please contact the Radiology Department. Findings: Neck: There is patency of the common carotid, internal carotid, and vertebral arteries. No major vessel occlusion can be identified. . The distal ICA's inferior to the skull base are normal in size. Head: The carotid siphons and the basilar arteries appear patent. No large branch occlusion can be seen. Procedure Note Aquilino Montalvo MD - 12/17/[address] CT 3D Reconstruction Clinical Indication: Headache dizziness and giddiness. Severe headache radiating down the right side of the neck. Technique: Axial CT images from the transverse aortic arch through the cranial vertex were obtained following the administration of 70 mL Omnipaque 350 intravenous contrast. Multiplanar reformatted, maximum intensity projection, and 3D volume rendered reconstructions of the arterial vasculature of the neck and brain were performed on an independent workstation. An attempt was made to evaluate the vessels using the NASCET criteria. The CTA protocol is not the standard for the evaluation of aneurysms. This report was transcribed with a computerized speech recognition system. In an effort to expedite patient care, it has not been adjusted for typographical, grammatical or syntax problems by a trained medical instructor. For questions about the report, please contact the Radiology Department. Findings: Neck: There is patency of the common carotid, internal carotid, and vertebral arteries. No major vessel occlusion can be identified. . The distal ICA's inferior to the skull base are normal in size. Head: The carotid siphons and the basilar arteries appear patent. No large branch occlusion can be seen. Matt Busch DO CT ORDERABLES * HEMOGLOBIN A1C (12/17/2016 1:53 AM [employer]) Pathologist [facility] Hemoglobin A1c 5.1 4.2 - 6.3 % 12/17/2016 3:30 PM [employer] [facility] Estimated Average Glucose 100 mg/dL 12/17/2016 3:30 PM [employer] [facility] Whole Blood BLOOD SPECIMEN WITH EDTA / Unknown 12/17/2016 1:53 AM [employer] 12/17/2016 2:33 PM [employer] Matt Busch DO LAB - CHEMISTRY ORD ERABLES [facility] [address] [place] [address] * PT-INR (12/17/2016 1:53 AM [employer]) Pathologist [facility] PT 10.8 9.5 - 11.6 sec 12/17/2016 2:12 AM [facility] INR 1.1 0.9 - 1.1 12/17/2016 2:12 AM [facility] Blood BLOOD SPECIMEN / Unknown 12/17/2016 1:53 AM [employer] 12/17/2016 1:56 AM [employer] Narrative [facility] - 12/17/2016 2:12 AM [employer] Conventional Warfarin Anticoagulant Therapy: INR Reference Range: 2.0-3.0 Intensive Warfarin Anticoagulant Therapy: INR Reference Range: 2.5-3.5 Matt Busch DO LAB - COAGULATION O RDERABLES [facility] [address] [place] [address] * (ABNORMAL) URINALYSIS ROUTINE AUTO (09/05/2014 2:07 AM CDT) Color UA Yellow Straw, Yellow, Dark Yellow 09/05/2014 2:28 AM CDT [facility] Clarity UA Clear 09/05/2014 2:28 AM CDT [facility] Specific [place] UA 1.008 1.005 - 1.030 09/05/2014 2:28 AM CDT [facility] pH UA 7.0 5.0 - 8.0 pH 09/05/2014 2:28 AM CDT [facility] Protein UA Negative Negative 09/05/2014 2:28 AM CDT [facility] Blood UA Trace(A) Negative 09/05/2014 2:28 AM CDT [facility] Leukocyte UA Negative Negative 09/05/2014 2:28 AM CDT [facility] Nitrite UA Negative Negative 09/05/2014 2:28 AM CDT [facility] Glucose UA Negative Negative 09/05/2014 2:28 AM CDT [facility] Ketone UA Negative Negative 09/05/2014 2:28 AM CDT [facility] Bilirubin UA Negative Negative 09/05/2014 2:28 AM CDT [facility] Urobilinogen UA 0.2 0.1 - 1.0 EU/dL 09/05/2014 2:28 AM CDT [facility] WBC UA Auto 2-5 0-2, 2-5 #/hpf 09/05/2014 2:28 AM CDT [facility] RBC UA Auto 2-5 0-2, 2-5 #/hpf 09/05/2014 2:28 AM CDT [facility] Epithelial Cell UA Auto 5-10(A) 0-2, 2-5 #/hpf 09/05/2014 2:28 AM CDT [facility] Bacteria UA Auto 1+(A) None seen 09/05/2014 2:28 AM CDT [facility] Hyaline Casts UA Auto 2-5(A) 0 - 2 #/lpf 09/05/2014 2:28 AM CDT [facility] Urine URINE SPECIMEN OBTAINED BY CLEAN CATCH PROCEDURE / Unknown 09/05/2014 2:07 AM CDT 09/05/2014 2:11 AM CDT José Miguel Limon MD LAB - URINALYSIS ORD ERABLES [facility] [address] [place] [id number] * US BREAST BILATERAL (04/01/2014 10:52 AM CDT) Anatomical Region Laterality Modality Breast Bilateral Ultrasound 04/01/2014 10:5 2 AM CDT Narrative 04/01/2014 11:48 AM CDT ULTRASOUND BILATERAL BREASTS INDICATION: Right breast pain lateral in upper outer quadrant. Callback from screening for left breast with increased density in upper outer quadrant. TECHNIQUE: Sonographic images of the right breast were obtained in the area of pain at 10:00 with survey imaging performed from 9:00 through 11:00. FINDINGS: There is a group of simple cysts in the right breast at 10:00, 7 cm from the nipple, corresponding with the area of pain. These measure approximately 0.74 x 0.44 cm x 0.50, and 0.77 x 0.37 cm x 0.76 cm. An additional simple cyst at the 9:00 position 9 cm from the nipple measures approximately 0.52 x 0.49 x 0.30 cm. In the upper-outer quadrant of the left breast, no discrete solid or cystic lesion is seen. Imaging was performed from 12:00 through 3:00. BI-RADS 2 RECOMMENDATION: Clinical followup. Continue screening mammography in one year, back on schedule. Edited by Marianna Westfall on 04/01/2014 11:29 AM Procedure Note Baranski, Yari J, MD - 04/01/2014 ULTRASOUND BILATERAL BREASTS INDICATION: Right breast pain lateral in upper outer quadrant. Callback from screening for left breast with increased density in upper outer quadrant. TECHNIQUE: Sonographic images of the right breast were obtained in the area of pain at 10:00 with survey imaging performed from 9:00 through 11:00. FINDINGS: There is a group of simple cysts in the right breast at 10:00, 7 cm from the nipple, corresponding with the area of pain. These measure approximately 0.74 x 0.44 cm x 0.50, and 0.77 x 0.37 cm x 0.76 cm. An additional simple cyst at the 9:00 position 9 cm from the nipple measures approximately 0.52 x 0.49 x 0.30 cm. In the upper-outer quadrant of the left breast, no discrete solid or cystic lesion is seen. Imaging was performed from 12:00 through 3:00. BI-RADS 2 RECOMMENDATION: Clinical followup. Continue screening mammography in one year, back on schedule. Edited by Marianna Westfall on 04/01/2014 11:29 AM Blaine Teresa ORDERABLES * MAMMO SCREENING DIGITAL IMAGE BILAT [id number] (01/31/2014 11:24 AM [employer]) Anatomical Region Laterality Modality Breast Bilateral Mammography 01/31/2014 1:17 PM [employer] Addenda This result is currently undergoing an addendum. Addendum by Corie Proctor MD on 02/10/2014 3:52 PM CDT There are no prior mammograms available for comparison. The density of the breast limits the sensitivity of mammography. There is an area of particularly increased density at the upper outer left breast. Evaluation with spot compression view is recommended. ASSESSMENT: Incomplete (BI-RADS category 0): Need additional imaging evaluation. RECOMMENDATION: Additional views left breast and possible ultrasound. (End of Addendum) Edited by Kaylee Nixon on 02/10/2014 3:47 PM Narrative 01/31/2014 1:51 PM [employer]NA[employer] DIGITAL BILATERAL SCREENING MAMMOGRAMS WITH CAD CORRELATION DATE: 01/31/14 PREVIOUS EXAM DATE: None available at this time. INDICATION: Screening. TECHNIQUE: Bilateral craniocaudad (CC) and mediolateral oblique (MLO) views. The study was interpreted with the aid of CAD. TECHNOLOGIST: Delphine Seymour RT(R)(M) TISSUE DENSITY: Extremely dense. This may lower the sensitivity of mammography. Please correlate with clinical examination. FINDINGS: There is a dense fibronodular glandular pattern. Area of density is particularly notable on the left. Comparison with the old films would be invaluable. ASSESSMENT: BI-RADS Category 0: Incomplete. Additional imaging required. RECOMMENDATIONS: Obtain old films. The above findings should be correlated with physical examination. A relatively nonspecific study should not preclude additional evaluation if suspicious findings are present clinically. An [employer]ified [employer]. [facility] utilize hereO as a reminder system to notify patients of their next recommended mammograms. Edited by Marianna Westfall on 01/31/2014 1:21 PM Procedure Note Corie Proctor MD - 01/31/2014 DIGITAL BILATERAL SCREENING MAMMOGRAMS WITH CAD CORRELATION DATE: 01/31/14 PREVIOUS EXAM DATE: None available at this time. INDICATION: Screening. TECHNIQUE: Bilateral craniocaudad (CC) and mediolateral oblique (MLO) views. The study was interpreted with the aid of CAD. TECHNOLOGIST: Delphine Seymour RT(R)(M) TISSUE DENSITY: Extremely dense. This may lower the sensitivity of mammography. Please correlate with clinical examination. FINDINGS: There is a dense fibronodular glandular pattern. Area of density is particularly notable on the left. Comparison with the old films would be invaluable. ASSESSMENT: BI-RADS Category 0: Incomplete. Additional imaging required. RECOMMENDATIONS: Obtain old films. The above findings should be correlated with physical examination. A relatively nonspecific study should not preclude additional evaluation if suspicious findings are present clinically. An [employer]ified Facility. [facility] utilize hereO as a reminder system to notify patients of their next recommended mammograms. Edited by Marianna Westfall on 01/31/2014 1:21 PM Bl[facility] Teresa MAMMO ORDERABLES * CULTURE STREP GROUP A (04/24/2011 9:00 PM CDT) Result [facility] Comment: Final CULTURE NO growth of beta-hemolytic strep Group A ENTIRE THROAT (SURFACE REGION OF NECK) / Unknown 04/24/2011 9:00 PM CDT 04/24/2011 9:03 PM CDT Narrative Resulting Agency Comment Performed By [facility];[address];[place] [address] Tiffanie John MD LAB - MICROBIOLOGY [facility] [address] [place] [address] * XR CHEST PA AND LATERAL (07/29/2010 4:48 PM CDT) Anatomical Region Laterality Modality Chest Radiographic Tiara ging 07/29/2010 4:58 PM CDT Impressions 07/29/2010 4:58 PM CDT No acute disease in the chest. Narrative 07/29/2010 4:58 PM CDT CHEST - TWO VIEWS INDICATION: Cough COMPARISON: None. FINDINGS: PA and lateral views of the chest show the lungs to be expanded and clear. The heart size is normal. The pulmonary vascularity is within normal limits. Procedure Note Aquilino Montalvo MD - 07/29/2010 CHEST - TWO VIEWS INDICATION: Cough COMPARISON: None. FINDINGS: PA and lateral views of the chest show the lungs to be expanded and clear. The heart size is normal. The pulmonary vascularity is within normal limits. IMPRESSION No acute disease in the chest. [facility] Care Teams Change Over Relationship Specialty Start Date End Date Nasreen Nicholson PA-C [address] [place] [address] PCP - General Physician Calender Machine Operator Helper 12/11/24 Kerry Tejeda MD [address] [place] [address] Internal Medicine 08/05/20 [place] [address] [place] [id number] Orthopedic Surgery 07/26/17
--- OUTSIDE RECORDS SUMMARY | 2025-01-12 13:40 | XMS_ITS | Clinical Summary ---
Author Organization [facility] [place] Address [address] [place] [address] Phone Care Team Providers Care Mobile Pet Groomer Name Role Phone Nasreen Nicholson PAC Primary Care Pro vider Medications Etanercept (Enbrel SureClick) 50 MG/ML Solution Auto-injector by Subcutaneous route. Active meloxicam (MOBIC) 15 MG Tablet TAKE 1 TABLET BY MOUTH EVERY DAY WITH FOOD NEEDED FOR PAIN 4 Active folic acid (FOLVITE) 1 MG Tablet Take 1 mg by mouth. 3 Active methotrexate 2.5 MG Tablet Take 2.5 mg by mouth 4 Active DULoxetine (CYMBALTA) [address] Particles Take 30 mg by mouth daily. Active lisinopril-hyd roCHLOROthiazi de (PRINZIDE, ZESTORETIC) 20-12.5 MG Tablet TAKE 1 TABLET BY MOUTH EVERY DAY 90 Tablet 1 4 Active fluticasone (FLONASE) 50 MCG/ACT Suspension 1 [place] by Nasal route daily. 16 g 5 5 Active amLODIPine (NORVASC) 10 MG Tablet Take 0.5 Tablets by mouth daily. 90 Tablet 3 5 Active omeprazole (PriLOSEC) 20 MG CAPSULE DELAYED RELEASE Take 1 Capsule by mouth daily. 90 Capsule 1 5 Active fluticasone (FLONASE) 50 MCG/ACT Suspension 1 [place] by Nasal route. 1 025 Discontin ued(Reord er) famotidine (PEPCID) 20 MG Tablet Take 1 Tablet by mouth 2 times daily. 90 Tablet 3 4 025 Discontin ued(Alter thiago therapy) amLODIPine (NORVASC) 10 MG Tablet Take 1 Tablet by mouth daily. 90 Tablet 3 4 025 Discontin ued(Dose adjustmen t) Active Problems Problem Noted Date Diagnosed Date Anxiety 03/05/2024 Low vitamin D level 02/13/2024 Mitral valve insufficiency 02/13/2024 Left ventricular hypertrophy 02/13/2024 Palpitations 02/13/2024 Diastolic dysfunction 02/13/2024 Primary hypertension 02/13/2024 Migraine 02/13/2024 Psoriatic arthritis 02/13/2024 Overview (02/13/2024): RHEUM follows Obesity 02/13/2024 Gastroesophageal reflux disease without esophagi tis 02/13/2024 Encounters Date Type Department Care Team Description 01/07/2025 3:15 PM TOOL INSPECTOR Office Visit [facility] - Internal [facility] [address] [place] [address] Yann Khalli MD Essential hypertension, benign (Primary Dx); Encounter for immunization; Edema of both lower extremities Discharge Disposition: Discharged to home or Selfcare 01/07/2025 Travel 12/03/2024 Telephone [facility] - Primary Care Access [address] [address] Nasreen Nicholson, NONI 11/11/2024 Travel from Last 3 Months Immunizations Immunization Administration Dates Next Due Covid-19, Mrna, Lnp-s, Pf, 1 00 Mcg Or 50 Mcg Dose (MODERNA) 03/17/2021,02/17/2021 Hepatitis A Vaccine 02/05/2008 Influenza Vaccine, Quadrivalent, PF 12/18/2016 Influenza, Injectable, Quadrivalent 10/29/2019 Influenza, Seasonal, Injectable, Undefined 09/22 Influenza,Split Virus,Trivalent,Injectable,PF Tuberculin Skin Test; Purifi ed Protein Derivative Solutiol 06/27/2008 Family History Medical History Relation Name Comments Diabetes Mother Kidney Disease Mother Relation Name Status Comments Father Mother Social History Tobacco Use Types Packs/Day Years Used Date Smoking Tobacco: Never Passive Smoke Exposure: Never Smokeless Tobacco: Never Tobacco Cessation:Counseling Given: No Alcohol Use Standard Drinks/Week Comments Not Currently 0 (1 standard drink = 0.6 oz pur e alcohol) [facility] Utilities Answer Date Recorded In the past 12 months has th e electric, gas, oil, or water company threatened to shut off services in your home? No 01/07/2025 Social Connection and Isolation Panel [NHANES] A nswer Date Recorded In a typical week, how many times do you talk on the phone with family, friends, or neighbors? Once a week 01/07/2025 How often do you get together with friends or re latives? Once a week 01/07/2025 Attends Judaism Services Not on file 01/07 Active Member of Clubs or Organizations Not on f ile 01/07/2025 Attends Club or Organization Meetings Not on shannan e 01/07/2025 Marital Status Not on file 01/07/2025 AUDIT-C Answer Date Recorded Q1: How often do you have a drink containing alcohol? Never 01/07/2025 Q2: How many drinks containi ng alcohol do you have on a typical day when you are drinking? Patient does not drink Frequency of Binge Drinking Not on file 12/28 Overall Financial Resource Strain (CARDIA) Answe r Date Recorded How hard is it for you to pa y for the very basics like food, housing, medical care, and heating? Somewhat hard 01/07/2025 PHQ-2 Answer Date Recorded Total Score - Questions 1-9 0 12/28 [facility] - Occupational Stress Questionnaire Answer Date Recorded Do you feel stress - tense, restless, nervous, or anxious, or unable to sleep at night because your mind is troubled all the time - these days? Not at all 01/07/2025 Exercise Vital Sign Answer Date Recorde d On average, how many days pe r week do you engage in moderate to strenuous exercise (like a brisk walk)? 0 days Minutes of Exercise per Session Not on file 01/07/2025 Hunger Vital Sign Answer Date Recorded Within the past 12 months, y ou worried that your food would run out before you got the money to buy more. Never true 01/07/20 25 Within the past 12 months, t he food you bought just didn't last and you didn't have money to get more. Never true 01/07/2025 PRAPARE - Transportation Answer Date Re corded In the past 12 months, has l ack of transportation kept you from medical appointments or from getting medications? No 12/28 In the past 12 months, has l ack of transportation kept you from meetings, work, or from getting things needed for daily living? No 01/07/2025 Housing Stability Vital Sign Answer Ismael e Recorded In the last 12 months, was t here a time when you were not able to pay the mortgage or rent on time? No 01/07/2025 In the past 12 months, how m any times have you moved where you were living? 0 01/07/2025 At any time in the past 12 m [facility], were you homeless or living in a custodial (including now)? No 01/07/2025 Sexually Active Control Partners Comments Not Currently Comments Unknown Sex and Gender Information Value Date Recorded Sex Assigned at Not on file Legal Sex Female 10:29 AM CDT Gender Identity Not on file Sexual Orientation Not on file Last Filed Vital Signs Vital Sign Reading Time Taken Comments Blood Pressure 128/72 01/07/2025 3:18 PM TOOL INSPECTOR Pulse 88 01/07/2025 3:18 PM TOOL INSPECTOR Temperature 36.7 C (98.1 F) 01/07/2025 3:18 PM TOOL INSPECTOR Respiratory Rate 12 03/12/2024 1:59 PM CDT Oxygen Saturation 98% 01/07/2025 3:18 PM TOOL INSPECTOR Inhaled Oxygen Concentration - - Weight 80.3 kg (177 lb) 01/07/2025 3:18 PM TOOL INSPECTOR Height 149.9 cm (4' 11 ) 01/07/2025 3:18 PM TOOL INSPECTOR Body Mass Index 35.75 01/07/2025 3:18 PM TOOL INSPECTOR Plan of Treatment Upcoming Encounters Date Type Department Care Team (Late st Contact Info) Description 04/09/2025 8:45 AM CDT Office Visit [facility] [place] [address] [place] [address] Nasreen Nicholson, [facility] [address] [place] [address] Health Maintenance Due Date Last Done Comments TdaP Immunization 1971 Hepatitis B Immunization (1 of 3 - 19+ 3-dose series) 1990 Zoster Immunization (1 of 2) 1990 HPV/Cotest 2001 SARS-COV-2 Immunization (3 - Moderna risk series) 04/14/2021 03/17/2021, 02/17/2021 Cologuard 2021 Immunochemical Fecal Occult Blood 2021 Pneumococcal Immunization (50+ years) (1 of 1 - PCV) 2021 Mammogram 08/08/2026 08/08/2024, 07/29, 08/17/2023, Additional history exists Cervical Cancer Screening (CCS) 08/08/2027 Pap Smear 08/08/2027 08/08/2024 Colonoscopy 04/05/2032 04/05/2022 Colorectal Cancer Screening 04/05/2032 Respiratory Syncytial Virus (RSV) Immunization (Adult) (1 - 1-dose 75+ series) 2046 Hepatitis C Virus (HCV) Screening Completed 12/04/2024, 11/28/2023 Influenza Immunization Completed , 10/29/2019, 12/18/2016 Meningococcal Immunization (ACWY) Aged Out No longer eligible based on patient's age to complete this topic Rotavirus Immunization Aged Out No lo nger eligible based on patient's age to complete this topic Procedures Procedure Name Priority Date/Time Associated Diagnosis Comments RHEUMATOLOGY CONSULT 12/11/2024 12:00 AM TOOL INSPECTOR from Last 3 Months Results * RHEUMATOLOGY CONSULT (12/11/2024 12:00 AM TOOL INSPECTOR) 12/11/2024 us Provider Scan GENERIC SCAN ORDERS CONSULT Bina l Result SCAN from Last 3 Months Insurance [facility] Care Teams Mobile Pet Groomer Relationship Specialty Start Date End Date Nasreen Nicholson PAC [address] [place] [address] PCP - General Physician Physician Practice Market Manager 02/13/24
--- OUTSIDE RECORDS SUMMARY | 2025-01-12 13:40 | XMS_ITS | Clinical Summary ---
Author Organization [facility] Address [address] [place] [address] Care Team Providers Care [place]ck Hammerer Name Role Phone Kerry Tejeda MD Unavailable Leo Bliss MD Unavailable [phone] Nasreen Nicholson PA-C Primary Care Pr ovider Source Comments [facility],non-owned Affiliates and Associated Physician Practices is amultiple site organization consisting of ambulatory clinics and hospital sitesin [place], [place], [place] and [place]. This disclosure is being madepursuant to the Care Everywhere program and may not contain all information available regarding this patient. Last updated 18.[facility] Allergies No known active allergies Medications * Be aware that medications may not be up to date on this document. Alwaysverify current medications with the patient. Medication Sig Dispensed Refills Start Date End Date Status fluticasone propionate (FLONASE) 50 MCG/ACT nasal spray [place] 1 [place] into each nostril 2 times daily. 1 [...] vitamin D, ergocalciferol , (Drisdol) 1.25 MG (73829 UT) capsuleIndicat ions:Psoriatic arthritis (HCC),Immunosu ppressed status [...] Primary Care Provider: Kerry Tejeda MD [address] [facility] [address] Referring Provider: Kerry Tejeda MD [address] [place] [address] Nurse prat: itzel nunez Problem Noted Date Diagnosed Date Gastroesophageal reflux disease 03/03/2022 Pain of upper abdomen 03/03/2022 Screen for colon cancer 03/03/2022 Anemia 03/03/2022 Chondromalacia of patellofemoral joint 7 Encounters Date Type Department Care Team Description 12/29/2024 Refill [facility] - Rheumatology [address] [address] Lilibeth Smith MD Refill Request 12/18/2024 10:05 AM SAMPLING THEORY TEACHER - 12/18/2024 11:59 PM SAMPLING THEORY TEACHER Hospital Encounter [facility] Health Imaging Services - Radiology [address] [place] [address] David Childs MD Discharge Disposition: Home or Self Care 12/18/2024 9:00 AM SAMPLING THEORY TEACHER Office Visit [facility] Health Pain Care [address] [id number] David Childs MD Lumbar facet arthropathy (Primary Dx); HNP (herniated nucleus pulposus), lumbar; Spinal stenosis of lumbar region, unspecified whether neurogenic claudication present; Lumbosacral radiculitis; Gait difficulty 12/18/2024 Travel 12/16/2024 Refill [facility] Rheumatology [address] [place] [address] [address] [place] [address] Lilibeth Smith MD Refill Request 12/11/2024 1:15 PM SAMPLING THEORY TEACHER Office Visit [facility] Rheumatology [address] [place] [address] Lilibeth Smith MD Psoriatic arthritis (HCC) (Primary Dx); Immunosuppressed status (HCC); Vitamin D deficiency; Polyarthralgia; High risk medications (not anticoagulants) long-term use; Elevated sed rate 12/11/2024 Travel 11/24/[address] [address] Lilibeth Smith MD MEDICATION REFILL 11/19/[address] [address] Lilibeth Smith MD Refill Request 10/13/2024 Refill [facility] Rheumatology [address] [place] [address] Lilibeth Smith MD Refill Request from Last 3 Months Immunizations Name Administration Dates Next Due INFLUENZA [...] Comments Blood Pressure 174/94 12/18/2024 9:22 AM SAMPLING THEORY TEACHER Pulse 94 12/18/2024 9:20 AM SAMPLING THEORY TEACHER Temperature 37 C (98.6 F) 08/14/2023 9:15 AM CDT Respiratory Rate 16 08/14/2023 9:15 AM CDT Oxygen Saturation 98% 08/07/2024 1:16 PM CDT Inhaled Oxygen Concentration - - Weight 81.6 kg (180 lb) 12/18/2024 9:20 AM SAMPLING THEORY TEACHER Height 149.9 cm (4' 11 ) 12/18/2024 9:20 AM SAMPLING THEORY TEACHER Body Mass Index 36.36 12/18/2024 9:20 AM SAMPLING THEORY TEACHER Plan of Treatment Upcoming Encounters Date Type Department Care Team (Late st Contact Info) Description 01/29/2025 9:20 AM SAMPLING THEORY TEACHER Office Visit [facility] Health Pain Care [id number] [place] [address] [address] [facility] [place] [address] [place] [address] [facility] [address] [place] [address] 04/11/2025 8:30 AM CDT Office Visit [facility] - Rheumatology [id number] [place] [address] [address] [place] [address] Ami Mclaughlin, CONVERTING OPERATOR-DIE STAMPING PRESS OPERATOR [address] [facility] [address] [place] [address] Health Maintenance Due Date Last Done Comments COLOGUARD (AGES 45-75) - COLON CA SCREENING 1971 CT COLONOGRAPHY - COLON CA SCREENING 1971 FIT - COLON CA SCREENING 1971 FLEX SIG - COLON CA SCREENING 1971 PAP SMEAR 1971 DTAP/TDAP/TD VACCINES (1 - Tdap) 1990 HEPATITIS B VACCINE (1 of 3 - 19+ 3-dose series) 1990 PNEUMOCOCCAL VACCINE 50+ (1 of 2 - PCV) 1990 ZOSTER VACCINE (1 of 2) 1990 COVID-19 VACCINE (3 - Moderna risk series) 04/14/2021 03/17/2021, 02/17/2021 LIPID TESTING 12/18/2021 12/18/2016 INFLUENZA VACCINE (#1) 2024 , 10/29/2019, 12/18/2016 MAMMOGRAM 08/08/2026 08/08/2024, 07/28, 08/17/2023, Additional history exists SCREENING FOR DIABETES 12/04/2027 , 08/01/2024, 03/28/2024, Additional history exists COLON MONITORING 04/05/2032 04/05/2022, 04/05/2022 COLONOSCOPY - COLON CA SCREENING 04/05/2032 04/05/2022, 04/05/2022 Colorectal Cancer Screening 04/05/2032 HIV SCREENING Completed 07/03/2022 HEPATITIS C SCREENING Completed 12/04/2024 , 11/28/2023, 09/07/2022, Additional history exists DEPRESSION SCREENING Completed 12/18/2024, 08/07/20 24 HIB VACCINE Aged Out No longer eligi ble based on patient's age to complete this topic HPV VACCINE Aged Out No longer eligi ble based on patient's age to complete this topic MENINGOCOCCAL (Group B) VACCINE Aged Out No longer eligible based on patient's age to complete this topic MENINGOCOCCAL VACCINE Aged Out No cathy saroj eligible based on patient's age to complete this topic Procedures Procedure Name Priority Date/Time Associated Diagnosis Comments XR LUMBAR SPINE 4VW OR MORE Routine 12/18/2024 10:17 AM SAMPLING THEORY TEACHER Lumbar facet arthropathy HNP (herniated nucleus pulposus), lumbar Spinal stenosis of lumbar region, unspecified whether neurogenic claudication present Lumbosacral radiculitis HEPATITIS SCREEN ACUTE ([facility]) Routine 12/04/2024 1:06 PM SAMPLING THEORY TEACHER Psoriatic arthritis (HCC) Immunosuppressed status (HCC) Vitamin D deficiency Polyarthralgia High risk medications (not anticoagulants) long-term use Elevated sed rate CBC W AUTO DIFFERENTIAL Routine 12/04/2024 1:06 PM SAMPLING THEORY TEACHER Psoriatic arthritis (HCC) Immunosuppressed status (HCC) Vitamin D deficiency Polyarthralgia High risk medications (not anticoagulants) long-term use Elevated sed rate VITAMIN D 25-HYDROXY Routine 12/04/2024 1:05 PM SAMPLING THEORY TEACHER Psoriatic arthritis (HCC) Immunosuppressed status (HCC) Vitamin D deficiency Polyarthralgia High risk medications (not anticoagulants) long-term use Elevated sed rate QUANTIFERON TB-GOLD Routine 12/04/2024 1 :05 PM SAMPLING THEORY TEACHER Psoriatic arthritis (HCC) Immunosuppressed status (HCC) Vitamin D deficiency Polyarthralgia High risk medications (not anticoagulants) long-term use Elevated sed rate ERYTHROCYTE SEDIMENTATION RATE Routine 12/04/2024 1:05 PM SAMPLING THEORY TEACHER Psoriatic arthritis (HCC) Immunosuppressed status (HCC) Vitamin D deficiency Polyarthralgia High risk medications (not anticoagulants) long-term use Elevated sed rate C-REACTIVE PROTEIN Routine 12/04/2024 1: 05 PM SAMPLING THEORY TEACHER Psoriatic arthritis (HCC) Immunosuppressed status (HCC) Vitamin D deficiency Polyarthralgia High risk medications (not anticoagulants) long-term use Elevated sed rate COMPREHENSIVE METABOLIC PANEL Routine 12/04/2024 1:05 PM SAMPLING THEORY TEACHER Psoriatic arthritis (HCC) Immunosuppressed status (HCC) Vitamin [...] LIPID PROFILE AM Draw 12/18/2016 1:40 AM SAMPLING THEORY TEACHER from Last 3 Months or Most Recently Relevant to Health Maintenance Results * XR Lumbar Spine 4Vw or More (12/18/2024 10:17 AM SAMPLING THEORY TEACHER) Anatomical Region Laterality Modality Spine Computed Radiogr aphy 12/18/2024 2:34 PM SAMPLING THEORY TEACHER Impressions 12/18/2024 3:17 PM SAMPLING THEORY TEACHER IMPRESSION: No acute osseous abnormality. Edited by Tracey Hodges on 12/18/2024 2:51 PM > Interpreting Provider: Deshaun Bella MD on 12/18/2024 3:17 PM Narrative 12/18/2024 3:17 PM SAMPLING THEORY TEACHER PROCEDURE: XR LUMBAR SPINE 4VW OR MORE [...] HEPATITIS SCREEN ACUTE ([facility]) (12/04/2024 1:06 PM SAMPLING THEORY TEACHER) Pathologist [facility] Hepatitis A Virus Antibody IgM Negative Negative [facility] ACCOUNT BILL Comment: A negative anti-HAV IgM result suggests no recent or current HAV infection. Hepatitis B Virus Surface Antigen Negative Negative [facility] ACCOUNT BILL Hepatitis B Core Virus Antibody IgM Negative Negative [facility] ACCOUNT BILL Hepatitis C Antibody Non Reactive Non Reactive [facility] ACCOUNT BILL Comment: Performed at: 01 - [facility] [address] [id number] Sheet Metal Worker Supervisor: Asa Perdomo PhD, Phone: [phone] Interpretation Comment [facility] ACCOUNT BILL Comment: Not infected with HCV unless early or acute infection is suspected (which may be delayed in an immunocompromised individual), or other evidence exists to indicate HCV infection. Blood BLOOD SPECIMEN / Unknown 12/04/2024 1:06 PM SAMPLING THEORY TEACHER 12/04/2024 Narrative [facility] ACCOUNT BILL - 12/05/2024 7:09 AM SAMPLING THEORY TEACHER Performed at: - [facility] [address] [id number] Sheet Metal Worker Supervisor: Asa Perdomo PhD, Phone: [phone] Lilibeth Smith MD LAB - CHEMISTRY ROBERTH STEPHENSON [facility] ACCOUNT BILL [address] [place] [address] * (ABNORMAL) CBC WITH DIFFERENTIAL (12/04/2024 1:06 PM SAMPLING THEORY TEACHER) Pathologist [facility] WBC 6.3 3.4 - 10.8 x10E3/uL [facility] [...] BLOOD SPECIMEN / Unknown 12/04/2024 1:06 PM SAMPLING THEORY TEACHER 12/04/2024 Narrative [facility] ACCOUNT BILL - 12/05/2024 6:10 AM SAMPLING THEORY TEACHER Performed at: [address] [place] [id number] Sheet Metal Worker Supervisor: Asa Perdomo PhD, Phone: [phone] Lilibeth Smith MD LAB - HEMATOLOGY ORD ERABLES [facility] ACCOUNT BILL [address] [place] [address] * C-REACTIVE PROTEIN (12/04/2024 1:05 PM SAMPLING THEORY TEACHER) [facility] C-Reactive Protein 2 0 - 10 mg/L [facility] ACCOUNT BILL Blood BLOOD SPECIMEN / Unknown 12/04/2024 1:05 PM SAMPLING THEORY TEACHER 12/04/2024 Narrative [facility] ACCOUNT BILL - 12/05/2024 7:09 AM SAMPLING THEORY TEACHER Performed at: [address] [place] [address] [place], [place] [id number] Sheet Metal Worker Supervisor: Asa Perdomo PhD, Phone: [phone] Lilibeth Smith MD LAB - CHEMISTRY ROBERTH STEPHENSON Performing Organization Address [facility] de Phone Number [facility] ACCOUNT BILL [address] [place] [address] * VITAMIN D 25-HYDROXY (12/04/2024 1:05 PM SAMPLING THEORY TEACHER) Vitamin D, 25 Hydroxy 37.3 30.0 - 100.0 ng/mL [facility] ACCOUNT BILL Comment: Vitamin D deficiency has been defined by the [place] of Medicine and an Endocrine Society practice guideline as a level of serum 25-OH vitamin D less than 20 ng/mL (1,2). The Endocrine Society went on to further define vitamin D insufficiency as a level between 21 and 29 ng/mL (2). 1. IOM ([place] of Medicine). 2010. Dietary reference intakes for calcium and D. [place]: The National Academies Press. 2. Gunjan MF, Kam QUIGLEY, Huy BELLO, et al. Evaluation, treatment, and prevention of vitamin D deficiency: an Endocrine Society clinical practice guideline. JCEM. 2011 May; 96(7):1911-30. Blood BLOOD SPECIMEN / Unknown 12/04/2024 1:05 PM SAMPLING THEORY TEACHER 12/04/2024 Narrative [facility] ACCOUNT BILL - 12/05/2024 8:13 AM SAMPLING THEORY TEACHER Performed at: - [facility] [address] [id number] Sheet Metal Worker Supervisor: Asa Perdomo PhD, Phone: [phone] Lilibeth Smith MD LAB - CHEMISTRY ROBERTH STEPHENSON Performing Organization Address [facility] Co de Phone Number [facility] ACCOUNT BILL [address] [place] [address] * QUANTIFERON TB-GOLD (12/04/2024 1:05 PM SAMPLING THEORY TEACHER) Pathologist [facility] QuantiFERON Incubation Incubation performed. [facility] ACCOUNT BILL QuantiFERON-TB Gold Plus Negative Negative [facility] ACCOUNT BILL Comment: No response to M tuberculosis antigens detected. Infection with M tuberculosis is unlikely, but high risk individuals should be considered for additional testing (ATS/IDSA/CDC Clinical Practice Guidelines, 2017). The reference range is an Antigen minus Nil result of <0.35 IU/mL. Chemiluminescence immunoassay methodology Performed at: [address] [place] [id number] Sheet Metal Worker Supervisor: Asa Perdomo PhD, Phone: [phone] QuantiFERON Criteria Comment [facility] ACCOUNT BILL Comment: [...] BLOOD SPECIMEN / Unknown 12/04/2024 1:05 PM SAMPLING THEORY TEACHER 12/04/2024 Narrative [facility] ACCOUNT BILL - 12/06/2024 7:07 PM SAMPLING THEORY TEACHER Performed at: [address] [place] [id number] Sheet Metal Worker Supervisor: Asa Perdomo PhD, Phone: [phone] Lilibeth Smith MD LAB - CHEMISTRY ROBERTH STEPHENSON [facility] ACCOUNT BILL [address] [place] [address] * ERYTHROCYTE SEDIMENTATION RATE (12/04/2024 1:05 PM SAMPLING THEORY TEACHER) Pathologist [facility] Erythrocyte Sedimentation Rate Westergren 23 0 - 40 mm/hr [facility] ACCOUNT BILL Blood BLOOD SPECIMEN / Unknown 12/04/2024 1:05 PM SAMPLING THEORY TEACHER 12/04/2024 Narrative [facility] ACCOUNT BILL - 12/05/2024 7:09 AM SAMPLING THEORY TEACHER Performed at: 01 - [facility] [address] [id number] Sheet Metal Worker Supervisor: Asa Perdomo PhD, Phone: [phone] Lilibeth Smith MD LAB - HEMATOLOGY ORD ERABLES [facility] ACCOUNT BILL [address] [place] [address] * (ABNORMAL) COMPREHENSIVE METABOLIC PANEL (12/04/2024 1:05 PM SAMPLING THEORY TEACHER) Glucose 139(H) 70 - 99 mg/dL [facility] [...] BLOOD SPECIMEN / Unknown 12/04/2024 1:05 PM SAMPLING THEORY TEACHER 12/04/2024 Narrative [facility] ACCOUNT BILL - 12/05/2024 7:09 AM SAMPLING THEORY TEACHER Performed at: 01 - [facility] [address] [id number] Sheet Metal Worker Supervisor: Asa Perdomo PhD, Phone: [phone] Lilibeth Smith MD LAB - CHEMISTRY ROBERTH STEPHENSON [facility] [place] [address] [place] [address] * MAMMO BILAT SCREENING W AZUCENA (08/17/2023 [...] cyst in the left breast. Melisa Marvin CONVERTING OPERATOR-DIE STAMPING PRESS OPERATOR MAMMO ORDERABLES * HIV-1 HIV-2 ANTIBODY + HIV P24 AG PANEL (07/03/2022 11:37 PM CDT) HIV1/2 Ab + P24 Ag Non Reactive Non Reactive 07/04/2022 12:37 AM CDT [facility] Blood BLOOD SPECIMEN / Unknown Venipuncture / Unknown 07/03/2022 11:37 PM CDT 07/03/2022 11:56 PM CDT Narrative [facility] - 07/04/2022 12:37 AM CDT No Laboratory evidence of HIV infection. Lizette Mazariegos MD LAB - CHEMISTRY ROBERTH STEPHENSON [facility] [address] [facility] [place] [address] * ENDOSCOPY, COLON, SCREENING (04/05/2022 8:43 AM [...] bowel preparation was evaluated using the BBPS ([place] Bowel Preparation Scale) with scores of: Right [...] for surveillance. Procedure Code(s): --- Professional --- 53064, Colonoscopy, flexible; with biopsy, single or multiple --- Technical --- 94332, Colonoscopy, flexible; with biopsy, single or multiple Diagnosis Code(s): --- Professional --- Z12.11, Encounter for screening for malignant neoplasm of colon K63.5, Polyp of colon --- Technical --- Z12.11, Encounter for screening for malignant neoplasm of colon K63.5, Polyp of colon CPT copyright 2019 [employer]. All rights reserved. The codes documented in this report are preliminary and upon workforce planner review may be revised to meet current compliance requirements. __ Shira Hogan MD 04/05/2022 10:22:06 AM Number of Addenda: 0 Note Initiated On: 04/05/2022 8:43 AM [facility] 04/05/2022 8:43 AM CDT Shira Hogan MD GI PROCEDURE ORDERAB LES Performing Organization Address City/[facility]/ZIP Co de Phone Number [facility] [place] [address] * LIPID PROFILE (12/18/2016 1:40 AM SAMPLING THEORY TEACHER) Cholesterol 193 <200 mg/dL 12/18/2016 2:25 AM SAMPLING THEORY TEACHER [facility] Triglycerides 135 <150 mg/dL 12/18/2016 2:25 AM SAMPLING THEORY TEACHER [facility] HDL Cholesterol 47 >40 mg/dL 7 2:25 AM SAMPLING THEORY TEACHER [facility] LDL Calculated 119 <130 mg/dL 12/18/2016 2:25 AM SAMPLING THEORY TEACHER [facility] VLDL Calculated 27 <=30 mg/dL 7 2:25 AM SAMPLING THEORY TEACHER [facility] Chol HDL Ratio 4.1 <4.5 12/18/2016 2:25 AM SAMPLING THEORY TEACHER [facility] LDL/HDL Ratio 2.5 <5.0 12/18/2016 2:25 AM SAMPLING THEORY TEACHER [facility] Blood BLOOD SPECIMEN / Unknown 12/18/2016 1:40 AM SAMPLING THEORY TEACHER 12/18/2016 2:02 AM SAMPLING THEORY TEACHER Matt Busch DO LAB - CHEMISTRY ORD ERABLES Performing Organization Address City/[facility]/ZIP Co de Phone Number [facility] [address] [place] [address] from Last 3 Months or Most Recently Relevant to Health Maintenance Advance Directives * Full Code (Latest Code Status on File) Date Activated Date Inactivated Comments 12/17/2016 6:19 AM 12/18/2016 3:34 PM Care Teams Bell Neck Hammerer Relationship Specialty Start Date End Date Nasreen Nicholson PA-C [address] [place] [address] PCP - General Physician Jig And Fixture Repairer 12/11/24 Kerry Tejeda MD [address] [place] [address] Internal Medicine 08/05/20 [place] [address] [address] Orthopedic Surgery 07/26/17
--- OUTSIDE RECORDS SUMMARY | 2025-01-12 13:40 | XMS_ITS | Referral Summary ---
Author Organization [facility] Address [address] [place] [address] Care Team Providers Care Event Operations Manager Name Role Phone Nasreen Nicholson Primary Care Prov ider Encounters Date Type Department Care Team Description 11/06/2024 6:27 PM BREAD DOUGH MIXER - 11/06/2024 8:21 PM BREAD DOUGH MIXER Emergency [facility] Emergency Department [address] [place] [address] Chest pain, unspecified type (Primary Dx) Discharge Disposition: Discharge to home or self care 10/31/2024 12:20 PM BREAD DOUGH MIXER - 10/31/2024 11:59 PM BREAD DOUGH MIXER Hospital Encounter [facility] [address] [place] [address] Encounter for disability determination Discharge Disposition: Discharge to home or self care from Last 3 Months Allergies No known active allergies Medications lisinopril-hydr [...] 03/14/2015 Lip pain 03/14/2015 Lip swelling 03/14/2015 Immunizations Immunization Administration Dates Next Due Hep A, Adult 02/05/2008 Influenza, Quadrivalent, Split, Intramuscular Influenza, Quadrivalent, Spl it, Preservative Free, Intramuscular 12/18/2016 Influenza, Trivalent, IM (MDV) 09/22/2021 Moderna SARS-CoV-2 Monovalent Vaccination (12+ Y RS) 03/17/2021,02/17/2021 PPD TEST 06/27/2008 Social History Tobacco Use Types Packs/Day Years Used Date Smoking Tobacco: Never Smokeless Tobacco: Never Tobacco Cessation:Counseling Given: No [facility] Utilities Answer Date Recorded In the past 12 months has e [employer], gas, oil, or water [employer] threatened to shut off services in your [...] week 02/09/2024 How often do you attend chur ch or holiness services? Never 02/09/2024 Do you belong to any clubs o r organizations such as worship groups, unions, fraternal or athletic groups, or [...] place to sleep or slept in a custodial (including now)? No 02/09/2024 Personal Safety Answer [...] on file Legal Sex Female 7:24 AM BREAD DOUGH MIXER Gender Identity Not on file Sexual Orientation Not on file Last Filed Vital Signs Vital Sign Reading Time Taken Comments Blood Pressure 128/59 11/06/2024 7:53 PM BREAD DOUGH MIXER Pulse 86 11/06/2024 7:53 PM BREAD DOUGH MIXER Temperature 36.8 C (98.2 F) 11/06/2024 2:41 PM BREAD DOUGH MIXER Respiratory Rate 15 11/06/2024 7:53 PM BREAD DOUGH MIXER Oxygen Saturation 97% 11/06/2024 7:53 PM BREAD DOUGH MIXER Inhaled Oxygen Concentration - - Weight 78.9 kg (174 lb) 11/06/2024 2:41 PM BREAD DOUGH MIXER Height 149.9 cm (4' 11 ) 11/06/2024 2:41 PM BREAD DOUGH MIXER Body Mass Index 35.14 11/06/2024 2:41 PM BREAD DOUGH MIXER Plan of Treatment Not on file Procedures Procedure Name Priority Date/Time Associated Diagnosis Comments PRO B-TYPE NATRIURETIC PEPTIDE STAT 11/06/2024 7:14 PM BREAD DOUGH MIXER TROPONIN T HIGH-SENSITIVITY 4-HR Timed 11/06/2024 7:14 PM BREAD DOUGH MIXER XR CHEST 1 VIEW ED 11/06/2024 4:05 PM BREAD DOUGH MIXER EGFR STAT 11/06/2024 2:54 PM BREAD DOUGH MIXER DIFFERENTIAL AUTO STAT 11/06/2024 2:5 4 PM BREAD DOUGH MIXER TROPONIN T HIGH-SENSITIVITY SERIES (BASELINE, 2HR, 4HR, 6HR) STAT 11/06/2024 2:54 PM BREAD DOUGH MIXER COMPREHENSIVE METABOLIC PANEL STAT 11/06/2024 2:54 PM BREAD DOUGH MIXER CBC WITH AUTO DIFFERENTIAL STAT 11/06/2024 2:54 PM BREAD DOUGH MIXER ECG 12-LEAD STAT 11/06/2024 2:38 PM BREAD DOUGH MIXER XR HAND RIGHT 2 VIEWS Schedule Routine, Read Routine (OP Routine) 10/31/2024 12:33 PM BREAD DOUGH MIXER Encounter for disability determination XR HAND LEFT 2 VIEWS Schedule Routine, Read Routine (OP Routine) 10/31/2024 12:33 PM BREAD DOUGH MIXER Encounter for disability determination HIGH RISK HPV [...] Troponin T high-sensitivity 4-hour (11/06/2024 7:14 PM BREAD DOUGH MIXER) Trop T hs <6 <=14 ng/L Comment: Interpretive Data For further hscTnT resources including the diagnostic algorithm and an aid in interpretation, copy and paste this link: https://nrl.testcatalog.org/show/hsTrop Current Interpretive Data last revised 2020. Trop T hs delta 0 ng/L [facility] ([place]) Trop T hs interp Insignificant [facility] ([place]) Blood 11/06/2024 7:14 PM BREAD DOUGH MIXER 11/06/2024 7:17 PM BREAD DOUGH MIXER us Angel Parekh MD LAB BLOOD ORDERABLES Final R esult [facility] ([place]) 1 [facility] Department [place] [address] * Pro B-type natriuretic peptide (11/06/2024 7:14 PM BREAD DOUGH MIXER) NT-proBNP <36 <=300 pg/mL Comment: Interpretive Comments: [...] et.al. Eur Heart J. 2006:27:330-337. 2. Norman RW, Janet LOPEZ. J. AM Robson Cardiol: Cardiovasc Imag. 2009;2: 216- 225. Interpretive Data Last Revised Date: 2018. Blood 11/06/2024 7:14 PM BREAD DOUGH MIXER 11/06/2024 7:17 PM BREAD DOUGH MIXER us Shyanne HARPER LAB BLOOD ORDERABLES Final Resu lt [facility] ([place]) 1 [facility] Department [place] [address] * XR Chest 1 Vw Portable (if patient condition/safety warrant portable) (11/06/2024 4:05 PM BREAD DOUGH MIXER) Anatomical Region Laterality Modality Body, Chest N/A Computed Radiogr aphy 11/06/2024 4:32 PM BREAD DOUGH MIXER Narrative 11/06/2024 4:34 PM BREAD DOUGH MIXER EXAM DESCRIPTION: XR CHEST 1 VIEW REASON [...] 4:34 PM - Electronically signed by Tong SU: SHARLENE Report ID: [id number] Reading Location: [id number] Procedure Note Tong Monge MD - 11/06/2024 [...] Tong Monge M.D. JA: SHARLENE Report ID: [id number] Reading Location: [place] [address] Angel Parekh MD IMG XR PROCEDURES Final Resu lt * Troponin T high-sensitivity series (baseline, 2hr, 4hr, 6hr) (11/06/2024 2:54 PM BREAD DOUGH MIXER) Pathologist [facility] Trop T hs <6 <=14 ng/L Comment: Interpretive Data For further hscTnT resources including the diagnostic algorithm and an aid in interpretation, copy and paste this link: https://nrl.testcatalog.org/show/hsTrop Current Interpretive Data last revised 2020. Blood 11/06/2024 2:54 PM BREAD DOUGH MIXER 11/06/2024 2:59 PM BREAD DOUGH MIXER Angel Parekh MD LAB BLOOD ORDERABLES Final R esult [facility] [place] 1 [facility] Department [place] [address] * eGFR (11/06/2024 2:54 PM BREAD DOUGH MIXER) Pathologist [facility] eGFR >90 >=60 mL/min/1. 73 m2 Comment: [...] last reviewed 2021. Blood 11/06/2024 2:54 PM BREAD DOUGH MIXER 11/06/2024 2:59 PM BREAD DOUGH MIXER Angel Parekh MD LAB BLOOD ORDERABLES Final R esult [facility] ([place]) 1 [facility] Department [place] [address] * (ABNORMAL) Differential, auto (11/06/2024 2:54 PM BREAD DOUGH MIXER) Neutrophil abs 5.0 1.5 - 6.5 K/cumm [...] revised on 2018. Basophil pct 0.6 % [facility] ([place]) Comment: Interpretive Data Percent cell count reference ranges are not reported, since discordance with absolute values may lead to misinterpretation of CBC data. Current Interpretive Data was last revised on 2018. Blood 11/06/2024 2:54 PM BREAD DOUGH MIXER 11/06/2024 2:59 PM BREAD DOUGH MIXER Angel Parekh MD LAB BLOOD ORDERABLES Final R esult [facility] ([place]) 1 [facility] Department [place] [address] * (ABNORMAL) CBC with auto differential (11/06/2024 2:54 PM BREAD DOUGH MIXER) WBC 8.6 3.8 - 9.9 K/cumm Hgb 12.5 11.9 - 15.5 g/dL [facility] ([place]) Hct 36.9 35.6 - 45.5 % [facility] ([place]) Plt 319 150 - 400 K/cumm [facility] ([place]) MPV 9.4 9.1 - 12.3 fL [facility] [...] NRBC abs 0.00 0.00 - 0.01 K/cumm [facility] Blood (Blood, Venous) 11/06/2024 2:54 PM BREAD DOUGH MIXER 11/06/2024 2:59 PM BREAD DOUGH MIXER Angel Parekh MD LAB BLOOD ORDERABLES Final R esult [facility] ([place] 1 [facility] Department [place] [address] * (ABNORMAL) Comprehensive metabolic panel (11/06/2024 2:54 PM BREAD DOUGH MIXER) Sodium 133(L) 135 - 145 mmol/L Potassium, pl 4.0 3.3 - 4.9 mmol/L [facility] Chloride 100 97 - 110 mmol/L [facility] ([place] CO2 24 22 - 32 mmol/L [facility] ([place]) Anion gap 9 2 - 15 mmol/L [facility] ([place]) BUN 17 6 - 25 mg/dL [facility] Creatinine 0.63 0.60 - 1.10 mg/dL [facility] ([place]) Glucose 93 70 - 199 mg/dL [facility] ([place]) Comment: Interpretive Data Fasting glucose [...] classification and Diagnosis of Diabetes Diabetes Care 2021; 46: S19-S40. Current interpretive data was last [...] [facility] ([place]) Blood 11/06/2024 2:54 PM BREAD DOUGH MIXER 11/06/2024 2:59 PM BREAD DOUGH MIXER Angel Parekh MD LAB BLOOD ORDERABLES Final R esult Performing Organization Address City/[facility]/ZIP Co de Phone Number [facility] ([place]) 1 [facility] Department [place] [address] * ECG 12 lead (11/06/2024 2:38 PM BREAD DOUGH MIXER) 11/06/2024 2:38 PM BREAD DOUGH MIXER Narrative [facility] Splice - 11/06/2024 5:32 PM BREAD DOUGH MIXER Vent Rate: 93 bpm RR Interval: 639 msec [place] Interval: 169 msec QRS Duration: 113 msec QT Interval: 372 msec QTC Interval: 423 msec P-R-T Cidra: 53 - 25 - 75 degrees IMPRESSION: SINUS RHYTHM MODERATE INTRAVENTRICULAR CONDUCTION DELAY [110+ ms QRS DURATION] NONSPECIFIC ST \T\ T-WAVE ABNORMALITY BORDERLINE ECG No change from prior EKG Electronically Signed By: Jaden Perry MD Angel Parekh MD ECG ORDERABLES Final Result Performing Organization Address [facility]/ZIP Co de Phone Number [employer] [facility] * XR Hand Right 2 Views (10/31/2024 12:33 PM BREAD DOUGH MIXER) Anatomical Region Laterality Modality Upper Extremities, Hand Right Computed Radiography 10/31/2024 9:47 PM BREAD DOUGH MIXER Narrative 10/31/2024 9:48 PM BREAD DOUGH MIXER EXAM DESCRIPTION: XR HAND LEFT 2 VIEWS; [...] IMPRESSION: No radiographic evidence of inflammatory arthritis. 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 THIS IS AN ELECTRONICALLY VERIFIED FINAL REPORT 10/31/2024 9:48 PM - Electronically signed by Isaac Khan M.D. MF: QUINTIN Report ID: [id number] Reading Location: [id number] Procedure Note Isaac Khan MD - 10/31/2024 [...] IMPRESSION: No radiographic evidence of inflammatory arthritis. 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 THIS IS AN ELECTRONICALLY VERIFIED FINAL REPORT 10/31/2024 9:48 PM - Electronically signed by Isaac Khan M.D. MF: QUINTIN Report ID: [id number] Reading Location: [id number] James Smith MD IMG XR PROCEDURES Final Result * XR Hand Left 2 Views (10/31/2024 12:33 PM BREAD DOUGH MIXER) Anatomical Region Laterality Modality Upper Extremities, Hand Left Computed Radiography 10/31/2024 9:47 PM BREAD DOUGH MIXER Narrative 10/31/2024 9:48 PM BREAD DOUGH MIXER EXAM DESCRIPTION: XR HAND LEFT 2 VIEWS; [...] IMPRESSION: No radiographic evidence of inflammatory arthritis. 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 THIS IS AN ELECTRONICALLY VERIFIED FINAL REPORT 10/31/2024 9:48 PM - Electronically signed by Isaac Khan M.D. MF: QUINTIN Report ID: [id number] Reading Location: [id number] Procedure Note Isaac Khan MD - 10/31/2024 [...] IMPRESSION: No radiographic evidence of inflammatory arthritis. 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 THIS IS AN ELECTRONICALLY VERIFIED FINAL REPORT 10/31/2024 9:48 PM - Electronically signed by Isaac Khan M.D. MF: QUINTIN Report ID: [id number] Reading Location: [id number] James Smith MD IMG XR PROCEDURES Final Result * High Risk HPV DNA Detection with Genotyping (Molecular component) (08/08/2024 11:11 AM CDT) HPV HR 16 Not Detected Not Detected [facility] Comment:Testing performed by : [facility], [address] [place]., [address] HPV HR 18 Not Detected Not Detected [facility] Comment:Testing performed by : [facility], [address] [place]., [address] HPV HR Non 16/18 Not Detected Not Detected [facility] Comment: Interpretive Data Nucleic acid amplification for [...] this test have been verified by the [facility] Molecular Infectious Disease laboratory. Correlate with separately reported cytology results, as applicable. Interpretive data last revised 23 Testing performed by: [facility], [address] [place]., [address] Endocervical 08/08/2024 11:1 1 AM CDT 08/09/2024 12:01 PM CDT Narrative [facility] - 08/09/2024 11:38 PM CDT Clinical history and diagnosis->Liquid-based PAP test with high risk HPV test- Z12.4 Number of vials->1 Testing type->Screening Last menstrual period (date if known)->02/12/24 us Teto Mcdowell DO LAB BODY FLUIDS AND STO OLS ORDERABLES Final Result [facility] [address] [address] Department [place] [address] [facility] * Screening Mammogram Bilateral W Francisco J (08/08/2024 11:04 AM CDT) Anatomical Region Laterality Modality Breast Bilateral Mammography 08/12/2024 9:4 7 AM CDT Addenda Addendum by Mahnaz Garrison [...] Most Recently Relevant to Health Maintenance Insurance [facility] CHO[facility] PLUS [facility] [place] [address] [place] [address] BUREAU OF DISABILITY Care Teams Event Operations Manager Relationship Specialty Start Date End Date Nasreen Nicholson PA PCP - General Neurosurgery 03/19/24
[2025-01-12 13:47] VITALS: BP 137/73; PULSE 91; RESP 16; TEMP 37.3; O2SAT 99
--- NOTE | 2025-01-12 14:53 | ED.GENADULT ---
HPI - General Adult General Chief complaint: Upper Respiratory Infection Stated complaint: Congestion/Sore Throat Source: patient and family Mode of arrival: ambulatory Limitations: no limitations History of Present Illness HPI narrative: Patient presents for evaluation of sinus symptoms. Symptom onset 3 weeks ago. Symptoms include sinus congestion, thick yellow nasal drainage. She initially had a cough but that has since resolved. She denies any fever, chills, nausea, vomiting, diarrhea or SOB. She does not smoke. No recent sick contacts to her knowledge. Related Data Home Medications ?Medication ?Instructions ?Recorded ?Confirmed ?Last Taken ?Type amlodipine 10 mg tablet mg 11/06/24 Unknown History duloxetine 30 mg capsule,delayed mg PO 11/06/24 Unknown History release ergocalciferol (vitamin D2) 1,250 11/06/24 Unknown History mcg (50,000 unit) capsule famotidine 20 mg tablet mg 11/06/24 Unknown History folic acid 1 mg tablet 11/06/24 Unknown History lisinopril 20 tablet 11/06/24 Unknown History mg-hydrochlorothiazide 12.5 mg tablet meloxicam 15 mg tablet mg 11/06/24 Unknown History methotrexate sodium 2.5 mg tablet mg 11/06/24 Unknown History spironolactone 50 mg tablet mg 11/06/24 Unknown History Enbrel 01/12/25 Unknown History Vitamin C 01/12/25 Unknown History Allergies Allergy/AdvReac Type Severity Reaction Status Date / Time No Known Allergies Allergy Verified 01/12/25 13:45 Review of Systems Review of Systems: CONSTITUTIONAL: Denies fever, chills, or sweats. EYES: Denies visual changes, redness, or discharge. ENT: Reports sinus congestion and thick yellow nasal drainage. Denies sore throat and otalgia CARDIOVASCULAR: Denies chest pain, palpitations, or edema. RESPIRATORY: Denies cough or dyspnea. GASTROINTESTINAL: Denies abdominal pain, nausea, vomiting, or diarrhea. GENITOURINARY: Denies dysuria or hematuria. SKIN: Denies rash or itching. MUSCULOSKELETAL: Denies back pain, joint pain, or myalgia. NEUROLOGIC: Denies headache, numbness, dizziness, or weakness. PSYCHIATRIC: Denies anxiety or depression. [facility] Past Medical History Medical History Psoriatic arthritis HTN (hypertension) Surgical History Surgical History No pertinent past surgical history Family History Family History (Updated 01/12/25 @ 14:56 by Deshaun Mendenhall, TAX ACCOUNTANT, ) Mother Family history non-contributory Social History Social History Smoking status: Never smoker Substance use: never Living arrangements: with family Gender identity (if verbalized by the patient): Female Exam Narrative: GENERAL: Well-appearing, well-nourished, and in no acute distress. HEAD: Normocephalic, atraumatic. EYES: PERRLA and EOMI. ENT: frontal and bilateral maxillary sinus tenderness. Nares clear, no rhinorrhea or epistaxis. Mucous membranes moist. Oropharynx without tonsillar hypertrophy exudate or other lesions. Bilateral TMs pearly watson nonbulging NECK: Supple. No adenopathy or masses. No carotid bruits or JVD CHEST: Clear to auscultation. No respiratory distress. No wheezes rales or rhonchi HEART: Regular rate and rhythm. No murmur heard. Normal peripheral pulses. ABDOMEN: Soft, nontender, nondistended, normal active bowel sounds. EXTREMITIES: Normal range of motion. No edema. SKIN: Warm, dry, no rash. NEURO: No focal deficits. Alert and oriented x3. PSYCH: Normal mood and affect. Course Course Emergency Course: Is a 54-year-old female who presented for evaluation of sinus symptoms. She meets criteria for bacterial sinusitis based upon duration of time in which she has been symptomatic and mucopurulent nature for discharge. There is a potential drug to drug interaction between methotrexate and augmentin so will dc with doxycycline. Increase hydration. OTC agents for symptom management. Follow up with primary provider. Go to the ER for worsening symptoms. Pt in agreement with plan of care. Level of Care: Express Care Visit Vital Signs Vital signs: Vital Signs Temperature 37.3 C 01/12/25 13:47 Pulse Rate 91 01/12/25 13:47 Respiratory Rate 16 01/12/25 13:47 Blood Pressure 137/73 01/12/25 13:47 Pulse Oximetry 99 01/12/25 13:47 Oxygen Delivery Room Air 01/12/25 13:47 Temperature 37.3 C 01/12/25 13:47 Pulse Rate 91 01/12/25 13:47 Respiratory Rate 16 01/12/25 13:47 Blood Pressure 137/73 01/12/25 13:47 Pulse Oximetry 99 01/12/25 13:47 Oxygen Delivery Room Air 01/12/25 13:47 Medical Decision Making Vital Signs Vital Signs: Vital Signs Temperature 37.3 C 01/12/25 13:47 Pulse Rate 91 01/12/25 13:47 Respiratory Rate 16 01/12/25 13:47 Blood Pressure 137/73 01/12/25 13:47 Pulse Oximetry 99 01/12/25 13:47 Oxygen Delivery Room Air 01/12/25 13:47 Temperature 37.3 C 01/12/25 13:47 Pulse Rate 91 01/12/25 13:47 Respiratory Rate 01/12/25 13:47 Blood Pressure 137/73 01/12/25 13:47 Pulse Oximetry 99 01/12/25 13:47 Oxygen Delivery Room Air 01/12/25 13:47 Discharge Plan Discharge Clinical Impression: Bacterial sinusitis Patient Disposition: Home, Self-Care Condition: Stable Instructions: Antibiotic Form, Sinusitis (ED) Patient Language: Nigerian Prescriptions: New doxycycline hyclate 100 mg tablet 100 mg PO BID 10 Days Qty: 20 0RF No Action lisinopril-hydrochlorothiazide 20-12.5 mg tablet meloxicam 15 mg tablet famotidine 20 mg tablet methotrexate sodium 2.5 mg tablet amlodipine 10 mg tablet folic acid 1 mg tablet ergocalciferol (vitamin D2) 1,250 mcg (50,000 unit) capsule spironolactone 50 mg tablet duloxetine 30 mg capsule,delayed release(DR/EC) PO Vitamin C Enbrel Follow-up/Referrals: Lyn,MEREDITH Downey [Primary Care Provider] - Time of Disposition: 14:51
== END 2025-01-12 14:54 | disposition home or self-care (01) ==
PROVIDERS: Emergency Provider Nurse Practitioner; PCP Physician Assistant
DX: J32.9 Chronic sinusitis, unspecified (principal); I10 Essential (primary) hypertension; L40.50 Arthropathic psoriasis, unspecified
CPT/HCPCS: 99213; G0463

== ENCOUNTER 2025-06-20 18:34 | Emergency (ER) | payer OTHER, SELFPAY ==
--- OUTSIDE RECORDS SUMMARY | 2025-06-20 18:37 | XMS_ITS | Referral Summary ---
Author Organization [facility] Address [address] [place] [address] Care Team Providers Care Yarn Handler Name Role Phone Nasreen Nicholson Primary Care Prov ider Encounters Date Type Department Care Team Description 04/01/2025 2:00 PM CDT Office Visit Joseph Kilnman at [address] [place] [address] Martin Golden MD Palpitations (Primary Dx) from Last 3 Months Allergies No known [...] total) by mouth daily 30 capsule Active metoprolol tartrate (LOPRESSOR) 25 mg immediate release tablet Take 1 tablet (25 mg total) by mouth 2 (two) times a day 180 tablet 3 5 03/27/20 26 Active Active Problems Problem Noted Date Diagnosed [...] Smokeless Tobacco: Never Tobacco Cessation:Counseling Given: No [facility] [employer] Answer Date Recorded In the past 12 months has [employer] electric, gas, oil, or water company threatened [...] often do you attend chur ch or judaism services? Never 02/09/2024 Do you belong to any clubs o r organizations such as anglican groups, unions, fraternal or athletic groups, or [...] making you feel afraid or unsafe? Denies 02/18/2025 Education Answer Date Recorded What is the highest level of school you have completed or the highest degree you have received? Associate degree: occupational, technical, or vocational program 02/09/2024 Comments No Sex and Gender Information Value Date Recorded Sex Assigned at Not on file Legal Sex Female 7:24 AM EMERGENCY DEPARTMENT AIDE Gender Identity Not on file Sexual Orientation Not on file Last Filed Vital Signs Vital Sign Reading Time Taken Comments Blood Pressure 121/79 04/01/2025 2:06 PM CDT Pulse 76 04/01/2025 2:06 PM CDT Temperature 36.8 C (98.3 F) 02/18/2025 12:46 PM CDT Respiratory Rate 16 02/18/2025 11:45 PM CDT Oxygen Saturation 96% 02/18/2025 11:45 PM CDT Inhaled Oxygen Concentration - - Weight 80.3 kg (177 lb) 04/01/2025 2:06 PM CDT Height 149.9 cm (4' 11) 04/01/2025 2:06 PM CDT Body Mass Index 35.75 04/01/2025 2:06 PM CDT Plan of Treatment Not on file Procedures Procedure Name Priority Date/Time Associated Diagnosis Comments HIGH RISK HPV DNA DETECTION WITH GENOTYPING Routine 08/08/2024 11:11 AM CDT Screening for malignant neoplasm of cervix SCREENING MAMMOGRAM BILATERAL W FRANCISCO J Schedule Routine, Read Routine (OP Routine) 08/08/2024 11:04 AM CDT Encounter for screening mammogram for malignant neoplasm of breast from Last 3 Months or Most Recently Relevant to Health Maintenance Results * High Risk HPV DNA Detection with Genotyping (Molecular component) (08/08/2024 11:11 AM CDT) HPV HR 16 Not Detected Not Detected [facility] Comment:Testing performed by : [facility], [address] [facility], [address] HPV HR 18 Not Detected Not Detected [facility] Comment:Testing performed by : [facility], [address] [place]., [address] HPV HR Non 16/18 Not Detected Not Detected [facility] Comment: Interpretive Data Nucleic acid amplification for [...] this test have been verified by the [facility] Molecular Infectious Disease laboratory. Correlate with separately reported cytology results, as applicable. Interpretive data last revised 23 Testing performed by: [facility], [address] [facility], [address] Endocervical 08/08/2024 11:1 1 AM CDT 08/09/2024 12:01 PM CDT Narrative [facility] - 08/09/2024 11:38 PM CDT Clinical history and diagnosis->Liquid-based PAP test with high risk HPV test- Z12.4 Number of vials->1 Testing type->Screening Last menstrual period (date if known)->02/12/24 us Teto Mcdowell DO LAB BODY FLUIDS AND STO OLS ORDERABLES Final Result [facility] [address] Department [place] [address] [facility] * Screening Mammogram Bilateral W [...] Most Recently Relevant to Health Maintenance Insurance [facility] PLUS [facility] H[facility]/PPO Address[facility] [address] [place] [address] [facility] CHO[facility] PLUS [facility] H[facility]/PPO Address: [facility] [address] [place] [address] Care Teams Yarn Handler Relationship Specialty Start Date End Date Nasreen Nicohlson PA PCP - General Neurosurgery 03/19/24
--- OUTSIDE RECORDS SUMMARY | 2025-06-20 18:37 | XMS_ITS | Clinical Summary ---
Author Organization [facility] [employer] Address [address] [place] [address] Phone Care Team Providers Care Fur Clipper Name Role Phone Nasreen Nicholson Primary Care Pro vider Medications Etanercept (Enbrel [...] Take 30 mg by mouth daily. Active fluticasone (FLONASE) 50 MCG/ACT Suspension 1 Gazelle by Nasal route daily. 16 g 5 5 Active omeprazole (PriLOSEC) 20 MG CAPSULE DELAYED RELEASE Take 1 Capsule by mouth daily. 90 Capsule 1 5 Active lisinopril-hydr oCHLOROthiazide (PRINZIDE, ZESTORETIC) 20-12.5 MG Tablet Take 1 Tablet by mouth daily. 90 Tablet 1 5 Active amLODIPine (NORVASC) 10 MG Tablet TAKE 1 TABLET BY MOUTH EVERY DAY 90 Tablet 3 5 Active atorvastatin (LIPITOR) 40 MG Tablet Take 1 Tablet by mouth daily. 90 Tablet 3 5 Active Active Problems Problem Noted Date Diagnosed Date Anxiety 03/05/2024 Low vitamin D level 02/13/2024 Mitral valve insufficiency 02/13/2024 Left ventricular hypertrophy 02/13/2024 Palpitations 02/13/2024 Diastolic dysfunction 02/13/2024 Primary hypertension 02/13/2024 Migraine 02/13/2024 Psoriatic arthritis 02/13/2024 Overview (02/13/2024): RHEUM follows Obesity 02/13/2024 Gastroesophageal reflux disease without esophagi tis 02/13/2024 Encounters Date Type Department Care Team Description 05/05/2025 Telephone [facility] [address] [place] [address] Nasreen Nicholson, PAC 04/28/2025 Documentation Only [facility] [address] [facility] [place] [address] Nasreen Nicholson, PAC 04/17/2025 Documentation Only [facility] [address], [place] [address] [place] [phone] Idalia Chang, PT Chronic bilateral low back pain with left-sided sciatica (Primary Dx); Psoriatic arthritis (HCC); Chronic pain of left knee 04/16/2025 Telephone [facility] [address], [place] [address] [place] [address] Idalia Chang, PT No Show 04/14/2025 Telephone [facility] [address], [place] [address] [place] [address] Idalia Chang, PT No Show (No show) 04/10/2025 3:15 PM CDT Physical Therapy [facility] [address], [address] [place] [address] Nasreen Nicholson, PAC Liu Mena, COMMERCIAL INSULATOR Chronic bilateral low back pain with left-sided sciatica (Primary Dx) Discharge Disposition: Discharged to home or Selfcare 04/09/2025 8:45 AM CDT Office Visit [facility] [address] [place] [phone] Nasreen Nicholson, NONI Chronic pain of left knee (Primary Dx); Hyperlipidemia, unspecified hyperlipidemia type Discharge Disposition: Discharged to home or Selfcare 04/09/2025 Travel 04/07/2025 Results Follow-Up [facility] [address] [place] [address] Nasreen Nicholson, NONI CMP (COMPREHENSIVE METABOLIC PANEL), SIMEON SCREEN MULTIPLEX W/REFLEX FAN, CYCLIC CITRULLINATED PEPTIDE 3, Additional followed-up results: 4 04/07/2025 Refill [facility] [address] [place] [phone] Nasreen Nicholson, NONI Medication Refill 04/04/2025 9:15 AM CDT Physical Therapy [facility] [address] [place] [address] Nasreen Nicholson PAC Stewart, James R, ELBERT Chronic bilateral low back pain with left-sided sciatica (Primary Dx) Discharge Disposition: Discharged to home or Selfcare 04/03/2025 Travel 04/02/2025 Documentation Only [facility] [address] [place] [address] Norah Mcgregor, OT 03/26/2025 2:30 PM CDT Physical Therapy [facility] [address] [place] [address] Nasreen Nicholson PAC Stewart, James R, COMMERCIAL INSULATOR Chronic bilateral low back pain with left-sided sciatica (Primary Dx) Discharge Disposition: Discharged to home or Selfcare 03/24/2025 10:45 AM CDT Physical Therapy [facility] [address] [place] [address] [place] [address] Nasreen Nicholson, Idalia Hdez, PT Chronic bilateral low back pain with left-sided sciatica (Primary Dx); Psoriatic arthritis (HCC); Chronic pain of left knee Discharge Disposition: Discharged to home or Selfcare 03/24/2025 Plan of Care Documentation [facility] [address], [address] [place] [address] 03/24/2025 Travel from Last 3 Months Immunizations Immunization [...] drink = 0.6 oz pur e alcohol) [facility] Utilities Answer Date Recorded In the past 12 months has [employer], gas, oil, or water [employer] threatened to shut off services in your home? Yes 03/06/2025 Social Connection and Isolation Panel Answer Date Recorded In a typical week, how many times do you talk on the phone with family, friends, or neighbors? Once a week 03/06/2025 How often do you get togethe r with friends or relatives? Patient declined 03/06/2025 How often do you attend adventism or church serv ices? Never 03/06/2025 Do you belong to any clubs o r organizations such as adventism groups, unions, fraternal or athletic groups, or school groups? No 03/06/2025 How often do you attend meet ings of the clubs or organizations you belong to? Never 03/06/2025 Are you , , di vorced, , never , or living with a partner? 03/06/2025 AUDIT-C Answer Date Recorded Q1: How often do you have a drink containing alcohol? Never 03/06/2025 Q2: How many drinks containi ng alcohol do you have on a typical day when you are drinking? Patient does not drink Q3: How often do you have si x or more drinks on one occasion? Never 03/06/2025 Overall Financial Resource Strain (CARDIA) Answe r Date Recorded How hard is it for you to pa y for the very basics like food, housing, medical care, and heating? Somewhat hard 03/06/2025 PHQ-2 Answer Date Recorded Total Score - Questions 1-9 5 03/27 [facility] - Occupational Stress Questionnaire Answer Date Recorded Do you feel stress - tense, restless, nervous, or anxious, or unable to sleep at night because your mind is troubled all the time - these days? To some extent 03/06/2025 Exercise Vital Sign Answer Date Recorde d On average, how many days pe r week do you engage in moderate to strenuous exercise (like a brisk walk)? 0 days 03/06/2025 On average, how many minutes do you engage in exercise at this level? 0 min 03/06/2025 Hunger Vital Sign Answer Date Recorded Within the past 12 months, y ou worried that your food would run out before you got the money to buy more. Never true 03/06/20 25 Within the past 12 months, t he food you bought just didn't last and you didn't have money to get more. Never true 03/06/2025 PRAPARE - Transportation Answer Date Re corded In the past 12 months, has l ack of transportation kept you from medical appointments or from getting medications? No 02/25 In the past 12 months, has l ack of transportation kept you from meetings, work, or from getting things needed for daily living? No 03/06/2025 Housing Stability Vital Sign Answer Ismael e Recorded In the last 12 months, was t here a time when you were not able to pay the mortgage or rent on time? No 03/06/2025 In the past 12 months, how m any times have you moved where you were living? 0 03/06/2025 At any time in the past 12 m [facility], were you homeless or living in a care home (including now)? No 03/06/2025 Sexually Active Control Partners Comments Not Currently Comments Unknown Sex and Gender Information Value Date Recorded Sex Assigned at Not on file Legal Sex Female 10:29 AM CDT Gender Identity Not on file Sexual Orientation Not on file Last Filed Vital Signs Vital Sign Reading Time Taken Comments Blood Pressure 124/78 04/09/2025 9:03 AM CDT Pulse 76 04/09/2025 9:03 AM CDT Temperature 36.9 C (98.4 F) 04/09/2025 9:03 AM CDT Respiratory Rate 12 04/09/2025 9:03 AM CDT Oxygen Saturation 96% 04/09/2025 9:03 AM CDT Inhaled Oxygen Concentration - - Weight 80.6 kg (177 lb 9.6 oz) 04/09/2025 9:03 A M CDT Height 149.9 cm (4' 11) 01/07/2025 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 Body Mass Index 35.87 01/07/2025 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 Plan of Treatment Upcoming Encounters Date Type Department Care Team (Late st Contact Info) Description 10/10/2025 9:30 AM ORDNANCE TRUCK INSTALLATION SUPERVISOR Office Visit [facility] [employer] [address] [place] [phone] Nasreen Nicholson, [facility] [address] [place] [address] Health Maintenance Due Date Last Done Comments TdaP Immunization 1971 Hepatitis B Immunization (1 of 3 - 19+ 3-dose series) 1990 Zoster Immunization (1 of 2) 1990 HPV/Cotest 2001 Cologuard 2016 Immunochemical Fecal Occult Blood 2016 SARS-COV-2 Immunization (3 - Moderna risk series) 04/14/2021 03/17/2021, 02/17/2021 Pneumococcal Immunization (50+ years) (1 of 1 - PCV) 2021 Influenza Immunization (#1) 07/28/202512/28, 09/22/2021, 10/29/2019, Additional history exists Mammogram 08/08/2025 08/08/2024, 07/29, 08/17/2023, Additional history exists Cervical Cancer Screening (CCS) 08/08/2027 Pap Smear 08/08/2027 08/08/2024 Colonoscopy 04/05/2032 04/05/2022 Colorectal Cancer Screening 04/05/2032 Respiratory Syncytial Virus (RSV) Immunization (Adult) (1 - 1-dose 75+ series) 2046 Hepatitis C Virus (HCV) Screening Completed 12/04/2024, 11/28/2023 Human Papillomavirus (HPV) Immunization Aged Out No longer eligible based on patient's age to complete this topic Meningococcal Immunization (ACWY) Aged Out No longer eligible based on patient's age to complete this topic Rotavirus Immunization Aged Out No lo nger eligible based on patient's age to complete this topic Procedures Procedure Name Priority Date/Time Associated Diagnosis Comments LIPID PANEL Routine 04/03/2025 8:08 AM CDT Well adult exam THYROID STIMULATING HORMONE (TSH) Routine 04/03/2025 8:08 AM CDT Well adult exam HEMOGLOBIN A1C W/ ESTIMATED GLUCOSE Routine 04/03/2025 8:08 AM CDT Well adult exam CYCLIC CITRULLINATED PEPTIDE 3 Routine 04/03/2025 8:08 AM CDT Psoriatic arthritis (HCC) SIMEON SCREEN MULTIPLEX W/REFLEX FAN Routine 04/03/2025 8:08 AM CDT Psoriatic arthritis (HCC) CMP (COMPREHENSIVE METABOLIC PANEL) Routine 04/03/2025 8:08 AM CDT Edema of foot RHEUMATOID FACTOR (RFQT) QUANT Routine 04/03/2025 8:06 AM CDT Edema of foot Psoriatic arthritis (HCC) Well adult exam from Last 3 Months Results * CYCLIC CITRULLINATED PEPTIDE 3 (04/03/2025 8:08 AM CDT) Pathologist [facility] CCP IGG <0.5 <3.0 U/mL 04/03/2025 3:5 1 PM CDT [facility] Blood Venipuncture / Unknown 04/03/2025 8:08 AM CDT 04/03/2025 8:31 AM CDT Narrative [facility] - 04/03/2025 3:51 PM CDT Antibody testing was performed by multiplex flow immunoassay on the Code Fever platform. Nasreen Nicholson [facility] IMMUNOLOGY ORDERA BLES Final Result Performing Organization Address City/[facility]/ZIP Co de Phone Number [facility] [address] [place] [address], * HEMOGLOBIN A1C W/ ESTIMATED GLUCOSE (04/03/2025 8:08 AM CDT) Pathologist [facility] HGB-A1C 5.8 4.0 - 6.0 % 04/03/2025 9:00 AM CDT [facility] Est Average Glucose 119.8 mg/dL 04/03/2025 9:00 AM CDT [facility] Blood Venipuncture / Unknown 04/03/2025 8:08 AM CDT 04/03/2025 8:31 AM CDT Narrative [facility] - 04/03/2025 9:00 AM CDT HEMOGLOBIN A1C: DIABETIC PATIENTS: WELL-CONTROLLED: 6.2 - 7.0 INTERMEDIATE WELL-CONTROLLED: 7.0 - 9.0 POORLY-CONTROLLED: >9.0 Specimens containing greater than 5% of Hemoglobin F may result in lower than expected % HbA1C results. Nasreen Nicholson [facility] CHEMISTRY ORDERAB LES Final Result Performing Organization Address City/[facility]/ZIP Co de Phone Number [facility] [address] [place] [address] * THYROID STIMULATING HORMONE (TSH) (04/03/2025 8:08 AM CDT) TSH 2.477 0.300 - 5.000 mIU/L 04/03/2025 9:15 AM CDT [facility] Blood Venipuncture / Unknown 04/03/2025 8:08 AM CDT 04/03/2025 8:32 AM CDT Nasreen Nicholson PAC CHEMISTRY ORDERAB LES Final Result [facility] [address] [place] [address] * (ABNORMAL) LIPID PANEL (04/03/2025 8:08 AM CDT) CHOLESTEROL 221(H) <200 mg/dL 04/03/2025 8:59 AM CDT [facility] TRIGLYCERIDES 155(H) <150 mg/dL 04/03/2025 8:59 AM CDT [facility] HDL CHOLESTEROL 42 >40 mg/dL 8:59 AM CDT [facility] LDL 148(H) <130 mg/dL 04/03/2025 8:59 AM CDT [facility] VLDL 31 10 - 50 mg/dL 04/03/2025 8:59 AM CDT [facility] CHOL/HDL RATIO 5.3(H) 0.0 - 4.4 04/03/2025 8:59 AM CDT [facility] NON-HDL CHOLESTEROL 179(H) <130 mg/dL 04/03/2025 8:59 AM CDT [facility] IS THE PATIENT REQUIRED TO BE FASTING? Yes 04/03/2025 8:59 AM CDT [facility] HAS THE PATIENT BEEN FASTING? Yes 04/03/2025 8:59 AM CDT [facility] Blood Venipuncture / Unknown 04/03/2025 8:08 AM CDT 04/03/2025 8:32 AM CDT Nasreen Elis Lyn PAC CHEMISTRY ORDERAB LES Final Result [facility] [address] [place] [address] * (ABNORMAL) CMP (COMPREHENSIVE METABOLIC PANEL) (04/03/2025 8:08 AM CDT) SODIUM 140 136 - 145 mmol/L 04/03/2025 8:59 AM CDT [facility] POTASSIUM 4.0 3.5 - 5.1 mmol/L 04/03/2025 8:59 AM CDT [facility] CHLORIDE 108(H) 98 - 107 mmol/L 04/03/2025 8:59 AM CDT [facility] CO2, VENOUS 25 22 - 30 mmol/L 04/03/2025 8:59 AM CDT [facility] ANION GAP 11.0 <18.0 mmol/L 04/03/2025 8:59 AM CDT [facility] GLUCOSE 101(H) 70 - 99 mg/dL 04/03/2025 8:59 AM CDT [facility] BUN 14 10 - 20 mg/dL 04/03/2025 8:59 AM CDT [facility] CREATININE, BLOOD 0.62 0.60 - 1.00 mg/dL 04/03/2025 8:59 AM CDT [facility] BUN/CREATININE RATIO 23(H) 12 - 20 ratio 04/03/2025 8:59 AM CDT [facility] TOTAL PROTEIN 8.7(H) 6.0 - 8.0 g/dL 04/03/2025 8:59 AM CDT [facility] ALBUMIN 4.2 3.5 - 5.0 g/dL 04/03/2025 8:59 AM CDT [facility] A/G RATIO 0.9(L) 1.0 - 2.2 04/03/2025 8:59 AM CDT [facility] CALCIUM 9.5 8.7 - 10.5 mg/dL 04/03/2025 8:59 AM CDT [facility] T BILI 0.5 0.2 - 1.2 mg/dL 04/03/2025 8:59 AM CDT [facility] SGOT (AST) 38 <43 U/L 04/03/2025 8:59 AM CDT [facility] SGPT (ALT) 44 <56 U/L 04/03/2025 8:59 AM CDT [facility] ALKALINE PHOSPHATASE 76 40 - 150 U/L 04/03/2025 8:59 AM CDT [facility] IS THE PATIENT REQUIRED TO BE FASTING? No 04/03/2025 8:59 AM CDT [facility] GFR, ESTIMATED >60 >=60 04/03/2025 8:59 AM CDT [facility] Comment: Creatinine Clearance is the preferred criteria for selecting drug dose adjustments in renally impaired patients. The GFR is provided as additional pertinent clinical information. GFR is reported in mL/min/1.73 sq m. Calculation based on the Chronic Kidney Disease Epidemiology Collaboration (CKD- EPI) equation refit without adjustment for race. GFR, EST. >60 >=60 025 8:59 AM CDT [facility] GFR, EST. NONAFRICAN >60 >=60 04/03/2025 8:59 AM CDT [facility] Blood Venipuncture / Unknown 04/03/2025 8:08 AM CDT 04/03/2025 8:32 AM CDT us Nasreen Nicholson PAC CHEMISTRY ORDERAB LES Final Result [facility] [address] [place] [address] * SIMEON SCREEN MULTIPLEX W/REFLEX FAN (04/03/2025 8:08 AM CDT) SIMEON SCR MULTIPLEX Negative Negative, See comment 04/03/2025 3:51 PM CDT [facility] Blood Venipuncture / Unknown 04/03/2025 8:08 AM CDT 04/03/2025 8:31 AM CDT Narrative [facility] - 04/03/2025 3:51 PM CDT Antibody testing was performed by multiplex flow immunoassay on the Code Fever platform. Nasreen Nicholson PAC IMMUNOLOGY ORDERA BLES Final Result Performing Organization Address [facility]/ZIP Co de Phone Number [facility] [address] [place] [address], * RHEUMATOID FACTOR (RFQT) QUANT (04/03/2025 8:06 AM CDT) Pathologist [facility] RHEUMATOID FACTOR QT <13 <30 IU/mL 04/03/2025 10:34 AM CDT [facility] Blood Venipuncture / Unknown 04/03/2025 8:06 AM CDT 04/03/2025 8:33 AM CDT Narrative [facility] - 04/03/2025 10:34 AM CDT RHEUMATOID FACTORS CAN BE FOUND IN RHEUMATOID ARTHRITIS, SYPHILIS, VIRAL INFECTIONS, LEPROSY, CHRONIC LIVER DISEASE, NEOPLASMS, AND OTHER INFLAMMATORY CONDITIONS. RF PREVALENCE ALSO INCREASES WITH AGE. THUS A POSITIVE TEST IS NOT RESTRICTED TO RA. CONVERSELY, A NEGATIVE TEST DOES NOT RULE OUT RA, RHEUMATOID FACTORS ARE NOT DETECTABLE IN 10% OF ADULTS WITH THE DISEASE. 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
--- OUTSIDE RECORDS SUMMARY | 2025-06-20 18:37 | XMS_ITS | Clinical Summary ---
Author Organization [facility] Address [address] [place] [address] Care Team Providers Care Diesel Plant Operator Name Role Phone Kerry Tejeda MD Unavailable [phone] Leo Bliss MD Unavailable [phone] Nasreen Nicholson PA-C Primary Care Pr ovider Source Comments [facility],non-owned Affiliates and Associated Physician Practices is amultiple site organization consisting of ambulatory clinics and hospital sitesin [place], [place], [place] and [place]. This disclosure is being madepursuant to the Care Everywhere program and may not contain all information available regarding this patient. Last updated 18.[facility] Allergies No known active allergies Medications * Be aware that medications may not be up to date on this document. Alwaysverify current medications with the patient. fluticasone propionate (FLONASE) 50 MCG/ACT nasal spray Lincoln 1 Lincoln into each nostril 2 times daily. 1 Bottle 0 04/24/20 11 Active Additional Information Patient not taking.Reason: Other, Reported on 05/27/2025 HYDROcodone-ac etaminophen (NORCO) 5-325 MG tablet Take 1 Tab by mouth every 4 hours as needed for Pain 15 Tab 08/06/20 17 Active Additional Information Patient not taking.Reason: Other, Reported on 05/27/2025 lisinopril-hyd roCHLOROthiazi de (PRINZIDE; ZESTORETIC) 20-12.5 MG tablet 07/05/20 20 Active amLODIPine (NORVASC) 5 MG tablet TK 1 T PO D FOR HIGH BP 06/29/20 20 Active acetaminophen CR (TYLENOL ARTHRITIS PAIN) 650 MG tablet Active cyclobenzaprin e (FLEXERIL) 5 MG tablet Take 1 (one) tablet by mouth nightly as needed Active traMADol-aceta minophen (Ultracet) 37.5-325 MG tablet Take 1 (one) tablet by mouth every 6 hours as needed for Pain 12 tablet 08/16/20 23 Active Additional Information Patient not taking.Reason: Other, Reported on 05/27/2025 vitamin D, ergocalciferol , (Drisdol) 1.25 MG (97557 UT) capsuleIndicat ions:Psoriatic arthritis (HCC),Immunosu ppressed status (HCC),Vitamin D deficiency Take 1 (one) capsule by mouth every 7 days 12 capsule 10/04/20 24 Active Additional Information Patient not taking.Reason: Patient adjusted, Reported on 05/27/2025 cefadroxil (Duricef) 500 MG capsule 02/15/20 24 Active famotidine (Pepcid) 20 MG tablet Take 1 (one) tablet by mouth 2 times daily Active omeprazole (PriLOSEC) 40 MG capsule Take 1 (one) capsule by mouth once daily 11/06/20 24 Active prednisoLONE acetate (Pred Forte) 1 % ophthalmic suspension INSTILL 1 DROP INTO LEFT EYE FOUR TIMES A DAY FOR 10 DAYS. 02/24/20 24 Active spironolactone (Aldactone) 50 MG tablet Take 1 (one) tablet by mouth once daily 07/05/20 24 Active methotrexate 2.5 MG tabletIndicati ons:Psoriatic arthritis (HCC),Polyarth ralgia TAKE 6 TABLETS BY MOUTH EVERY 7 DAYS. 72 tablet 04/03/20 25 Active atorvastatin (Lipitor) 40 MG tablet Take 1 (one) tablet by mouth once daily 04/09/20 25 Active metoprolol tartrate IR (Lopressor) 25 MG tablet Take 1 (one) tablet by mouth 2 times daily 04/01/20 25 026 Active meloxicam (Mobic) 15 MG tablet TAKE 1 TABLET BY MOUTH EVERY DAY WITH FOOD NEEDED FOR PAIN 90 tablet 04/17/20 25 Active Enbrel SureClick 50 MG/ML auto-injector pen INJECT 50 MG UNDER THE SKIN (SUBCUTANEOUS INJECTION) EVERY 7 DAYS 4 mL 2 05/01/20 25 Active predniSONE (Deltasone) 5 MG tabletIndicati ons:Psoriatic arthritis (HCC),Polyarth ralgia 4 EVERY DAY FOR 7 DAYS THEN 3 FOR 7, 2 FOR 7, AND 1 FOR 7 DAYS 70 tablet 05/15/20 25 Active DULoxetine (Cymbalta) 30 MG capsuleIndicat ions:Psoriatic arthritis (HCC),Polyarth ralgia,Chronic pain of both knees TAKE 1 CAPSULE BY MOUTH EVERY DAY 30 capsule 06/03/20 25 Active folic acid (Folvite) 1 MG tabletIndicati ons:Polyarthra lgia,Immunosup pressed status (HCC),Vitamin D deficiency TAKE 1 TABLET BY MOUTH EVERY DAY 90 tablet 06/03/20 25 Active folic acid (Folvite) 1 MG tablet Take 1 (one) tablet by mouth once daily 90 tablet 03/03/20 25 025 Discontinued DULoxetine (Cymbalta) 30 MG capsule TAKE 1 CAPSULE BY MOUTH EVERY DAY 30 capsule 04/05/20 25 025 Discontinued Active Problems Patient Care Coordination No te Formatting of this note migh t be different from the original. Primary Care Provider: Kerry Tejeda MD [address] [facility] [address] Referring Provider: Kerry Tejeda MD [address] [place] [address] Nurse prat: itzel nunez Problem Noted Date Diagnosed Date Gastroesophageal reflux disease 03/03/2022 Pain of upper abdomen 03/03/2022 Screen for colon cancer 03/03/2022 Anemia 03/03/2022 Chondromalacia of patellofemoral joint 7 Encounters Date Type Department Care Team Description 06/01/2025 Refill [facility] - Rheumatology [address] [place] [address] [address] [place] [address] Lilibeth Smith MD Refill Request 05/31/2025 Refill [facility] - Rheumatology [id number] [place] [address] [address] [place] [address] Lilibeth Smith MD Refill Request 05/29/2025 Telephone [facility] Pain Care [address] [place] [phone] Azeb Huynh Scheduling 05/27/2025 7:45 AM CDT Office Visit [facility] Care [address] [place] [address]. [place] [address] David Childs MD Lumbar facet arthropathy (Primary Dx); Lumbar facet joint pain 05/14/[address] [facility] Rheumatology [address] [place] [address] Ami Mclaughlin APRN-DEEPIKA Refill Request 05/12/2025 11:00 AM CDT - 05/12/2025 11:59 PM CDT Hospital Encounter [facility] Imaging Services - Radiology [address] [place] [address] Ami Mclaughlin APRN-NURSES EDUCATOR Discharge Disposition: Home or Self Care 04/27/[address] [facility] Rheumatology [address] [place] [address] Lilibeth Smith MD Refill Request 04/17/2025 3:00 PM CDT Office Visit [facility] Rheumatology [address] [place] [address] Ami Mclaughlin APRN-DEEPIKA Psoriatic arthritis (HCC) (Primary Dx); Numbness and tingling in both hands; Chronic pain of both knees; Polyarthralgia; Immunosuppressed status (HCC); High risk medications (not anticoagulants) long-term use; Vitamin D deficiency; Lumbar pain; Elevated sed rate 04/15/2025 8:50 AM CDT Office Visit [facility] Pain Care [address] [place] [address]. [place] [phone] David Childs MD Lumbar facet arthropathy (Primary Dx); HNP (herniated nucleus pulposus), lumbar; Gait difficulty; Spinal stenosis of lumbar region, unspecified whether neurogenic claudication present 04/15/2025 Travel 04/06/2025 Results Follow-Up [facility] Rheumatology [address] [place] [address] Lilibeth Smith MD 04/05/2025 Refill [facility] - Rheumatology [id number] [place] [address] [address] [place] [address] Lilibeth Smith MD Refill Request 04/02/2025 Refill [facility] - Rheumatology [id number] [place] [address] [address] [place] [address] Lilibeth Smith MD Refill Request 04/01/[address] [facility] Rheumatology [id number] [place] [address] [address] [place] [address] Lilibeth Smith MD Refill Request from Last 3 Months Immunizations Immunization Administration Dates Next Due INFLUENZA VACCINE, TRIV. 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 Not on file Not on file Not on file Last Filed Vital Signs Vital Sign Reading Time Taken Comments Blood Pressure 144/88 04/17/2025 3:01 PM CDT Pulse 83 04/17/2025 2:52 PM CDT Temperature 37 C (98.6 F) 08/14/2023 9:15 AM CDT Respiratory Rate 16 08/14/2023 9:15 AM CDT Oxygen Saturation 97% 04/17/2025 2:52 PM CDT Inhaled Oxygen Concentration - - Weight 81.2 kg (179 lb) 04/17/2025 2:52 PM CDT Height 149.9 cm (4' 11) 04/17/2025 2:52 PM CDT Body Mass Index 36.15 04/17/2025 2:52 PM CDT Plan of Treatment Upcoming Encounters Date Type Department Care Team (Late st Contact Info) Description 06/25/2025 8:50 AM CDT Office Visit [facility] Orthopedics [address] [facility], [address] [place] [phone] [place] [address] [address] [facility] [address] [place] [phone] 07/09/2025 9:00 AM CDT Appointment [facility] Neurosciences [address] [address] [address] 08/21/2025 2:00 PM CDT Office Visit [facility] - Rheumatology [address] [facility] [address] [place] [address] [place] [address] [facility] [address] [place] [address] Health Maintenance Due Date Last Done Comments COLOGUARD (AGES 45-75) - COLON CA SCREENING 1970 CT COLONOGRAPHY - COLON CA SCREENING 1971 FIT - COLON CA SCREENING 1971 FLEX SIG - COLON CA SCREENING 1971 DTAP/TDAP/TD VACCINES (1 - Tdap) 1990 HEPATITIS B VACCINE (1 of 3 - 19+ 3-dose series) 1990 PNEUMOCOCCAL VACCINE 50+ (1 of 2 - PCV) 1990 ZOSTER VACCINE (1 of 2) 1990 PAP SMEAR 1992 COVID-19 VACCINE (3 - Moderna risk series) 04/14/2021 03/17/2021, 02/17/2021 INFLUENZA VACCINE (#1) 2025 , 09/22/2021, 10/29/2019, Additional history exists MAMMOGRAM 08/08/2026 08/08/2024, 07/28, 08/17/2023, Additional history exists SCREENING FOR DIABETES 04/04/2028 , 04/03/2025, 04/03/2025, Additional history exists COLON MONITORING 04/05/2032 04/05/2022, 04/05/2022 COLONOSCOPY - COLON CA SCREENING 04/05/2032 04/05/2022, 04/05/2022 Colorectal Cancer Screening 04/05/2032 HIV SCREENING Completed 07/03/2022 HEPATITIS C SCREENING Completed 12/04/2024 , 11/28/2023, 09/07/2022, Additional history exists DEPRESSION SCREENING Completed 12/18/2024, 08/07/20 HIB VACCINE Aged Out No longer eligi ble based on patient's age to complete this topic HPV VACCINE Aged Out No longer eligi ble based on patient's age to complete this topic MENINGOCOCCAL (Group B) VACCINE SHARED DECISION-MAKING Aged Out No longer eligible based on patient's age to complete this topic MENINGOCOCCAL GROUPS A/C/Y/W VACCINE Aged Out No longer eligible based on patient's age to complete this topic Procedures Procedure Name Priority Date/Time Associated Diagnosis Comments XR KNEE BILAT 3VW Routine 05/12/2025 11: 22 AM CDT Numbness and tingling in both hands Chronic pain of both knees ERYTHROCYTE SEDIMENTATION RATE Routine 04/04/2025 10:46 AM CDT Psoriatic arthritis (HCC) Immunosuppressed status (HCC) Vitamin D deficiency Polyarthralgia High risk medications (not anticoagulants) long-term use Elevated sed rate C-REACTIVE PROTEIN Routine 04/04/2025 10 :46 AM CDT Psoriatic arthritis (HCC) Immunosuppressed status (HCC) Vitamin D deficiency Polyarthralgia High risk medications (not anticoagulants) long-term use Elevated sed rate COMPREHENSIVE METABOLIC PANEL Routine 04/04/2025 10:46 AM CDT Psoriatic arthritis (HCC) Immunosuppressed status (HCC) Vitamin D deficiency Polyarthralgia High risk medications (not anticoagulants) long-term use Elevated sed rate CBC W AUTO DIFFERENTIAL Routine 04/04/2025 10:46 AM CDT Psoriatic arthritis (HCC) Immunosuppressed status (HCC) Vitamin D deficiency Polyarthralgia High risk medications (not anticoagulants) long-term use Elevated sed rate HEPATITIS SCREEN ACUTE ([facility]) Routine 12/04/2024 1:06 PM HAIR SPRING WINDER Psoriatic arthritis Immunosuppressed status Vitamin D deficiency Polyarthralgia High risk medications (not anticoagulants) long-term use Elevated sed rate MAMMO BILAT SCREENING W AZUCENA Routine 08/17/2023 2:49 PM CDT Encounter for screening mammogram for malignant neoplasm of breast HIV-1 HIV-2 ANTIBODY + HIV P24 AG PANEL STAT 07/03/2022 11:37 PM CDT ENDOSCOPY, COLON, SCREENING Routine 04/05/2022 8:43 AM CDT from Last 3 Months or Most Recently Relevant to Health Maintenance Results * XR Knee Bilat 3Vw (05/12/2025 11:22 AM CDT) Anatomical Region Laterality Modality Lower Extremity Computed Radiogr aphy 05/12/2025 12:5 5 PM CDT Impressions 05/12/2025 1:22 PM CDT IMPRESSION: Degenerative changes. Edited by Tracey Hodges on 05/12/2025 12:57 PM > Interpreting Provider: Deshaun Bella MD on 05/12/2025 1:22 PM Narrative 05/12/2025 1:22 PM CDT PROCEDURE: XR KNEE BILAT 3VW DATE/TIME OF EXAM: 05/12/2025 11:22 AM INDICATION: R20.0: Numbness and tingling in both hands. R20.2: Numbness and tingling in both hands. M25.561: Chronic pain of both knees. M25.562: Chronic pain of both knees. G89.29: Chronic pain of both knees. Additional History: COMPARISON: 08/06/2017. FINDINGS: Three views bilateral knees show tricompartmental joint space narrowing. Small periarticular spurs are present. There is no acute fracture or subluxation. Procedure Note Deshaun Bella MD - 05/12/2025 PROCEDURE: XR KNEE BILAT 3VW DATE/TIME OF EXAM: 05/12/2025 11:22 AM INDICATION: R20.0: Numbness and tingling in both hands. R20.2: Numbness and tingling in both hands. M25.561: Chronic pain of both knees. M25.562: Chronic pain of both knees. G89.29: Chronic pain of both knees. Additional History: COMPARISON: 08/06/2017. FINDINGS: Three views bilateral knees show tricompartmental joint space narrowing. Small periarticular spurs are present. There is no acute fracture or subluxation. IMPRESSION: Degenerative changes. Edited by Tracey Hodges on 05/12/2025 12:57 PM > Interpreting Provider: Deshaun Bella MD on 05/12/2025 1:22 PM Ami Mclaughlin NATIONAL FACILITIES MANAGER-NURSES EDUCATOR DIAGNOSTIC IMAGING ORDERABLES Final Result * C-REACTIVE PROTEIN (04/04/2025 10:46 AM CDT) C-Reactive Protein 1 0 - 10 mg/L [facility] ACCOUNT BILL Blood BLOOD SPECIMEN / Unknown 04/04/2025 10:46 AM CDT 04/04/2025 Narrative [facility] ACCOUNT BILL - 04/05/2025 6:09 AM CDT Performed at: 01 - [facility] [address] [id number] Central Lab Technician: Asa Perdomo PhD, Phone: [phone] Lilibeth Smith MD LAB - CHEMISTRY ORDERABLES Bina l Result [facility] ACCOUNT BILL [address] [place] [address] * (ABNORMAL) ERYTHROCYTE SEDIMENTATION RATE (04/04/2025 10:46 AM CDT) Erythrocyte Sedimentation Rate Westergren 63(H) 0 - 40 mm/hr [facility] ACCOUNT BILL Blood BLOOD SPECIMEN / Unknown 04/04/2025 10:46 AM CDT 04/04/2025 Narrative [facility] ACCOUNT BILL - 04/05/2025 6:09 AM CDT Performed at: 01 - [facility] [id number] Central Lab Technician: Asa Perdomo PhD, Phone: [phone] us Lilibeth Smith MD LAB - HEMATOLOGY ORDERABLES Fin al Result [facility] ACCOUNT BILL [address] [place] [address] * CBC WITH DIFFERENTIAL (04/04/2025 10:46 AM CDT) WBC 7.8 3.4 - 10.8 x10E3/uL [facility] ACCOUNT BILL RBC 3.94 3.77 - 5.28 x10E6/uL [facility] ACCOUNT BILL Hemoglobin 12.3 11.1 - 15.9 g/dL [facility] ACCOUNT BILL Hematocrit 37.4 34.0 - 46.6 % [facility] ACCOUNT BILL MCV 95 79 - 97 fL [facility] ACCOUNT BILL MCH 31.2 26.6 - 33.0 pg [facility] ACCOUNT BILL MCHC 32.9 31.5 - 35.7 g/dL [facility] ACCOUNT BILL RDW 13.2 11.7 - 15.4 % [facility] ACCOUNT BILL Platelet Count 358 150 - 450 x10E3/uL [facility] ACCOUNT BILL Granulocytes % 50 Not Estab. % [facility] ACCOUNT BILL Lymphocytes % 34 Not Estab. % [facility] ACCOUNT BILL Monocytes % 10 Not Estab. % [facility] ACCOUNT BILL Eosinophils % 4 Not Estab. % [facility] ACCOUNT BILL Basophils % 1 Not Estab. % [facility] ACCOUNT BILL Granulocytes Absolute 4.0 1.4 - 7.0 x10E3/uL [facility] ACCOUNT BILL Lymphocytes Absolute 2.7 0.7 - 3.1 x10E3/uL [facility] ACCOUNT BILL Monocytes Absolute 0.8 0.1 - 0.9 x10E3/uL [facility] ACCOUNT BILL Eosinophils Absolute 0.3 0.0 - 0.4 x10E3/uL [facility] ACCOUNT BILL Basophils Absolute 0.1 0.0 - 0.2 x10E3/uL [facility] ACCOUNT BILL Immature Granulocytes 1 Not Estab. % [facility] ACCOUNT BILL Immature Granulocytes Absolute 0.0 0.0 - 0.1 x10E3/uL [facility] ACCOUNT BILL Blood BLOOD SPECIMEN / Unknown 04/04/2025 10:46 AM CDT 04/04/2025 Narrative [facility] ACCOUNT BILL - 04/05/2025 12:07 AM CDT Performed at: 01 - [address] [id number] Central Lab Technician: Asa Perdomo PhD, Phone: [phone] us Lilibeth Smith MD LAB - HEMATOLOGY ORDERABLES Fin al Result [facility] ACCOUNT BILL [address] [place] [address] * (ABNORMAL) COMPREHENSIVE METABOLIC PANEL (04/04/2025 10:46 AM CDT) Glucose 93 70 - 99 mg/dL [facility] ACCOUNT BILL BUN 14 6 - 24 mg/dL [facility] ACCOUNT BILL Creatinine 0.69 0.57 - 1.00 mg/dL [facility] ACCOUNT BILL eGFR by CKD-EPI 104 >59 mL/min/1.7 3 [facility] ACCOUNT BILL BUN/Creatinine Ratio 20 9 - 23 [facility] ACCOUNT BILL Sodium 139 134 - 144 mmol/L [facility] ACCOUNT BILL Potassium 4.3 3.5 - 5.2 mmol/L [facility] ACCOUNT BILL Chloride 102 96 - 106 mmol/L [facility] ACCOUNT BILL CO2 24 20 - 29 mmol/L [facility] ACCOUNT BILL Calcium 10.7(H) 8.7 - 10.2 mg/dL [facility] ACCOUNT BILL Protein Total 8.2 6.0 - 8.5 g/dL [facility] ACCOUNT BILL Albumin 4.4 3.8 - 4.9 g/dL [facility] ACCOUNT BILL Globulin Total 3.8 1.5 - 4.5 g/dL [facility] ACCOUNT BILL Bilirubin Total 0.3 0.0 - 1.2 mg/dL [facility] ACCOUNT BILL Alkaline Phosphatase 81 44 - 121 IU/L [facility] ACCOUNT BILL AST 26 0 - 40 IU/L [facility] ACCOUNT BILL ALT 32 0 - 32 IU/L [facility] ACCOUNT BILL Blood BLOOD SPECIMEN / Unknown 04/04/2025 10:46 AM CDT 04/04/2025 Narrative [facility] ACCOUNT BILL - 04/05/2025 6:09 AM CDT Performed at: - [facility] [id number] Central Lab Technician: Asa Perdomo PhD, Phone: [phone] Lilibeth Smith MD LAB - CHEMISTRY ORDERABLES Bina l Result [facility] ACCOUNT BILL [address] [place] [address] * HEPATITIS SCREEN ACUTE ([facility]) (12/04/2024 1:06 PM HAIR SPRING WINDER) [facility] Hepatitis A Virus Antibody IgM Negative Negative [facility] ACCOUNT BILL Comment: A negative anti-HAV IgM result suggests no recent or current HAV infection. Hepatitis B Virus Surface Antigen Negative Negative [facility] ACCOUNT BILL Hepatitis B Core Virus Antibody IgM Negative Negative [facility] ACCOUNT BILL Hepatitis C Antibody Non Reactive Non Reactive [facility] ACCOUNT BILL Comment: Performed at: [address] [id number] Central Lab Technician: Asa Perdomo PhD, Phone: [phone] Interpretation Comment [facility] ACCOUNT BILL Comment: Not infected with HCV unless early or acute infection is suspected (which may be delayed in an immunocompromised individual), or other evidence exists to indicate HCV infection. Blood BLOOD SPECIMEN / Unknown 12/04/2024 1:06 PM HAIR SPRING WINDER 12/04/2024 Narrative [facility] ACCOUNT BILL - 12/05/2024 7:09 AM HAIR SPRING WINDER Performed at: [address] [place] [id number] Central Lab Technician: Asa Perdomo PhD, Phone: [phone] Lilibeth Smith MD LAB - CHEMISTRY ORDERABLES Bina l Result [facility] ACCOUNT BILL [address] [place] [address] * MAMMO BILAT SCREENING W AZUCENA (08/17/2023 [...] cyst in the left breast. Melisa Marvin NATIONAL FACILITIES MANAGER-NURSES EDUCATOR MAMMO ORDERABLES Final Re sult * HIV-1 HIV-2 ANTIBODY + HIV P24 AG PANEL (07/03/2022 11:37 PM CDT) HIV1/2 Ab + P24 Ag Non Reactive Non Reactive 07/04/2022 12:37 AM CDT [facility] Blood BLOOD SPECIMEN / Unknown Venipuncture / Unknown 07/03/2022 11:37 PM CDT 07/03/2022 11:56 PM CDT Narrative [facility] - 07/04/2022 12:37 AM CDT No Laboratory evidence of HIV infection. us Lizette Mazariegos MD LAB - CHEMISTRY ORDERABLES Johnny monaco Result [facility] [address] [facility] [place] [address] * ENDOSCOPY, COLON, SCREENING (04/05/2022 8:43 AM [...] bowel preparation was evaluated using the BBPS ([place] Bowel Preparation Scale) with scores of: Right [...] for surveillance. Procedure Code(s): --- Professional --- 59652, Colonoscopy, flexible; with biopsy, single or multiple --- Technical --- 70113, Colonoscopy, flexible; with biopsy, single or multiple Diagnosis Code(s): --- Professional --- Z12.11, Encounter for screening for malignant neoplasm of colon K63.5, Polyp of colon --- Technical --- Z12.11, Encounter for screening for malignant neoplasm of colon K63.5, Polyp of colon CPT copyright 2019 [employer]. All rights reserved. The codes documented in this report are preliminary and upon vice principal review may be revised to meet current compliance requirements. __ Shira Hogan MD 04/05/2022 10:22:06 AM Number of Addenda: 0 Note Initiated On: 04/05/2022 8:43 AM DP ENDOSCOPY 04/05/2022 8:43 AM CDT us Shira Hogan MD GI PROCEDURE ORDERABLES Edite d Result - Final [facility] [place] [address] from Last 3 Months or Most Recently Relevant to Health Maintenance Insurance [facility] [employer] [place] [id number] * Guarantor: GHADA BARRERA Account Type Relation to Patient Date of Phone Billing Address Personal/Family [id number] [place] [id number] Advance Directives * Full Code (Latest Code Status on File) Date Activated Date Inactivated Comments 12/17/2016 6:19 AM 12/18/2016 3:34 PM Care Teams Diesel Plant Operator Relationship Specialty Start Date End Date Nasreen Nicholson PA-C [address] [place] [address] PCP - General Physician Welder Assembler 03/14/25 Kerry Tejeda MD [address] [place] [address] Internal Medicine 08/05/20 [place] [address] [address] [place] [phone] Orthopedic Surgery 07/26/17
--- OUTSIDE RECORDS SUMMARY | 2025-06-20 18:37 | XMS_ITS | Clinical Summary ---
Author Organization [facility] Address [address] [place] [address] Care Team Providers Care Trainman Name Role Phone Nasreen Nicholson Primary Care [...] mg total) by mouth daily 30 capsule 4 Active metoprolol tartrate (LOPRESSOR) 25 mg immediate [...] Description 04/01/2025 2:00 PM CDT Office Visit [place] [facility] at [address] [id number] Martin Golden MD Palpitations (Primary Dx) from Last 3 Months Immunizations Immunization Administration [...] Smokeless Tobacco: Never Tobacco Cessation:Counseling Given: No [facility] Utilities Answer Date Recorded In the past 12 months has [employer], [employer], oil, or water [employer] threatened to shut off services in your [...] 02/09/2024 How often do you attend chur or sabianism services? Never 02/09/2024 Do you belong to any clubs o r organizations such as scientology groups, unions, fraternal or athletic groups, or [...] place to sleep or slept in a care home (including now)? 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 Gender Identity Not on file Sexual Orientation [...] 04/01/2025 2:06 PM CDT Plan of Treatment Health Maintenance Due Date Last Done Comments Colon Cancer Screening-Colonoscopy 1971 Depression Screening 1971 Hepatitis C Screening 1971 DTaP/Tdap/Td Vaccine (1 - Tdap) 1982 Hepatitis B Screening 1989 Pneumococcal vaccine <65 (1 of 2 - PCV) 1990 Zoster Vaccine (1 of 2) 1990 Covid-19 Vaccine (3 - Modern a risk series) 04/14/2021 03/17/2021, 02/17/2021 Influenza Vaccine (#1) 2025 , 09/22/2021, 10/29/2019, Additional history exists Breast Cancer Screening-Mammogram 08/08/2025 08/08/2024, 08/17/2023, 08/17/2023, Additional history exists Cervical Cancer Screening 08/08/2025 08/08/2024, 10/2024 Regular Well Visit/Exam 18-64 08/08/2025 08/08/2024 Procedures Procedure Name Priority Date/Time Associated Diagnosis Comments HIGH RISK HPV DNA DETECTION WITH GENOTYPING Routine 08/08/2024 11:11 AM CDT Screening for malignant neoplasm of cervix SCREENING MAMMOGRAM BILATERAL W AZUCENA Schedule Routine, Read Routine (OP Routine) 08/08/2024 11:04 AM CDT Encounter for screening mammogram for malignant neoplasm of breast from Last 3 Months or Most Recently Relevant to Health Maintenance Results * High Risk HPV DNA Detection with Genotyping (Molecular component) (08/08/2024 11:11 AM CDT) HPV HR 16 Not Detected Not Detected [facility] Comment:Testing performed by : [facility], [address] [place] [address] HPV HR 18 Not Detected Not Detected [facility] Comment:Testing performed by : [facility], [address] [place] [address] HPV HR Non 16/18 Not Detected Not [...] test have been verified by the [facility] Molecular Infectious Disease laboratory. Correlate with separately reported cytology results, as applicable. Interpretive data last revised 23 Testing performed by: [facility], [address] [place]., [address] Endocervical 08/08/2024 11:1 1 AM CDT 08/09/2024 12:01 PM CDT Narrative [facility] - 08/09/2024 11:38 PM CDT Clinical history and diagnosis->Liquid-based PAP test with high risk HPV test- Z12.4 Number of vials->1 Testing type->Screening Last menstrual period (date if known)->02/12/24 Corie Mcdowell DO LAB BODY FLUIDS AND STO OLS ORDERABLES Final Result [facility] [id number] Department [place] [address] [facility] * Screening Mammogram Bilateral W Azucena (08/08/2024 11:04 AM CDT) Anatomical Region Laterality [...] AM CDT EXAMINATION: SCREENING MAMMOGRAM BILATERAL W AZUCENA ORDERING HEALTHCARE PROVIDER: CORIE MCDOWELL HISTORY: Routine screening mammography. COMPARISON: 08/17/2023, [...] - 08/12/2024 EXAMINATION: SCREENING MAMMOGRAM BILATERAL W AZUCENA ORDERING HEALTHCARE PROVIDER: CORIE MCDOWELL HISTORY: Routine screening mammography. COMPARISON: 08/17/2023, [...] mammogram. Electronically signed by: Mahnaz Garrison M.D. Corie Mcdowell DO IMG MAMMO PROCEDURES Ed ited Result - Final from Last 3 Months or Most Recently Relevant to Health Maintenance Insurance [facility] H[facility]/PPO Address: [facility] [address] [place] [address] [facility] HMO/PPO Address: [facility] [id number] [place] [address] Care Teams Trainman Relationship Specialty Start Date End Date Nasreen Nicholson PA PCP - General Neurosurgery 03/19/24
--- NOTE | 2025-06-20 18:38 | ECG_ITS ---
Test Date: 2025-06-20 18:43:33 Measurements Intervals [place] Rate: 98 P: 57 [place]: 171 QRS: 50 QRSD: 89 T: 49 QT: 360 QTc: 461 Interpretive Statements SINUS RHYTHM POSSIBLE LEFT ATRIAL ENLARGEMENT [-0.1mV P WAVE IN V1/V2] NONSPECIFIC T-WAVE ABNORMALITY WARNING: DATA QUALITY MAY AFFECT INTERPRETATION Compared to ECG 11/06/2024 13:51:26 No significant changes Electronically Signed On 06-21-2025 18:48:43 CDT by Alpesh Harrell M.D.
--- NOTE | 2025-06-20 18:39 | ED_ITS ---
HPI - Chest Pain General Chief Complaint: Chest Pain Stated Complaint: Heart Rate Problem/Chest Tightness/Headache Time Seen by Provider: 06/20/25 18:39 Source: patient Mode of arrival: ambulatory Limitations: no limitations History of Present Illness HPI narrative: 54 yo F presents with c/o intermittent midsternal chest tightness, constant dizziness, fatigue starting around 2pm. Denies SOB, N/V. Denies URI symptoms. States checked HR and BP at home and very low. HR was 50. this is not normal for me. All systems reviewed and negative except as noted above. Related Data Home Medications ?Medication ?Instructions ?Recorded ?Confirmed ?Last Taken ?Type amlodipine 10 mg tablet mg 11/06/24 Unknown History duloxetine 30 mg capsule,delayed mg PO 11/06/24 Unknown History release ergocalciferol (vitamin D2) 1,250 11/06/24 Unknown History mcg (50,000 unit) capsule famotidine 20 mg tablet mg 11/06/24 Unknown History folic acid 1 mg tablet 11/06/24 Unknown History lisinopril 20 tablet 11/06/24 Unknown History mg-hydrochlorothiazide 12.5 mg tablet meloxicam 15 mg tablet mg 11/06/24 Unknown History methotrexate sodium 2.5 mg tablet mg 11/06/24 Unknown History spironolactone 50 mg tablet mg 11/06/24 Unknown History Enbrel 01/12/25 Unknown History Vitamin C 01/12/25 Unknown History atorvastatin 40 mg tablet mg 06/20/25 Unknown History metoprolol tartrate 25 mg tablet mg 06/20/25 Unknown History omeprazole 20 mg capsule,delayed mg 06/20/25 Unknown History release omeprazole 40 mg capsule,delayed mg 06/20/25 Unknown History release prednisone 5 mg tablet mg 06/20/25 Unknown History Allergies Allergy/AdvReac Type Severity Reaction Status Date / Time No Known Allergies Allergy Verified 06/20/25 18:59 [facility], [facility] Past Medical History Medical History (Updated 06/20/25 @ 18:52 by Annalise James NP) Psoriatic arthritis HTN (hypertension) Surgical History Surgical History No pertinent past surgical history Family History Family History (Updated 01/12/25 @ 14:56 by Deshaun Mendenhall, TAYLOR, ) Mother Family history non-contributory Social History Social History Smoking status: Never smoker Substance use: never Living arrangements: with family Gender identity (if verbalized by the patient): Female Comments At time of signature, agree with nursing past medical, surgical, social and family history. There is no relevant family history pertinent to the presenting complaint. Exam Narrative: GENERAL: This is a well-nourished, well-developed patient, in no apparent distress. HEAD: normocephalic, atraumatic. EYES: PERRL. Sclera clear/white. Vision is grossly intact. EARS: External ears normal NOSE: External nose normal NECK: Neck supple, non-tender without lymphadenopathy, masses or thyromegaly. CARDIOVASCULAR: Regular rate and rhythm without murmurs, gallops, or rubs. RESPIRATORY: Clear to auscultation. Breath sounds equal bilaterally. No wheezes, rales, or rhonchi. SKIN: warm, Dry, intact with no suspicious lesions or rash, good texture and turgor. NEURO: awake, alert, and oriented to person, place and time. There were no obvious focal neurologic abnormalities. EXTREMITIES: No joint tenderness, effusion, or edema noted. Course Course Level of Care: Express Care Visit Vital Signs Vital signs: reviewed Transfer Transfered to: [facility] Transportation: ALS Transfer rationale: transferring to ER for further evaluation of CP, dizziness Accepting physician: Dr. Melendez [facility] - Chest Pain MDM Narrative Medical decision making narrative: EKG HR 98, NSR, no ischemic changes transferring pt to ER for further evaluation of chest pain. VSS. Differential Diagnosis Differential diagnosis: Likely pneumothorax, stable angina, unstable angina pectoris, atypical chest pain, st elevation myocardial infarction, costochondritis and chest pain Discharge Plan Discharge Clinical Impression: Chest pain Patient Disposition: Acute Care Hospital Condition: Stable Patient Language: Upper Sorbian Prescriptions: No Action lisinopril-hydrochlorothiazide 20-12.5 mg tablet meloxicam 15 mg tablet famotidine 20 mg tablet methotrexate sodium 2.5 mg tablet amlodipine 10 mg tablet folic acid 1 mg tablet ergocalciferol (vitamin D2) 1,250 mcg (50,000 unit) capsule spironolactone 50 mg tablet duloxetine 30 mg capsule,delayed release(DR/EC) PO Vitamin C Enbrel doxycycline hyclate 100 mg tablet 100 mg PO BID 10 Days Qty: 20 0RF atorvastatin 40 mg tablet prednisone 5 mg tablet omeprazole 40 mg capsule,delayed release(DR/EC) omeprazole 20 mg capsule,delayed release(DR/EC) metoprolol tartrate 25 mg tablet Follow-up/Referrals: UNKNOWN,DOCTOR [Primary Care Provider] - Time of Disposition: 18:52
[2025-06-20 18:40] VITALS: BP 136/64; PULSE 84; RESP 16; TEMP 36.3; O2SAT 99
[2025-06-20 19:09] VITALS: TEMP 37.5
[2025-06-20 19:21] LABS: EDCOVIDSCREEN Negative (Negative); EDINFLUASCREEN Negative (Negative); EDINFLUBSCREEN Negative (Negative)
== END 2025-06-20 19:05 | disposition short-term general hospital (02) ==
PROVIDERS: Emergency Provider Nurse Practitioner Family
DX: R07.9 Chest pain, unspecified (principal); I10 Essential (primary) hypertension; L40.50 Arthropathic psoriasis, unspecified; Z20.822 Contact with and (suspected) exposure to COVID-19
CPT/HCPCS: 87426; 87804; 93005; 99215; G0463